=== PATIENT | female | born 1960 | race Caucasian/White ===

== ENCOUNTER 2016-10-07 15:15 | Inpatient (IN) | payer OTHER ==
[~2016-10-07] VITALS: Ht 165.1 cm; Wt 109.9 kg
[2016-10-07 15:15] VITALS: BP 148/76
[~2016-10-07 15:15] MED LIST: ACETAMINOPHEN-H1 TA2 PO; ADVAIR 250/501 EA INH; ALBUTEROL0.09 MG/A2 IH; ALBUTEROL2.5 MG/0.5 INH; ALLERGY MEDICAT25 MG PO; ALPRAZOLAM0.5 M3 PO; ALPRAZOLAM1 M2 PO; ALPRAZOLAM1 MG PO; AMITRIPTYLINE50 MG PO; AMOXIL500 MG PO; ASPIR 8181 MG PO; ASPIRIN325 MG PO; ASPIRIN81 M1 PO; ATARAX25 MG PO; ATIVAN1 MG PO; AUGMENTIN 875 M1 TAB PO; AZITHROMYCIN250 MG PO; BUDEPRION XL150 MG PO; BUPROPION ER100 M1 PO; BUPROPION HCL150 M2 PO; BUPROPION HCL300 MG PO; BUPROPION PO; CARAFATE1 G1 PO; CARVEDILOL3.125 MG PO; CEFTRIAXON2 GM/50 ML IV; CETIRIZINE10 MG PO; CILOXAN 5 ML5 M1 OP; COMBIVENT1 AR1 IH; COMBIVENT1 ARO IH; COREG6.25 MG PO; Clopidogrel75 MG PO; DELTASONE10 MG PO; DELTASONE20 MG PO; DIFLUCAN100 MG PO; DIFLUCAN150 MG PO; DIOVAN HCT 12.51 TA6 PO; DIOVAN160 M1 PO; DOLOPHINE5 MG PO; DUONEB 3 MG/3 ML3 M1 INH; DUONEB 3 MG/3 ML3 M1 NEB; EFFER-K10 MEQ PO; EFFIENT10 M1 PO; EFFIENT10 MG PO; EFFIENT5 MG PO; ELAVIL25 MG PO; FUROSEMIDE20 MG PO; GEMFIBROZIL600 MG PO; HYDROXYZINE PAM50 MG PO; IMDUR SA60 M1 PO; IMDUR SA60 MG PO; IMDUR30 MG PO; IMDUR60 MG PO; K-Dur 20MEQ20 MEQ PO; KEFLEX500 MG PO; KENALOG 0.1% OI15 GM T; LASIX20 MG PO; LEVOTHYROXINE PO; LEVOTHYROXINE300 MCG PO; LIDEX0.05% T; LISINOPRIL5 MG PO; LOPID600 M1 PO; LOPID600 MG PO; LYRICA100 MG PO; LYRICA150 MG PO; LYRICA300 MG PO; LYRICA50 MG PO; MEDROL DOSEPAK4 MG PO; METFORMIN500 MG PO; METHOCARBAMOL500 MG PO; MONTELUKAST SOD10 MG PO; MOTRIN800 MG PO; NEURONTIN100 MG PO; NEURONTIN300 MG PO; NICODERM21 MG/24 H TD; NITROSTAT0.4 MG SL; NIZORAL 2%15 GM T; NORCO 5-325 TA1 EACH PO; Oscal,Oyster S500 MG PO; PANTOPRAZOLE SO40 MG PO; PEPCID20 MG PO; PLAVIX75 MG PO; POTASSIUM CHLO20 ME3 PO; POTASSIUM PO; PRAVACHOL40 MG PO; PRAVASTATIN SOD40 MG PO; PREDNICOT10 MG PO; PREDNISOLONE OP; PREDNISONE10 MG PO; PREDNISONE20 MG PO; PREDNISONE50 MG PO; PRISTIQ100 MG PO; PRISTIQ50 MG PO; PROAIR HFA0.09 MG/AC INH; PROAIR HFA8.5 GM INH; PROTONIX40 MG PO; SEROQUEL25 MG PO; SIMVASTATIN80 MG PO; SINGULAIR10 MG PO; SLOW-K8 MEQ PO; SYMBICORT1 AE1 INH; SYNTHROID,LEVO25 MCG PO; SYNTHROID0.3 MG PO; Synthroid; Synthroid,Lev150 MCG PO; TIZANIDINE HCL2 MG PO; TOPAMAX200 MG PO; TRAMADOL HCL50 MG; TRAZODONE HYDR100 MG PO; TUSSI-ORGANIDI480 ML PO; ULTRAM100 MG PO; ULTRAM50 MG PO; VENTOLIN H0.09 MG/AC INH; VIBRAMYCIN100 MG PO; VICODIN 5/500 505 MG PO; VICODIN 500 MG-1 TAB PO; VICODIN1 TAB PO; VISTARIL25 MG PO; VITAMIN D50000 I2 PO; VITAMIN D50000 I3 PO; WELLBUTRIN XL300 MG PO; XANAX XR2 MG PO; XANAX1 MG PO; XANAX2 MG PO; ZIRGAN5 GM OP; ZITHROMAX Z PA250 MG PO; ZOCOR20 MG PO; ZOLPIDEM10 M1 PO; ZOVIRAX800 MG PO; ZYRTEC10 M1 PO; ZYRTEC10 MG PO; [UNRECOGNIZED DRUG - REMARK]; synthroid PO
[2016-10-07 15:41] VITALS: BP 136/87
[2016-10-07] MEDS ORDERED: METFORMIN1000 MG PO (15:57)
[2016-10-07] MEDS ORDERED: HUMALOG KW200 UNIT/1 SQ (16:01)
[2016-10-07] MEDS ORDERED: LIPITOR40 MG PO (16:01)
[2016-10-07] MEDS ORDERED: TYLENOL325 M1 PO (16:02)
[2016-10-07] MEDS ORDERED: WELLBUTRIN XL150 MG PO (16:03)
[2016-10-07 16:04] LABS: BASO # 0.1 10*3/uL (0.0-0.1); BASO % 0.7 % (0.0-1.0); EOS # 0.2 10*3/uL (0.0-0.4); HEMATOCRIT 35.2 % (37.0-47.0); HEMOGLOBIN 11.3 g/dl (12.0-16.0); IG # 0.1 10*3/uL (0.0-0.1); LYMPH # 1.6 10*3/uL (1.3-4.4); LYMPH % 22.3 % (27.0-41.0); MEAN CELL VOLUME 87.1 fl (81.0-99.0); MEAN CORPUSCULAR HGB CONC 32.1 g/dl (33.0-37.0); MEAN PLATELET VOLUME 9.6 fl (9.6-12.3); MONO # 0.5 10*3/uL (0.1-1.0); MONO % 6.6 % (3.0-9.0); NEUT # 4.8 10*3/uL (2.3-7.9); NEUT % 66.2 % (47.0-73.0); NUCLEATED RED BLOOD CELL 0.1 10*3/uL (0.0-0.0); NUCLEATED RED BLOOD CELL 0.7 % (0.0-0.0); PLATELET COUNT AUTOMATED 346 10*3/uL (130-400); RED BLOOD COUNT 4.04 10*6/uL (4.10-5.10); RED CELL DISTRI WIDTH 16.1 % (0-14.5); WHITE BLOOD COUNT 7.3 10*3/uL (4.8-10.8)
[2016-10-07] MEDS ORDERED: PREDNISONE10 MG PO (16:05)
[2016-10-07] MEDS ORDERED: PREDNISONE10 M1 PO (16:05)
[2016-10-07 16:11] VITALS: BP 135/94
[2016-10-07 16:13] LABS: PROTHROMBIN TIME 10.4 SECONDS (9.0-12.4)
[2016-10-07 16:20] LABS: BUN 14 mg/dl (7-24); CARBON DIOXIDE 26 mmol/L (21-32); CHLORIDE 109 mmol/L (98-107); EST GLOM FILT AFRICAN AMERICAN > 60 ml/min; GLUCOSE 133 mg/dL (65-99); POTASSIUM 4.2 mmol/L (3.5-5.1); SODIUM 145 mmol/L (136-145)
[2016-10-07 16:22] LABS: TROPONIN I < 0.015 ng/ml (<0.045)
[2016-10-07 18:16] VITALS: BP 129/51
[2016-10-07 18:17] LABS: CPK 32 U/L (26-192)
[2016-10-07 18:23] LABS: TROPONIN I < 0.015 ng/ml (<0.045)
[2016-10-07 21:44] VITALS: BP 113/70
[2016-10-08] VITALS: BP 128/42
[2016-10-08 00:56] LABS: CKMB 1.2 ng/ml (0.5-3.6); CPK 29 U/L (26-192)
[2016-10-08 00:57] LABS: TROPONIN I < 0.015 ng/ml (<0.045)
[2016-10-08 06:06] LABS: BASO % 0.5 % (0.0-1.0); EOS # 0.1 10*3/uL (0.0-0.4); EOS % 0.7 % (1.0-4.0); HEMATOCRIT 37.9 % (37.0-47.0); HEMOGLOBIN 11.8 g/dl (12.0-16.0); IG # 0.1 10*3/uL (0.0-0.1); LYMPH # 0.9 10*3/uL (1.3-4.4); LYMPH % 10.6 % (27.0-41.0); MEAN CELL VOLUME 87.9 fl (81.0-99.0); MEAN CORPUSCULAR HGB 27.4 pg (27.0-31.0); MEAN CORPUSCULAR HGB CONC 31.1 g/dl (33.0-37.0); MEAN PLATELET VOLUME 10.1 fl (9.6-12.3); MONO # 0.2 10*3/uL (0.1-1.0); MONO % 1.8 % (3.0-9.0); NEUT % 85.2 % (47.0-73.0); NUCLEATED RED BLOOD CELL 0.4 % (0.0-0.0); PLATELET COUNT AUTOMATED 358 10*3/uL (130-400); RED BLOOD COUNT 4.31 10*6/uL (4.10-5.10); RED CELL DISTRI WIDTH 16.1 % (0-14.5); WHITE BLOOD COUNT 8.2 10*3/uL (4.8-10.8)
[2016-10-08 06:09] LABS: CPK 26 U/L (26-192)
[2016-10-08 06:10] LABS: TROPONIN I < 0.015 ng/ml (<0.045)
[2016-10-08 06:38] LABS: ALBUMIN 3.2 gm/dl (3.1-4.5); BILIRUBIN, TOTAL 0.4 mg/dl (0.2-1.0); BUN 15 mg/dl (7-24); CARBON DIOXIDE 25 mmol/L (21-32); CHLORIDE 105 mmol/L (98-107); EST GLOM FILT AFRICAN AMERICAN > 60 ml/min; GLUCOSE 343 mg/dL (65-99); MAGNESIUM 1.9 mg/dL (1.5-2.1); PHOSPHOROUS 3.5 mg/dL (2.5-4.9); SGOT/AST 10 IU/L (3-35); SGPT/ALT 23 U/L (12-78); SODIUM 140 mmol/L (136-145); TOTAL PROTEIN 6.9 gm/dL (6.4-8.2)
[2016-10-08 06:39] LABS: ALKALINE PHOSPHATASE 96 U/L (45-117)
[2016-10-08 08:00] VITALS: BP 124/56
[2016-10-08] MEDS ORDERED: EFFIENT10 M1 PO (11:32)
[2016-10-08] MEDS ORDERED: NITROSTAT0.4 MG SL (11:32)
[2016-10-08] MEDS ORDERED: AMITRIPTYLINE50 MG PO (11:32)
[2016-10-08] MEDS ORDERED: WELLBUTRIN XL150 MG PO (11:32)
[2016-10-08] MEDS ORDERED: LOPID600 M1 PO (11:32)
[2016-10-08] MEDS ORDERED: LISINOPRIL5 MG PO (11:32)
[2016-10-08] MEDS ORDERED: LIPITOR40 MG PO (11:32)
[2016-10-08] MEDS ORDERED: COREG6.25 MG PO (11:32)
[2016-10-08] MEDS ORDERED: Synthroid,Lev150 MCG PO (11:33)
[2016-10-08] MEDS ORDERED: HUMALOG KW200 UNIT/1 SQ (11:33)
[2016-10-08] MEDS ORDERED: PANTOPRAZOLE SO40 MG PO (11:33)
[2016-10-08] MEDS ORDERED: PRISTIQ50 MG PO (11:33)
[2016-10-08] MEDS ORDERED: MONTELUKAST SOD10 MG PO (11:33)
[2016-10-08] MEDS ORDERED: ADVAIR 250/501 EA INH (11:33)
[2016-10-08] MEDS ORDERED: METFORMIN1000 MG PO (11:33)
[2016-10-08] MEDS ORDERED: POTASSIUM CHLO20 ME3 PO (11:33)
== END 2016-10-08 14:07 | disposition home or self-care (01) | DRG 392 ==
LOC: ED 15:15 → 5E 17:10 → EDHOLD 17:10 → 5E 17:38
PROVIDERS: Emergency Medicine; Internal Medicine
DX: K21.9 Gastro-esophageal reflux disease without esophagitis (principal); E11.40 Type 2 diabetes mellitus with diabetic neuropathy, unspecified; Z68.41 Body mass index [BMI] 40.0-44.9, adult; I25.119 Atherosclerotic heart disease of native coronary artery with unspecified angina pectoris; F41.9 Anxiety disorder, unspecified; J44.9 Chronic obstructive pulmonary disease, unspecified; R19.7 Diarrhea, unspecified; D64.9 Anemia, unspecified; E11.65 Type 2 diabetes mellitus with hyperglycemia; F32.9 Major depressive disorder, single episode, unspecified; I10 Essential (primary) hypertension; E03.9 Hypothyroidism, unspecified; F17.210 Nicotine dependence, cigarettes, uncomplicated; E66.01 Morbid (severe) obesity due to excess calories; Z90.49 Acquired absence of other specified parts of digestive tract; Z79.82 Long term (current) use of aspirin; Z79.51 Long term (current) use of inhaled steroids; Z79.899 Other long term (current) drug therapy; Z90.710 Acquired absence of both cervix and uterus; Z95.5 Presence of coronary angioplasty implant and graft; Z88.8 Allergy status to other drugs, medicaments and biological substances; Z91.041 Radiographic dye allergy status; Z82.49 Family history of ischemic heart disease and other diseases of the circulatory system; Z83.3 Family history of diabetes mellitus; Z82.3 Family history of stroke; Z82.0 Family history of epilepsy and other diseases of the nervous system

== ENCOUNTER → 2016-11-05 | Outpatient (CLI) | payer OTHER ==
[~2016-11-05] MED LIST changes: +HUMALOG KW200 UNIT/1 SQ; +LIPITOR40 MG PO; +METFORMIN1000 MG PO; +PREDNISONE10 M1 PO; +TYLENOL325 M1 PO; +WELLBUTRIN XL150 MG PO
== END | disposition home or self-care (01) ==
LOC: RESCLI 11-01 11:12
DX: E11.42 Type 2 diabetes mellitus with diabetic polyneuropathy (principal); J44.9 Chronic obstructive pulmonary disease, unspecified; E66.01 Morbid (severe) obesity due to excess calories; R53.1 Weakness; G62.9 Polyneuropathy, unspecified; E03.9 Hypothyroidism, unspecified; Z72.0 Tobacco use

== ENCOUNTER → 2017-05-05 | Outpatient (CLI) | payer OTHER | END | disposition home or self-care (01) | LOC: RESCLI 04:37 | DX: K21.9 Gastro-esophageal reflux disease without esophagitis (principal); E11.42 Type 2 diabetes mellitus with diabetic polyneuropathy; J30.2 Other seasonal allergic rhinitis; J44.9 Chronic obstructive pulmonary disease, unspecified; E66.01 Morbid (severe) obesity due to excess calories; F32.9 Major depressive disorder, single episode, unspecified; E55.9 Vitamin D deficiency, unspecified; E03.9 Hypothyroidism, unspecified; I25.10 Atherosclerotic heart disease of native coronary artery without angina pectoris; I10 Essential (primary) hypertension; E78.2 Mixed hyperlipidemia; Z72.0 Tobacco use; Z88.5 Allergy status to narcotic agent ==

== ENCOUNTER → 2017-08-29 | Outpatient (CLI) | payer OTHER | END | disposition home or self-care (01) | LOC: LAB 14:18 | DX: E11.42 Type 2 diabetes mellitus with diabetic polyneuropathy (principal) ==

== ENCOUNTER 2017-09-16 11:48 | Inpatient (IN) | payer OTHER ==
[~2017-09-16] VITALS: Ht 175.2 cm; Wt 104.1 kg
--- NOTE | ~2017-09-16 | PR ---
[place], [place] PROGRESS NOTE NAME: MODESTA SHAH [facility] #: [id number] UNIT #: [id number] ROOM: 411 DOCTOR: EVA FAGAN MD,RENAN BIRTHDATE: [birth year] DOS: 09/20/2017 PULMONARY PROGRESS NOTE SUBJECTIVE: She has a bronchoscopy done yesterday without any difficulty. She has not been noted any symptoms of chest pain or any abdominal pain. The shortness of breath has been noted better after bronchoscopy. Cough has been also noted decreased. She denies symptoms of hemoptysis or any chest pain. The patient does have mild edema of the lower extremity, still complaining of weakness and fatigue. Denies symptoms of hematuria or hemoptysis. Remaining systems were reviewed. They were noted all negative. OBJECTIVE: VITAL SIGNS: For the patient shows a normal temperature, respiratory rate 18-20, heart rate of 89-54, blood pressure 120/53 to 128/66. The pulse oxygen saturation on 3 liters 95% saturation. HEENT: Examination shows head was atraumatic. Eyes nonicterus. NECK: Supple. CARDIOVASCULAR: S1, S2 is audible. LUNGS: Still noted with wheezing, but noted decreased from examination prior to bronchoscopy yesterday. ABDOMEN: Soft and obese. EXTREMITIES: Chronic obesity with mild ankle edema. SKIN: No lesions or rashes. MUSCULOSKELETAL: Without any acute deformities. CENTRAL NERVOUS SYSTEM: No focal deficit. Cranial nerves are intact. LABORATORY DATA: The patient's urine Legionella antigen and strep antigen both noted as negative. CBC this morning essentially noted as normal. The BMP this morning, glucose of 349, BUN 29, remaining CBC was normal. IMPRESSION: 1. The patient who has been currently noted with reduction of the respiratory symptoms, still noted severe acute exacerbation of chronic obstructive pulmonary disease with wheezing. 2. Mild azotemia. The patient remains persistent secondary to corticosteroids. 3. Uncontrolled hyperglycemia, improving reduction of corticosteroids. 4. Obstructive sleep apnea disorder as well with obesity hypoventilation and acute chronic hypercapnic respiratory failure as well. PLAN OF MANAGEMENT: The patient settings on the noninvasive ventilator change the patient to have showed tidal volume between 670 mL at nighttime. Overnight pulse oximetry for the patient will be done to assess any further hypoxia or adjustment of the setting, either the oxygen on the ventilator need to be made accordingly. Continue current dose of corticosteroids, bronchodilators, and other treatment plan to be continued as in progress. Other additional treatment changes to be made based on progression of the illness with current treatment. Continue current dose of corticosteroids. Monitor culture results, bronchial washings noted with normal yrn. Usual care. [place], [place] PROGRESS NOTE NAME: MODESTA SHAH An[facility] UNIT #: [id number] ROOM: 411 DOCTOR: RENAN RAHMAN MD BIRTHDATE: [birth year] RENAN VELASQUEZ MD CM:PNTRANS [id number] RENAN FAGAN MD 09/20/17 1037 interface
--- NOTE | ~2017-09-16 | CON ---
[place], [place] REPORT OF CONSULTATION NAME: MODESTA SHAH [facility] #: [id number] UNIT #: [id number] ROOM: 411 DOCTOR: RENAN RAHMAN MD BIRTHDATE: [birth year] DOS: 09/17/2017 PULMONARY CONSULTATION REASON FOR CONSULTATION: Assessment of COPD and other ongoing symptoms. The consultation done at the request of the hospitalist services. HISTORY OF PRESENT ILLNESS: This is a 57-year-old white female patient who has been known to me from the past. She has been known with history of obstructive sleep apnea disorder as well as COPD and bronchial asthma, presented to the Emergency as the patient is complaining of having symptoms of nonspecific chest pain across the chest associated with symptoms of shortness of breath, but the symptoms have been noted gradually worsening. She was seen by the primary care physician as well and was treated with oral medications. Symptoms not improving. Symptoms started 2 weeks ago with gradual progression reported. She denies symptoms of hemoptysis. The patient complained of symptoms of wheezing as well. Shortness of breath occurring with mild exertion. The pain was described stabbing in nature intermittently. The pains scale was discussed 7-10 on admission. REVIEW OF SYSTEMS: CONSTITUTIONAL: Fatigue and tiredness reported without symptoms of fever or chills. EYES: Denies any burning, redness, or tenderness. EARS, NOSE AND THROAT: Denies sore throat, hoarseness, otalgia, postnasal drainage or epistaxis. CARDIOVASCULAR: Denies anginal pain, edema, palpitations. GASTROINTESTINAL: Denies dysphagia, nausea, vomiting, diarrhea, abdominal pain, hematemesis, melena, or hematochezia. SKIN: Denies any lesions or rashes. MUSCULOSKELETAL: Without any joint pain, redness, tenderness or deformities. CENTRAL NERVOUS SYSTEM: No dizziness, headache, diplopia, syncopal episodes or seizures. Remaining systems were reviewed with the patient, they were noted all negative. PAST MEDICAL HISTORY: 1. Centrilobular emphysema. 2. Uncomplicated severe persistent bronchial asthma. 3. Essential hypertension. 4. Noncompliance with the medications, which has been known previously. 5. Essential hypertension. 6. Coronary artery disease. 7. Hypercholesterolemia. 8. Gastroesophageal reflux. 9. Obstructive sleep apnea disorder. 10. Hypothyroidism. 11. Anxiety disorder. 12. Obesity. [place], [place] REPORT OF CONSULTATION [id number] UN[facility] #: [id number] ROOM: 411 DOCTOR: EVA FAGAN MD,RENAN BIRTHDATE: [birth year] PAST SURGICAL HISTORY: 1. T and A. 2. Appendectomy. 3. Cholecystectomy. 4. Complete hysterectomy. 5. Thyroidectomy. 6. Cardiac catheterization with coronary stent insertion. 7. Therapeutic bronchoscopy. The last one was done for this patient in August 2016. SOCIAL HISTORY: The patient lives in her home. She has been noted with history of tobacco use up to 3 packs of cigarettes per day with intermittent reduction of the tobacco use. There was no history of alcohol use, illicit drug use. FAMILY HISTORY: Noted for CVA, hypertension, and coronary artery disease. MEDICATIONS: Current medications administrated: The patient noted use of vitamin D, Singulair, gemfibrozil, Imdur, lisinopril, Pravachol, Lovenox for DVT prophylaxis, levothyroxine, Protonix, Coreg, aspirin, Mucinex, Dulera, nicotine replacement patches, trazodone, DuoNeb, Lyrica, Levaquin, and other p.r.n. medication administration. The patient was also getting IV Solu-Medrol at the dose of 60 mg every 8 hours. DRUG ALLERGIES: THE PATIENT NOTED ALLERGY TO: 1. IVP DYE. 2. CODEINE PHOSPHATE. PHYSICAL EXAMINATION: GENERAL: This is a 57-year-old female patient currently sitting in bed without any acute distress. Height of 5 feet 9 inches, weight of 229, BMI 33.9. VITAL SIGNS: Normal temperature, respiratory rate of 20-24, heart rate 76-80, blood pressure 136/90-114/54. The pulse oxygen saturation of the patient recorded as 91% saturation on 2 liters nasal cannula. HEAD AND NECK: Shows head was atraumatic. Neck supple. Exophthalmos. Eyes nonicterus. CARDIOVASCULAR: S1, S2 is audible. LUNGS: The patient was noted with a diffuse expiratory wheezing. The patient noted without any crackles. ABDOMEN: Soft with chronic moderate severe obesity. Bowel sounds present. No tenderness. CENTRAL NERVOUS SYSTEM: The patient's cranial nerves 2-12 intact. MUSCULOSKELETAL: Noted without any acute deformities. SKIN: No abnormal lesions or rashes. CENTRAL NERVOUS SYSTEM: Cranial nerves 2-12 intact. LABORATORY DATA: CBC that was done for patient on admission yesterday as hemoglobin 15.7, WBC count normal, platelet count were normal. CMP of the patient yesterday on admission, glucose 343, normal BUN and creatinine. The influenza A and B, nasal washing antigen yesterday noted as negative. Bedside blood glucose ranged between 685-467 in the last 24 hours. CBC this morning, [place], [place] REPORT OF CONSULTATION NAME: MODESTA SHAH UNIT #: [id number] ROOM: 411 DOCTOR: RENAN RAHMAN MD BIRTHDATE: [birth year] WBC count 15.7, hemoglobin and hematocrit, platelet count normal. PT and INR of the patient noted normal this morning. CMP this morning, glucose 242, BUN and creatinine was normal. LAD was normal except alkaline phosphatase minimally elevated at 136. Review of the radiology data for this patient was also done. The chest x-ray that was done for this patient on 09/16/2017 was noted as hyperinflation changes of chronic obstructive pulmonary disease with linear atelectasis noted in the right lower lung. The patient had a CT scan of the chest, which was done without contrast yesterday and was noted with areas of tree-in-bud appearance and mucus impaction of the major airways was also noted. IMPRESSION: 1. The patient has ongoing acute severe exacerbation of chronic obstructive pulmonary disease and bronchial asthma. 2. History of obstructive sleep apnea disorder. 3. Severely uncontrolled diabetes mellitus. 4. Impaction of the mucus in the airways was also noted as well. 5. Chronic severe obesity as well. 6. History of chronic nicotine dependence as well. PLAN OF TREATMENT: Reduce the dose of Solu-Medrol 40 mg every 8 hours to reduce the hyperglycemia. Continue Mucinex with the flutter valve for the patient. Consider Fiberoptic bronchoscopy in the next couple of days if the symptom remains persistent, does not resolve or improve with current conservative treatment. Usual care, other supportive therapy, plan of management, aggressive medical management for diabetes will be continued. Nicotine replacement patches be continued for the patient as well to overcome nicotine withdrawal. Use of the CPAP/BiPAP at nighttime for obstructive sleep apnea disorder, long-term management. Thank you for allowing me to participate in the care of this patient. RENAN VELASQUEZ MD CM:CONSTR:REPORT OF CONSULTATION 1323 09/17/17 2329 interface
--- NOTE | ~2017-09-16 | PROC NOTE ---
[place], [place] PROCEDURE NOTE NAME: MODESTA SHAH UNIT #: [id number] ROOM: 411 DOCTOR: EVA FAGAN MD,RENAN BIRTHDATE: [birth year] DOS: 09/19/2017 PREOPERATIVE DIAGNOSIS: The patient with evidence of ongoing cough suspected mucous impaction major airway. POSTOPERATIVE DIAGNOSIS: The patient with evidence of ongoing cough suspected mucous impaction major airway. PROCEDURE DESCRIPTION: Informed consent obtained with the patient. The patient brought to the OR and placed in a supine position. Conscious sedation administered by the Anesthesia Department. After reviewing proper sedation, airway introduced into the mouth. Bronchoscope advanced to the airway into laryngeal area. Epiglottis and vocal cords were seen. Bronchoscope advanced to vocal cord into tracheal lumen. Tracheal lumen noted moderate amount of very thick mucus, which was suctioned out to the torito level. The right upper, right middle, right lower, left upper, lingular, and lower lobe bronchi were all examined. Moderate amount of thick plugs of the mucus were present in endobronchial tree bilaterally, which were cleared with half normal saline wash, sent for culture. Procedure well tolerated by the patient without difficulty. Postoperative finding will be discussed once the patient recovered the effects of acute sedation. RENAN VELASQUEZ MD CM:PROCNOTE:PROCEDURE NOTE 1159 [id number] RENAN FAGAN MD
--- NOTE | ~2017-09-16 | EKG ---
[place], [place] ELECTROCARDIOGRAM REPORT NAME: MODESTA SHAH UNIT #: [id number] ROOM: 411 DOCTOR: EVA FAGAN MD,RENAN BIRTHDATE: [birth year] DOS: 09/18/2017 FINDINGS: Electrocardiogram was done on 09/18/2017 for this patient at 1:51 p.m. Right bundle branch block were noted for the patient normal sinus rhythm with heart rate of 71 beats per minute. Possible old inferior myocardial infarction was suspected. RENAN VELASQUEZ MD CM:EKGRPT:ELECTROCARDIOGRAM REPORT [id number] 1533 RENAN FAGAN MD
--- NOTE | ~2017-09-16 | PR ---
[place], [place] PROGRESS NOTE [id number] #: [id number] ROOM: 411 DOCTOR: EVA FAGAN MD,RENAN BIRTHDATE: [birth year] DOS: 09/18/2017 PULMONARY PROGRESS NOTE SUBJECTIVE: She has been noted with severe cough ____ episodic. The patient without any sputum expectoration. Also, noted with hyperglycemia with elevation in blood sugars significantly more than 500, the bedside recorded. She does have symptoms of wheezing as well as shortness of breath. The patient remains unchanged. The patient not noted any symptoms of hemoptysis. The remaining systems were reviewed and they were noted all negative. OBJECTIVE: VITAL SIGNS: For the patient, which has been recorded shows the temperature remains normal, respiratory rate 18, heart rate 80, blood pressure 130/74 to 140/72. The pulse oxygen saturation of the patient recorded as 97% saturation on 3 liters of cannula. HEENT: Examination shows head was atraumatic. Eyes nonicterus. NECK: Supple. CARDIOVASCULAR: S1, S2 is audible. LUNGS: Noted with a few reduction in breath sounds with moderate expiratory wheezing bilaterally. There were no crackles. ABDOMEN: Noted soft with chronic moderate severe obesity. EXTREMITIES: Without any acute edema. SKIN: With no lesions or rashes. MUSCULOSKELETAL: Without any acute deformities. GENITOURINARY: Intact. LABORATORY DATA: CBC today: WBC count 20.2. Hemoglobin and hematocrit were normal. Platelet count was normal. Neutrophils were 91%. The BMP of patient's glucose 314, BUN 24, and creatinine 0.82. Remaining labs were normal. The blood culture showed no bacterial growth. The bedside blood glucose, which was done today was 550, yesterday noted at the bedside at 479. IMPRESSION: 1. Persistent ongoing severe acute exacerbation of chronic obstructive pulmonary disease chronic obstructive disease and bronchial asthma with the mucus impaction and excessive severe nonproductive cough. 2. Uncontrolled hyperglycemia secondary use of corticosteroids as well. 3. Obstructive sleep apnea disorder as well. 4. Chronic hypercapnia as well with noninvasive ventilator noted severe hypoxia. Noted, outpatient assessment use of oxygen supplementation noninvasive ventilator. PLAN OF TREATMENT: Reduce the Solu-Medrol 40 mg b.i.d. Continue antibiotic. The patient was assessed for therapy bronchoscopy planned to be done tomorrow morning. Reduction of Solu-Medrol will result in improvement in the severe hyperglycemia as well. Continue bronchodilator. The short tidal volume for the patient on the noninvasive ventilator, the patient to be set at the target volume 500 mL. Once that level is achieved for this patient, overnight pulse oximetry will be done to assess the appropriate improvement in the hypoxia as [place], [place] PROGRESS NOTE NAME: MODESTA SHAH UNIT #: [id number] ROOM: 411 DOCTOR: EVA FAGAN MD,RENAN BIRTHDATE: [birth year] well. Keep the patient on medical management. The patient to have any rather for the medical management, nicotine withdrawal for this patient as well with history of chronic nicotine dependence. RENAN VELASQUEZ MD CM:PNTRANS 1318 1730 RENAN FAGAN MD 09/18/17 1728 interface
--- NOTE | ~2017-09-16 | PR ---
[place], [place] PROGRESS NOTE NAME: MODESTA SHAH [facility] #: [id number] UNIT #: [id number] ROOM: 411 DOCTOR: EVA FAGAN MDRENAN BIRTHDATE: [birth year] DOS: 09/19/2017 SUBJECTIVE: The patient still noted with severe cough, noted an episode that could last about half a minute or more. She is not able to expectorate sputum. The chest pain reported because of the cough, wheezing. The patient was also noted with shortness of breath that remains unchanged from yesterday. The patient has been continued on intravenous corticosteroids, bronchodilators, and antibiotics. She has been using the BiPAP as well. The patient denies symptoms of hemoptysis. Denies symptoms of abdominal pain. The patient is currently noted n.p.o. past midnight for bronchoscopy. She does report some edema of the lower extremity. General weakness and fatigue, persisted. She has been ordered physical therapy. Remaining systems were reviewed with the patient, they were noted all negative. OBJECTIVE: VITAL SIGNS: Normal temperature, respiratory rate 20, heart rate 75, blood pressure 132/76. The pulse oxygen saturation on 3 liter nasal cannula 92%-97% saturation. HEENT: Chronic obesity. Head was atraumatic. Eyes, nonicterus. Exophthalmos is a chronic finding. CARDIOVASCULAR: S1, S2 audible. LUNGS: The patient was noted without any crackles. Diffuse expiratory wheezing was present, unchanged. ABDOMEN: Soft, nontender, positive present. EXTREMITIES: Mild edema of the lower extremity were noted. SKIN: No lesions or rashes. MUSCULOSKELETAL: Without acute deformities. CENTRAL NERVOUS SYSTEM: Intact fully. LABORATORY DATA: The BMP of this morning; BUN 76, decreased from previous level, BUN 29, creatinine was normal. Remaining electrolytes normal. CBC that was done today showed WBC count 11.1, remaining CBC was normal. The bedside blood glucose has been improving and gradually decreased. Blood glucose checks were noted less than 400 in the last 3 assessments. IMPRESSION: 1. Currently noted with findings of an acute severe exacerbation of chronic obstructive pulmonary disease, acute tracheobronchitis, mucous impaction suspected, and mild edema of the lower extremity secondary to current acute exacerbation of chronic obstructive pulmonary disease as well as corticosteroids. 2. Mild azotemia secondary to corticosteroid. 3. Severely uncontrolled hyperglycemia, which has been improving. Reduction of corticosteroids and the medical management, and optimization of the CPAP was continued. PLAN OF TREATMENT: The patient would be continued on the current plan of management at this time with the dose of the corticosteroids remains the same as yesterday decreased out to 40 mg b.i.d. dosing. Continue bronchodilators. [place], [place] PROGRESS NOTE NAME: MODESTA SHAH UNIT #: [id number] ROOM: 411 DOCTOR: EVA FAGAN MD,RENAN BIRTHDATE: [birth year] Monitor culture results. Care for diuresis for monitoring kidney function. Supportive therapy provided. Additional changes in treatment will be recommended after the bronchoscopy, if necessary. RENAN VELASQUEZ MD CM:GIL 1157 [id number] RENAN FAGAN MD 09/20/17 0343 interface
--- NOTE | ~2017-09-16 | EKG ---
[place], [place] ELECTROCARDIOGRAM REPORT NAME: MODESTA SHAH UNIT #: [id number] ROOM: 411 DOCTOR: TOSHA KATE MD BIRTHDATE: [birth year] DOS: 09/16/2017 EKG REPORT TIME: 12:54:36 hours. RATE AND RHYTHM: Normal sinus rhythm at 74 beats per minute. IN interval 145 milliseconds, QRS duration 143 milliseconds, corrected QT interval is 470 milliseconds, QRS axis is 67. IMPRESSION: 1. Normal sinus rhythm. 2. Right bundle-branch block. 3. Abnormal EKG. TOSHA KATE MD CM:EKGRPT:ELECTROCARDIOGRAM REPORT 0958 1244 TOSHA KATE MD
[2017-09-16 11:51] VITALS: BP 119/44
[2017-09-16 12:58] LABS: BILIRUBIN NEGATIVE (NEGATIVE); BLOOD NEGATIVE (NEGATIVE); CLARITY CLEAR (CLEAR); COLOR YELLOW (YELLOW); GLUCOSE 3+ (NEGATIVE); KETONE NEGATIVE (NEGATIVE); LEUKO ESTERASE NEGATIVE (NEGATIVE); NITRITE NEGATIVE (NEGATIVE); UROBILINOGEN 0.2 E.U./dl (0.2-1.0)
[2017-09-16 13:02] VITALS: BP 115/55
[2017-09-16] MEDS ORDERED: ATIVAN1 MG PO (13:06)
[2017-09-16 13:08] LABS: RBC 0-2 rbc/hpf (0-2); WBC 0-2 wbc/hpf (0-5); YEAST TRACE
[2017-09-16 13:08] LABS: BASO # 0.1 10*3/uL (0.0-0.1); BASO % 1.4 % (0.0-1.0); EOS # 0.4 10*3/uL (0.0-0.4); EOS % 3.8 % (1.0-4.0); HEMATOCRIT 46.8 % (37.0-47.0); HEMOGLOBIN 15.7 g/dl (12.0-16.0); LYMPH # 1.8 10*3/uL (1.3-4.4); LYMPH % 18.4 % (27.0-41.0); MEAN CELL VOLUME 91.2 fl (81.0-99.0); MEAN CORPUSCULAR HGB 30.6 pg (27.0-31.0); MEAN CORPUSCULAR HGB CONC 33.5 g/dl (33.0-37.0); MONO # 0.4 10*3/uL (0.1-1.0); MONO % 4.3 % (3.0-9.0); NEUT # 6.9 10*3/uL (2.3-7.9); NEUT % 71.7 % (47.0-73.0); PLATELET COUNT AUTOMATED 265 10*3/uL (130-400); RED BLOOD COUNT 5.13 10*6/uL (4.10-5.10); RED CELL DISTRI WIDTH 14.7 % (0-14.5); WHITE BLOOD COUNT 9.7 10*3/uL (4.8-10.8)
[2017-09-16 13:28] LABS: ALBUMIN 3.7 gm/dl (3.1-4.5); ALKALINE PHOSPHATASE 138 U/L (45-117); BUN 17 mg/dl (7-24); CHLORIDE 101 mmol/L (98-107); CREATININE 0.91 mg/dL (0.55-1.02); POTASSIUM 4.5 mmol/L (3.5-5.1); SGOT/AST 17 IU/L (3-35); SGPT/ALT 26 U/L (12-78); SODIUM 137 mmol/L (136-145); TOTAL PROTEIN 7.8 gm/dL (6.4-8.2)
[2017-09-16 13:29] LABS: TROPONIN I < 0.015 ng/ml (<0.045)
[2017-09-16 14:11] VITALS: BP 107/58
[2017-09-16] MEDS ORDERED: Imdur SA60 MG PO (15:40)
[2017-09-16 16:00] VITALS: BP 136/90
[2017-09-16 20:00] VITALS: BP 146/65
[2017-09-17] VITALS: BP 114/54
[2017-09-17 06:18] LABS: BASO # 0.1 10*3/uL (0.0-0.1); BASO % 0.6 % (0.0-1.0); EOS # 0.1 10*3/uL (0.0-0.4); EOS % 0.3 % (1.0-4.0); HEMATOCRIT 46.3 % (37.0-47.0); HEMOGLOBIN 15.8 g/dl (12.0-16.0); LYMPH # 1.2 10*3/uL (1.3-4.4); LYMPH % 7.7 % (27.0-41.0); MEAN CORPUSCULAR HGB 31.4 pg (27.0-31.0); MEAN CORPUSCULAR HGB CONC 34.1 g/dl (33.0-37.0); MONO # 0.2 10*3/uL (0.1-1.0); MONO % 1.4 % (3.0-9.0); NEUT % 89.4 % (47.0-73.0); PLATELET COUNT AUTOMATED 261 10*3/uL (130-400); RED BLOOD COUNT 5.03 10*6/uL (4.10-5.10); RED CELL DISTRI WIDTH 14.6 % (0-14.5); WHITE BLOOD COUNT 15.7 10*3/uL (4.8-10.8)
[2017-09-17 06:47] LABS: INTERNATIONAL NORM RATIO 0.9 (2.0-3.5)
[2017-09-17 06:51] LABS: ALBUMIN 3.5 gm/dl (3.1-4.5); ALKALINE PHOSPHATASE 136 U/L (45-117); BUN 17 mg/dl (7-24); CHLORIDE 105 mmol/L (98-107); CHOLESTEROL 188 mg/dL (<200); CREATININE 0.77 mg/dL (0.55-1.02); HDL CHOLESTEROL 32 mg/dl (40-60); LDL CHOLESTEROL 109 mg/dL (9-159); PHOSPHOROUS 2.6 mg/dL (2.5-4.9); POTASSIUM 4.4 mmol/L (3.5-5.1); SGOT/AST 12 IU/L (3-35); SGPT/ALT 25 U/L (12-78); SODIUM 140 mmol/L (136-145); TOTAL PROTEIN 7.7 gm/dL (6.4-8.2); TRIGLYCERIDES 234 mg/dl (<150); VLDL CHOLESTEROL 47 mg/dL (6-40)
[2017-09-17 07:31] LABS: VITAMIN D, 25-HYDROXY 16.5 ng/mL (30-100)
[2017-09-17 08:00] VITALS: BP 132/58
[2017-09-17 12:00] VITALS: BP 130/65
[2017-09-17 16:00] VITALS: BP 94/44
[2017-09-17 20:12] VITALS: BP 122/74
[2017-09-18] VITALS: BP 145/61
[2017-09-18 06:40] LABS: HEMATOCRIT 43.5 % (37.0-47.0); HEMOGLOBIN 14.4 g/dl (12.0-16.0); MEAN CELL VOLUME 92.9 fl (81.0-99.0); MEAN CORPUSCULAR HGB 30.8 pg (27.0-31.0); MEAN CORPUSCULAR HGB CONC 33.1 g/dl (33.0-37.0); MEAN PLATELET VOLUME 11.4 fl (9.6-12.3); PLATELET COUNT AUTOMATED 238 10*3/uL (130-400); RED BLOOD COUNT 4.68 10*6/uL (4.10-5.10); RED CELL DISTRI WIDTH 14.5 % (0-14.5); WHITE BLOOD COUNT 20.2 10*3/uL (4.8-10.8)
[2017-09-18 07:04] LABS: CHLORIDE 104 mmol/L (98-107); POTASSIUM 4.7 mmol/L (3.5-5.1); SODIUM 137 mmol/L (136-145)
[2017-09-18 07:17] LABS: BUN 24 mg/dl (7-24); CREATININE 0.82 mg/dL (0.55-1.02)
[2017-09-18 07:23] LABS: PLATELET SUFFICIENCY NORMAL (NORMAL); TOTAL CELLS COUNTED 100 #CELLS; TOXIC GRANULATION SLIGHT
[2017-09-18 08:00] VITALS: BP 140/72
[2017-09-18 12:00] VITALS: BP 138/74
[2017-09-18 16:00] VITALS: BP 136/64
[2017-09-18 20:00] VITALS: BP 138/63
[2017-09-19] VITALS (9 sets, daily range): BP systolic 92–134; BP diastolic 42–83
[2017-09-19 05:54] LABS: BASO % 0.2 % (0.0-1.0); EOS % 0.1 % (1.0-4.0); HEMOGLOBIN 13.9 g/dl (12.0-16.0); LYMPH # 0.9 10*3/uL (1.3-4.4); LYMPH % 7.7 % (27.0-41.0); MEAN CELL VOLUME 92.3 fl (81.0-99.0); MEAN CORPUSCULAR HGB 31.3 pg (27.0-31.0); MEAN CORPUSCULAR HGB CONC 33.9 g/dl (33.0-37.0); MEAN PLATELET VOLUME 11.5 fl (9.6-12.3); MONO # 0.2 10*3/uL (0.1-1.0); MONO % 2.2 % (3.0-9.0); NEUT # 9.9 10*3/uL (2.3-7.9); NEUT % 88.7 % (47.0-73.0); PLATELET COUNT AUTOMATED 198 10*3/uL (130-400); RED BLOOD COUNT 4.44 10*6/uL (4.10-5.10); RED CELL DISTRI WIDTH 14.4 % (0-14.5); WHITE BLOOD COUNT 11.1 10*3/uL (4.8-10.8)
[2017-09-19 06:15] LABS: BUN 29 mg/dl (7-24); CHLORIDE 103 mmol/L (98-107); CREATININE 0.91 mg/dL (0.55-1.02); PHOSPHOROUS 3.7 mg/dL (2.5-4.9); POTASSIUM 4.6 mmol/L (3.5-5.1); SODIUM 137 mmol/L (136-145)
[2017-09-20] VITALS: BP 120/53
[2017-09-20 06:20] LABS: BASO % 0.2 % (0.0-1.0); EOS % 0.1 % (1.0-4.0); HEMATOCRIT 41.8 % (37.0-47.0); HEMOGLOBIN 14.2 g/dl (12.0-16.0); LYMPH # 0.9 10*3/uL (1.3-4.4); LYMPH % 9.8 % (27.0-41.0); MEAN CELL VOLUME 92.9 fl (81.0-99.0); MEAN CORPUSCULAR HGB 31.6 pg (27.0-31.0); MEAN PLATELET VOLUME 11.5 fl (9.6-12.3); MONO # 0.3 10*3/uL (0.1-1.0); MONO % 3.1 % (3.0-9.0); NEUT # 8.2 10*3/uL (2.3-7.9); PLATELET COUNT AUTOMATED 189 10*3/uL (130-400); RED CELL DISTRI WIDTH 14.6 % (0-14.5); WHITE BLOOD COUNT 9.6 10*3/uL (4.8-10.8)
[2017-09-20 06:47] LABS: BUN 29 mg/dl (7-24); CHLORIDE 99 mmol/L (98-107); CREATININE 0.87 mg/dL (0.55-1.02); POTASSIUM 4.3 mmol/L (3.5-5.1); SODIUM 137 mmol/L (136-145)
[2017-09-20 08:00] VITALS: BP 128/66
[2017-09-20] MEDS ORDERED: LEVEMIR100 UNIT/1 SC (11:36)
[2017-09-20] MEDS ORDERED: DOXYCYCLINE100 M3 PO (11:36)
[2017-09-20] MEDS ORDERED: ATIVAN1 MG PO (11:36)
[2017-09-20] MEDS ORDERED: LYRICA300 MG PO ×2 (11:36→11:38)
[2017-09-20] MEDS ORDERED: NORCO 5-325 TA1 EACH PO (11:36)
[2017-09-20] MEDS ORDERED: PREDNISONE10 MG PO (11:36)
[2017-09-20 12:00] VITALS: BP 95/58
[2017-09-20 14:03] LABS: ACID FAST SPEC PROCESSING Concentration (.)
== END 2017-09-20 15:45 | disposition other institution (70) | DRG 871 ==
LOC: ED 11:48 → EDHOLD 14:36 → 4E 14:36
PROVIDERS: Emergency Medicine; Hospitalist; Internal Medicine Critical Care Medicine; Internal Medicine Nephrology
DX: A41.9 Sepsis, unspecified organism (principal); J18.9 Pneumonia, unspecified organism; J96.21 Acute and chronic respiratory failure with hypoxia; T17.490A Other foreign object in trachea causing asphyxiation, initial encounter; T17.590A Other foreign object in bronchus causing asphyxiation, initial encounter; I11.0 Hypertensive heart disease with heart failure; I50.9 Heart failure, unspecified; J96.22 Acute and chronic respiratory failure with hypercapnia; J44.1 Chronic obstructive pulmonary disease with (acute) exacerbation; J44.0 Chronic obstructive pulmonary disease with (acute) lower respiratory infection; E11.42 Type 2 diabetes mellitus with diabetic polyneuropathy; K21.9 Gastro-esophageal reflux disease without esophagitis; E11.65 Type 2 diabetes mellitus with hyperglycemia; E66.01 Morbid (severe) obesity due to excess calories; G47.33 Obstructive sleep apnea (adult) (pediatric); J20.9 Acute bronchitis, unspecified; E78.00 Pure hypercholesterolemia, unspecified; E89.0 Postprocedural hypothyroidism; F32.9 Major depressive disorder, single episode, unspecified; F41.9 Anxiety disorder, unspecified; E55.9 Vitamin D deficiency, unspecified; G89.29 Other chronic pain; T38.0X5A Adverse effect of glucocorticoids and synthetic analogues, initial encounter; Z68.33 Body mass index [BMI] 33.0-33.9, adult; X58.XXXA Exposure to other specified factors, initial encounter; I25.10 Atherosclerotic heart disease of native coronary artery without angina pectoris; Z71.6 Tobacco abuse counseling; Z72.0 Tobacco use; Z79.4 Long term (current) use of insulin; Z95.5 Presence of coronary angioplasty implant and graft; Z79.899 Other long term (current) drug therapy; Z88.6 Allergy status to analgesic agent; Z91.041 Radiographic dye allergy status; Z79.82 Long term (current) use of aspirin; Z90.49 Acquired absence of other specified parts of digestive tract; Z82.49 Family history of ischemic heart disease and other diseases of the circulatory system; Z83.3 Family history of diabetes mellitus; Z82.0 Family history of epilepsy and other diseases of the nervous system; Z82.3 Family history of stroke; Z79.84 Long term (current) use of oral hypoglycemic drugs; Y92.89 Other specified places as the place of occurrence of the external cause; Z91.14 Patient's other noncompliance with medication regimen; Z90.710 Acquired absence of both cervix and uterus; Y93.89 Activity, other specified; Y99.8 Other external cause status

== ENCOUNTER → 2017-11-26 | Outpatient (CLI) | payer OTHER ==
[~2017-11-26] MED LIST changes: +DOXYCYCLINE100 M3 PO; +Imdur SA60 MG PO; +LEVEMIR100 UNIT/1 SC
== END | disposition home or self-care (01) ==
LOC: RESCLI 01:26
DX: Z12.31 Encounter for screening mammogram for malignant neoplasm of breast (principal); F41.9 Anxiety disorder, unspecified; J44.9 Chronic obstructive pulmonary disease, unspecified; E03.9 Hypothyroidism, unspecified; I10 Essential (primary) hypertension; E11.42 Type 2 diabetes mellitus with diabetic polyneuropathy; E78.2 Mixed hyperlipidemia; E55.9 Vitamin D deficiency, unspecified; J30.2 Other seasonal allergic rhinitis; F32.9 Major depressive disorder, single episode, unspecified; K21.9 Gastro-esophageal reflux disease without esophagitis; E66.01 Morbid (severe) obesity due to excess calories; M54.42 Lumbago with sciatica, left side; E53.8 Deficiency of other specified B group vitamins; L40.9 Psoriasis, unspecified; I25.10 Atherosclerotic heart disease of native coronary artery without angina pectoris; M65.341 Trigger finger, right ring finger; M25.531 Pain in right wrist; H00.014 Hordeolum externum left upper eyelid; F17.210 Nicotine dependence, cigarettes, uncomplicated

== ENCOUNTER → 2017-11-27 | Outpatient (CLI) | payer OTHER | END | disposition home or self-care (01) | LOC: RAD 14:02 | DX: M19.041 Primary osteoarthritis, right hand (principal) ==

== ENCOUNTER → 2017-12-10 | Outpatient (CLI) | payer OTHER ==
[~2017-12-10] MED LIST changes: +AUGMENTIN 875875 MG PO; +TRAZODONE50 MG PO
== END | disposition home or self-care (01) ==
LOC: RESCLI 03:07
DX: Z12.31 Encounter for screening mammogram for malignant neoplasm of breast (principal); E03.9 Hypothyroidism, unspecified; F41.9 Anxiety disorder, unspecified; J44.9 Chronic obstructive pulmonary disease, unspecified; I10 Essential (primary) hypertension; E11.42 Type 2 diabetes mellitus with diabetic polyneuropathy; E78.2 Mixed hyperlipidemia; E55.9 Vitamin D deficiency, unspecified; J30.2 Other seasonal allergic rhinitis; F32.9 Major depressive disorder, single episode, unspecified; K21.9 Gastro-esophageal reflux disease without esophagitis; E66.01 Morbid (severe) obesity due to excess calories; M54.42 Lumbago with sciatica, left side; E53.8 Deficiency of other specified B group vitamins; L40.9 Psoriasis, unspecified; I25.10 Atherosclerotic heart disease of native coronary artery without angina pectoris; M65.341 Trigger finger, right ring finger; M25.531 Pain in right wrist; G89.29 Other chronic pain; F17.210 Nicotine dependence, cigarettes, uncomplicated; M15.9 Polyosteoarthritis, unspecified; Z71.6 Tobacco abuse counseling; Z90.49 Acquired absence of other specified parts of digestive tract

== ENCOUNTER 2018-01-17 17:59 | Inpatient (IN) | payer OTHER ==
[~2018-01-17] VITALS: Ht 165.1 cm; Wt 103.9 kg
--- NOTE | ~2018-01-17 | EKG ---
[place], [place] ELECTROCARDIOGRAM REPORT NAME: MODESTA SHAH UNIT #: [id number] ROOM: [facility] DOCTOR: EVA FAGAN MD,RENAN BIRTHDATE: [birth year] DOS: 01/17/2018 Electrocardiogram done on 01/17/2018 at 6:38 p.m. The electrocardiogram shows normal sinus rhythm. Heart rate 74 beats per minute with a right bundle branch block. RENAN VELASQUEZ MD CM:EKGRPT:ELECTROCARDIOGRAM REPORT 0854 0903 RENAN FAGAN MD
[~2018-01-17 17:59] MED LIST changes: -AUGMENTIN 875875 MG PO; -TRAZODONE50 MG PO
[2018-01-17 18:06] VITALS: BP 117/94
[2018-01-17 18:42] LABS: BASO # 0.1 10*3/uL (0.0-0.1); BASO % 1.6 % (0.0-1.0); EOS # 0.5 10*3/uL (0.0-0.4); EOS % 5.4 % (1.0-4.0); HEMATOCRIT 51.4 % (37.0-47.0); HEMOGLOBIN 16.9 g/dl (12.0-16.0); LYMPH # 1.4 10*3/uL (1.3-4.4); LYMPH % 15.9 % (27.0-41.0); MEAN CELL VOLUME 88.2 fl (81.0-99.0); MEAN CORPUSCULAR HGB CONC 32.9 g/dl (33.0-37.0); MEAN PLATELET VOLUME 10.8 fl (9.6-12.3); MONO # 0.4 10*3/uL (0.1-1.0); MONO % 5.1 % (3.0-9.0); NEUT # 6.2 10*3/uL (2.3-7.9); NEUT % 71.8 % (47.0-73.0); PLATELET COUNT AUTOMATED 334 10*3/uL (130-400); RED BLOOD COUNT 5.83 10*6/uL (4.10-5.10); RED CELL DISTRI WIDTH 16.5 % (0-14.5); WHITE BLOOD COUNT 8.6 10*3/uL (4.8-10.8)
[2018-01-17 18:53] LABS: ACT PARTIAL THROMBO TIME 22.9 SECONDS (20.8-31.5); INTERNATIONAL NORM RATIO 0.9 (2.0-3.5)
[2018-01-17 18:55] LABS: ABG BASE EXCESS -1.4 mmol/L (-2.0-2.0); ABG HCO3 22.4 mmol/l (22-26); ABG O2 SATURATION 94.7 % (95-97); ARTERIAL BLOOD GAS PCO2 36.8 mmHg (35-45); ARTERIAL BLOOD GAS PH 7.401 (7.35-7.45)
[2018-01-17 18:58] LABS: BILIRUBIN NEGATIVE (NEGATIVE); BLOOD 1+ (NEGATIVE); CLARITY CLEAR (CLEAR); COLOR YELLOW (YELLOW); GLUCOSE NEGATIVE (NEGATIVE); KETONE NEGATIVE (NEGATIVE); LEUKO ESTERASE TRACE (NEGATIVE); NITRITE NEGATIVE (NEGATIVE); SPECIFIC GRAVITY 1.025 (1.005-1.030); UROBILINOGEN 0.2 E.U./dl (0.2-1.0)
[2018-01-17 19:00] LABS: ALBUMIN 3.7 gm/dl (3.1-4.5); ALKALINE PHOSPHATASE 124 U/L (45-117); BUN 16 mg/dl (7-24); CHLORIDE 107 mmol/L (98-107); CREATININE 1.11 mg/dL (0.55-1.02); SGOT/AST 8 IU/L (3-35); SGPT/ALT 19 U/L (12-78); SODIUM 140 mmol/L (136-145); TOTAL PROTEIN 7.4 gm/dL (6.4-8.2)
[2018-01-17 19:02] LABS: TROPONIN I < 0.015 ng/ml (<0.045)
[2018-01-17 19:17] LABS: BACTERIA 1+; EPITHELIAL CELLS TNTC
[2018-01-17 20:10] VITALS: BP 126/68
[2018-01-17 20:18] VITALS: BP 126/68
[2018-01-17] MEDS ORDERED: TRAZODONE50 MG PO (20:45)
[2018-01-18] VITALS: BP 120/82
[2018-01-18 06:44] LABS: BASO # 0.1 10*3/uL (0.0-0.1); BASO % 0.5 % (0.0-1.0); EOS % 0.2 % (1.0-4.0); HEMATOCRIT 50.2 % (37.0-47.0); HEMOGLOBIN 16.1 g/dl (12.0-16.0); LYMPH # 0.7 10*3/uL (1.3-4.4); LYMPH % 7.1 % (27.0-41.0); MEAN CELL VOLUME 89.8 fl (81.0-99.0); MEAN CORPUSCULAR HGB 28.8 pg (27.0-31.0); MEAN CORPUSCULAR HGB CONC 32.1 g/dl (33.0-37.0); MEAN PLATELET VOLUME 11.2 fl (9.6-12.3); MONO # 0.2 10*3/uL (0.1-1.0); MONO % 1.6 % (3.0-9.0); NEUT # 8.8 10*3/uL (2.3-7.9); PLATELET COUNT AUTOMATED 287 10*3/uL (130-400); RED BLOOD COUNT 5.59 10*6/uL (4.10-5.10); RED CELL DISTRI WIDTH 15.8 % (0-14.5); WHITE BLOOD COUNT 9.8 10*3/uL (4.8-10.8)
[2018-01-18 07:11] LABS: ACT PARTIAL THROMBO TIME 24.2 SECONDS (20.8-31.5)
[2018-01-18 07:13] LABS: ALBUMIN 3.4 gm/dl (3.1-4.5); BUN 18 mg/dl (7-24); CHLORIDE 108 mmol/L (98-107); POTASSIUM 3.9 mmol/L (3.5-5.1); SODIUM 140 mmol/L (136-145)
[2018-01-18 07:17] LABS: ALKALINE PHOSPHATASE 114 U/L (45-117); CREATININE 0.98 mg/dL (0.55-1.02); PHOSPHOROUS 4.3 mg/dL (2.5-4.9); SGOT/AST 6 IU/L (3-35); SGPT/ALT 16 U/L (12-78); TOTAL PROTEIN 6.7 gm/dL (6.4-8.2)
[2018-01-18 08:00] VITALS: BP 153/72
[2018-01-18 12:00] VITALS: BP 133/70
[2018-01-18 16:00] VITALS: BP 131/63
[2018-01-18 20:00] VITALS: BP 100/50
[2018-01-19] VITALS: BP 95/50
[2018-01-19 00:43] VITALS: BP 106/62
[2018-01-19 08:00] VITALS: BP 110/68; BP 133/69
[2018-01-19 12:00] VITALS: BP 150/84
[2018-01-19 16:00] VITALS: BP 173/72
[2018-01-19 20:00] VITALS: BP 140/88
[2018-01-20] VITALS (7 sets, daily range): BP systolic 113–160; BP diastolic 58–80
[2018-01-20 06:27] LABS: BASO # 0.1 10*3/uL (0.0-0.1); BASO % 1.2 % (0.0-1.0); EOS # 0.2 10*3/uL (0.0-0.4); EOS % 3.3 % (1.0-4.0); HEMATOCRIT 45.9 % (37.0-47.0); HEMOGLOBIN 14.4 g/dl (12.0-16.0); LYMPH # 1.5 10*3/uL (1.3-4.4); LYMPH % 21.2 % (27.0-41.0); MEAN CELL VOLUME 92.4 fl (81.0-99.0); MEAN CORPUSCULAR HGB CONC 31.4 g/dl (33.0-37.0); MEAN PLATELET VOLUME 11.1 fl (9.6-12.3); MONO # 0.4 10*3/uL (0.1-1.0); MONO % 5.5 % (3.0-9.0); NEUT # 4.9 10*3/uL (2.3-7.9); PLATELET COUNT AUTOMATED 274 10*3/uL (130-400); RED BLOOD COUNT 4.97 10*6/uL (4.10-5.10); RED CELL DISTRI WIDTH 16.1 % (0-14.5); WHITE BLOOD COUNT 7.3 10*3/uL (4.8-10.8)
[2018-01-20 06:44] LABS: BUN 22 mg/dl (7-24); CHLORIDE 108 mmol/L (98-107); CREATININE 0.88 mg/dL (0.55-1.02); POTASSIUM 4.5 mmol/L (3.5-5.1); SODIUM 141 mmol/L (136-145)
[2018-01-20] MEDS ORDERED: AUGMENTIN 875875 MG PO (15:16)
[2018-01-20] MEDS ORDERED: PREDNISONE10 MG PO (15:16)
[2018-01-20] MEDS ORDERED: NORCO 5-325 TA1 EACH PO (15:18)
[2018-03-02] MEDS ORDERED: NEURONTIN300 MG PO (14:45)
[2018-03-02] MEDS ORDERED: VITAMIN D50000 UNIT PO (14:45)
[2018-03-02] MEDS ORDERED: 24 HOUR ALLER15.8 ML NAS (14:47)
[2018-03-02] MEDS ORDERED: TRAZODONE100 MG PO (14:48)
[2018-03-02] MEDS ORDERED: PRAVACHOL40 MG PO (14:49)
[2018-03-02] MEDS ORDERED: Ipratropium Brom3 ML INH (14:49)
[2018-03-02] MEDS ORDERED: GEMFIBROZIL600 MG PO (14:50)
[2018-03-02] MEDS ORDERED: POTASSIUM CHLO20 ME3 PO (14:51)
[2018-03-02] MEDS ORDERED: IMDUR SA60 M1 PO (14:51)
[2018-03-02] MEDS ORDERED: SYNTHROID300 MCG PO (14:52)
[2018-03-02] MEDS ORDERED: VICTOZA 3-PAK6 MG/ML SC (14:53)
[2018-03-04] MEDS ORDERED: PREDNISONE10 MG PO (11:05)
[2018-03-11] MEDS ORDERED: LYRICA300 MG PO (11:40)
== END 2018-01-20 16:18 | disposition home or self-care (01) | DRG 682 ==
LOC: ED 17:59 → 5E 19:24 → EDHOLD 19:24 → 5E 19:55
PROVIDERS: Family Medicine; Nurse Practitioner Family
PROC: 0X9K3ZZ Drainage of Left Hand, Percutaneous Approach (ICD-10-PCS; principal; 2018-01-20)
DX: N17.0 Acute kidney failure with tubular necrosis (principal); J18.9 Pneumonia, unspecified organism; E11.40 Type 2 diabetes mellitus with diabetic neuropathy, unspecified; D75.1 Secondary polycythemia; E11.65 Type 2 diabetes mellitus with hyperglycemia; E87.8 Other disorders of electrolyte and fluid balance, not elsewhere classified; L02.414 Cutaneous abscess of left upper limb; J44.0 Chronic obstructive pulmonary disease with (acute) lower respiratory infection; J44.1 Chronic obstructive pulmonary disease with (acute) exacerbation; F32.9 Major depressive disorder, single episode, unspecified; R00.1 Bradycardia, unspecified; R74.8 Abnormal levels of other serum enzymes; I25.10 Atherosclerotic heart disease of native coronary artery without angina pectoris; I10 Essential (primary) hypertension; K21.9 Gastro-esophageal reflux disease without esophagitis; F41.9 Anxiety disorder, unspecified; E66.9 Obesity, unspecified; E55.9 Vitamin D deficiency, unspecified; G89.29 Other chronic pain; E03.9 Hypothyroidism, unspecified; Z71.6 Tobacco abuse counseling; Z72.0 Tobacco use; Z79.4 Long term (current) use of insulin; Z88.6 Allergy status to analgesic agent; Z91.041 Radiographic dye allergy status; Z79.899 Other long term (current) drug therapy; Z79.82 Long term (current) use of aspirin; Z90.49 Acquired absence of other specified parts of digestive tract; Z90.89 Acquired absence of other organs; Z90.710 Acquired absence of both cervix and uterus; Z98.61 Coronary angioplasty status; Z82.49 Family history of ischemic heart disease and other diseases of the circulatory system; Z83.3 Family history of diabetes mellitus; Z82.3 Family history of stroke; Z82.0 Family history of epilepsy and other diseases of the nervous system; Z84.89 Family history of other specified conditions; Z68.38 Body mass index [BMI] 38.0-38.9, adult

== ENCOUNTER → 2018-02-20 | Outpatient (CLI) | payer OTHER ==
[~2018-02-20] MED LIST changes: +AUGMENTIN 875875 MG PO; +TRAZODONE50 MG PO
--- NOTE | ~2018-02-20 | EKG ---
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 EPIPHANY DRAFT REPORT DUSTIN OSORIO MD [facility]
== END | disposition home or self-care (01) ==
LOC: RESCLI 08:03
DX: I45.10 Unspecified right bundle-branch block (principal); I10 Essential (primary) hypertension; E03.9 Hypothyroidism, unspecified; E11.42 Type 2 diabetes mellitus with diabetic polyneuropathy; E78.2 Mixed hyperlipidemia; E55.9 Vitamin D deficiency, unspecified; K21.9 Gastro-esophageal reflux disease without esophagitis; G89.29 Other chronic pain; J44.9 Chronic obstructive pulmonary disease, unspecified; I25.10 Atherosclerotic heart disease of native coronary artery without angina pectoris; F41.9 Anxiety disorder, unspecified; E66.01 Morbid (severe) obesity due to excess calories; J30.2 Other seasonal allergic rhinitis; F32.9 Major depressive disorder, single episode, unspecified; G47.00 Insomnia, unspecified; F17.210 Nicotine dependence, cigarettes, uncomplicated; M54.42 Lumbago with sciatica, left side; Z90.710 Acquired absence of both cervix and uterus; Z90.49 Acquired absence of other specified parts of digestive tract; Z79.4 Long term (current) use of insulin

== ENCOUNTER 2018-03-15 19:26 | Inpatient (IN) | payer OTHER, MEDICARE ==
[~2018-03-15] VITALS: Ht 165.1 cm; Wt 102.2 kg
--- NOTE | ~2018-03-15 | EKG ---
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
--- NOTE | ~2018-03-15 | DS ---
[place], [place] DISCHARGE SUMMARY NAME: MODESTA SHAH [facility] #: [id number] UNIT #: [id number] ROOM: 405 DOCTOR: CHAPO RAMIREZ MD BIRTHDATE: [birth year] DOS: 03/18/2018 DIAGNOSES: 1. Acute exacerbation of chronic obstructive pulmonary disease. 2. Moderate cigarette smoker. 3. Chronic respiratory failure. 4. History of obstructive sleep apnea. 5. Recent hospitalization pneumonia. CT scan of the chest this admission shows no pneumonia. WBC count is normalized. 6. Generalized anxiety disorder. 7. Coronary artery disease with history of stent placement. 8. Benign hypertension. 9. History of Graves' disease with radioactive iodine. 10. Hypothyroidism. 11. Chronic back pain. 12. Extended-spectrum beta-lactamase urinary tract infection. 13. Type 2 diabetes mellitus, poorly controlled. DISCHARGE MEDICATIONS: 1. Nitrofurantoin 100 mg q. 6. 2. BuSpar 7.5 twice a day. 3. Victoza increased to 1.8 daily. 4. Ceftin 250 twice a day 5 days. 5. Prednisone 5 b.i.d. for 5 days. 6. Aspirin 81 mg daily. 7. Tylenol 650 q. 6. 8. Effient 10 daily. 9. Coreg 6.25 twice a day. 10. Lisinopril 5 daily. 11. Advair 250 one puff twice a day. 12. Vitamin D 50,000 units once a week. 13. Fluticasone nasal spray 2 sprays each nostril daily. 14. Trazodone 100 at bedtime. 15. Breathing treatments of DuoNeb q. 4. 16. Pravachol 40 daily. 17. Potassium 20 daily. 18. Isosorbide 60 daily. 19. Levothyroxine 300 mcg daily. 20. Lyrica 300 mg daily. 21. Lantus 40 units at bedtime. HOSPITAL COURSE: This patient is 57 years old. The patient comes in with complaints of difficulty breathing, cough, increased sputum production. She was just admitted to the hospital recently and discharged. After being admitted, the patient was found to have an elevated white cell count and cough and shortness of breath. A CT scan of the chest was done because of the question of pneumonia. CT of the chest did not show any evidence of pneumonia. The patient was given IV antibiotics and IV steroids. IV antibiotics did help with the cough, but IV steroids made the blood sugars extremely elevated. [place], [place] DISCHARGE SUMMARY NAME: MODESTA SHAH [facility] #: [id number] UNIT #: [id number] ROOM: 405 DOCTOR: CHAPO RAMIREZ MD BIRTHDATE: [birth year] Lactic acid was normal, so IV steroids were quickly discontinued and the patient was given a low dose of prednisone p.o. and Pulmicort and the breathing treatments. Blood sugars were extremely high with evidence of mild diabetic ketoacidosis. I did not have to give this patient any IV insulin drip. The ketosis corrected and the blood sugars did come down. Further increases in Victoza and Lantus has been made. The patient has been encouraged to quit smoking and she has requested Chantix, which has been prescribed. The bronchospasm has improved, but not completely resolved and the patient will continue to receive antibiotics and steroids as an outpatient. The patient also did have ESBL UTI of 25,000 colonies, so we will need to follow contact isolation and antibiotics. The patient to follow with Dr. Chery as an outpatient. CHAPO RAMIREZ MD CM:PRECIOUS 6 0 CHAPO RAMIREZ MD 03/18/18918 interface
--- NOTE | ~2018-03-15 | WRIGHTHP ---
[place], [place] PATIENT HISTORY AND PHYSICAL EXAM NAME: MODESTA SHAH [facility] #: [id number] UNIT #: [id number] ROOM: 405 DOCTOR: CHAPO RAMIREZ MD BIRTHDATE: [birth year] DOS: 03/15/2018 HISTORY OF PRESENT ILLNESS: The patient is 57-year-old, not known to me. The patient comes in with complaints of difficulty breathing. She was admitted to the hospital on the with pneumonia and was discharged on the . The patient states that she felt good at the time of discharge she was not prescribed any antibiotics or prednisone when she left. Two days later, she got sicker and so she decided to come into the Emergency Room. She denies having any fever, any chills, any chest pains, any palpitations, does not have any abdominal pain, nausea, any emesis, does not have any fever or chills. The patient continues to smoke and she had started smoking when she went home. PAST MEDICAL HISTORY: Significant for: 1. Recent hospitalization for pneumonia. 2. Coronary artery disease with history of stent placement 2 years ago. 3. Graves disease at the age of 16 with hypothyroidism. 4. Moderate cigarette smoker. 5. Benign hypertension. 6. Type 2 diabetes mellitus, poorly controlled. 7. COPD. 8. Chronic back pain. MEDICATIONS: She is on Advair 250 twice a day, breathing treatments of DuoNeb q. 4 hours, fluticasone 1 spray to each nostril daily, Tylenol 650 q. 6 hours p.r.n., aspirin 81 daily, prasugrel 10 mg daily, lisinopril 5 daily, Coreg 6.25 twice a day, vitamin D 50,000 on Sundays, isosorbide 60 daily, levothyroxine 300 mcg daily, potassium 20 daily, Pravachol 40 daily, Lyrica 300 b.i.d., trazodone 100 at bedtime, Lantus 30 at bedtime, Victoza 0.6 daily. She also takes Lopid 600 b.i.d. and Neurontin 300 b.i.d. SOCIAL HISTORY: Smoker of about less than 1 pack of cigarettes a day. Denies using any alcohol. Lives at home. PHYSICAL EXAMINATION: GENERAL: She is awake and alert and oriented, in mild respiratory distress, exophthalmos noted. VITAL SIGNS: Blood pressure is 106/48, pulse of 85, respirations 16, temperature 98.9. LUNGS: Diminished breath sounds, a few scattered rhonchi and wheezes. HEART: Regular. ABDOMEN: Obese. EXTREMITIES: Without any edema. LABORATORY DATA: Chest x-ray at the time of admission showed COPD. Urinalysis: 3+ glucose, 1+ bilirubin, 2+ ketones. Comprehensive: Glucose 276, BUN 18, creatinine 0.73. Electrolytes normal. Bicarbonate 27. ProBNP 134. Ketone 1:2 dilution. WBC count is 14.8, hemoglobin 16.4, hematocrit 48.2. Lactic acid 1.3. ASSESSMENT AND PLAN: [place], [place] PATIENT HISTORY AND PHYSICAL EXAM [facility]: [facility] #[facility] [id number] UNIT #: [id number] ROOM: 405 DOCTOR: CHAPO RAMIREZ MD BIRTHDATE: [birth year] 1. The patient comes in with complaints of shortness of breath with acute exacerbation of chronic obstructive pulmonary disease, placed on breathing treatments, Pulmicort and low dose of steroids. 2. Type 2 diabetes mellitus, poorly controlled with steroid-induced hyperglycemia, some mild ketoacidosis. The patient is placed on IV fluids. Repeat ketone level coverage scale has been ordered. 3. Recent hospitalization for pneumonia. Elevated white cell count could be steroid effect. CT of the chest will be done to see whether there is any pneumonia in this present admission. 4. Coronary artery disease. Continue medication. 5. Polypharmacy noted. Readjust home medications. Discontinue Lopid and Neurontin since she is already on statin and Lyrica. 6. Moderate cigarette smoker. Advised against smoking. CHAPO RAMIREZ MD CM:HISPHYS:PATIENT HISTORY AND PHYSICAL EXAMINATION 0759 5 CHAPO RAMIREZ MD 03/16/18 09 interface
--- NOTE | ~2018-03-15 | PR ---
[place], [place] PROGRESS NOTE [id number] UNIT #: [id number] ROOM: 405 DOCTOR: CHAPO RAMIREZ MD BIRTHDATE: [birth year] DOS: 03/18/2018 SUBJECTIVE: The patient is about the same, does not have any new complaints. She is starting to feel better and would like Chantix to stop smoking. PHYSICAL EXAMINATION: VITAL SIGNS: Blood pressure is 128/58, pulse of 72, respirations 18, temperature 97.8. LUNGS: Diminished breath sounds, clear, a few scattered rhonchi is still heard, but overall is much improved. HEART: Regular. ABDOMEN: Obese. EXTREMITIES: Without any edema. LABORATORY DATA: Blood culture shows no bacterial growth. Legionella, urinary antigen and Strep. pneumonia antigen are both negative. Urine culture shows 25,000 E. coli, which is ESBL sensitive to Macrodantin. ASSESSMENT AND PLAN: 1. Acute exacerbation of chronic obstructive pulmonary disease, stable and improving. 2. Moderate cigarette smoker, add Chantix. 3. Recent pneumonia, which is completely cleared on the CT scan. 4. Coronary artery disease, stable without any complaints of chest pain. 5. Type 2 diabetes mellitus. Blood sugars in the 300s. Further adjustment and Victoza was made. She is advised to follow up with PCP for more adjustments in medications. The plan is that she is stable and can be discharged today, but she has significant chronic obstructive pulmonary disease and may require further admissions in the hospital in the future. CHAPO RAMIREZ MD CM:PNTRANS [id number] CHAPO RAMIREZ MD 03/18/18 0923 interface
--- NOTE | ~2018-03-15 | PR ---
[place], [place] PROGRESS NOTE [id number] #: [id number] ROOM: 405 DOCTOR: CHAPO RAMIREZ MD BIRTHDATE: [birth year] DOS: SUBJECTIVE: The patient is feeling better, does not have any new complaints. OBJECTIVE: VITAL SIGNS: Blood pressure is 116/62, pulse of 63, respirations 17, temperature 98.1. LUNGS: Diminished breath sounds, scattered rhonchi bilaterally. HEART: Regular. ABDOMEN: Obese, soft. EXTREMITIES: Without any edema. ASSESSMENT AND PLAN: 1. Acute exacerbation of chronic obstructive pulmonary disease, on Pulmicort breathing treatments, IV steroids to discontinue. 2. Type 2 diabetes mellitus with mild ketoacidosis, which is corrected. Blood sugars are in the high 200s further adjust medications. 3. Coronary artery disease with no complaints of chest pain. The CT showing no evidence of pneumonia. Continue current care, plan to discharge in the morning once the bronchospasm has resolved. CHAPO RAMIREZ MD CM:PNTRANS [id number] CHAPO RAMIREZ MD 03/17/18 0942 interface
[~2018-03-15 19:26] MED LIST changes: +24 HOUR ALLER15.8 ML NAS; +Ipratropium Brom3 ML INH; +Lantus SC; +SYNTHROID300 MCG PO; +TRAZODONE100 MG PO; +VICTOZA 3-PAK6 MG/ML SC; +VITAMIN D50000 UNIT PO
[2018-03-15 19:28] VITALS: BP 126/69
[2018-03-15 20:00] LABS: BASO # 0.1 10*3/uL (0.0-0.1); BASO % 0.7 % (0.0-1.0); EOS # 0.2 10*3/uL (0.0-0.4); EOS % 1.5 % (1.0-4.0); HEMATOCRIT 48.2 % (37.0-47.0); HEMOGLOBIN 16.4 g/dl (12.0-16.0); LYMPH # 1.4 10*3/uL (1.3-4.4); LYMPH % 9.1 % (27.0-41.0); MEAN CELL VOLUME 90.6 fl (81.0-99.0); MEAN CORPUSCULAR HGB 30.8 pg (27.0-31.0); MEAN PLATELET VOLUME 11.2 fl (9.6-12.3); MONO # 0.7 10*3/uL (0.1-1.0); MONO % 4.8 % (3.0-9.0); NEUT # 12.3 10*3/uL (2.3-7.9); NEUT % 83.4 % (47.0-73.0); PLATELET COUNT AUTOMATED 263 10*3/uL (130-400); RED BLOOD COUNT 5.32 10*6/uL (4.10-5.10); RED CELL DISTRI WIDTH 15.9 % (0-14.5); WHITE BLOOD COUNT 14.8 10*3/uL (4.8-10.8)
[2018-03-15 20:04] VITALS: BP 119/71
[2018-03-15 20:12] LABS: INTERNATIONAL NORM RATIO 0.9 (2.0-3.5)
[2018-03-15 20:18] LABS: ALBUMIN 3.6 gm/dl (3.1-4.5); ALKALINE PHOSPHATASE 122 U/L (45-117); BUN 18 mg/dl (7-24); CHLORIDE 103 mmol/L (98-107); CREATININE 0.73 mg/dL (0.55-1.02); POTASSIUM 3.7 mmol/L (3.5-5.1); SGOT/AST 17 IU/L (3-35); SGPT/ALT 35 U/L (12-78); SODIUM 138 mmol/L (136-145); TOTAL PROTEIN 7.6 gm/dL (6.4-8.2)
[2018-03-15 20:19] LABS: TROPONIN I < 0.015 ng/ml (<0.045)
[2018-03-15 20:45] VITALS: BP 116/54
[2018-03-15 21:01] LABS: BILIRUBIN 1+ (NEGATIVE); BLOOD NEGATIVE (NEGATIVE); CLARITY CLEAR (CLEAR); COLOR YELLOW (YELLOW); GLUCOSE 3+ (NEGATIVE); KETONE 2+ (NEGATIVE); LEUKO ESTERASE NEGATIVE (NEGATIVE); NITRITE NEGATIVE (NEGATIVE); PH 5.5 (5.0-9.0); SPECIFIC GRAVITY 1.025 (1.005-1.030); UROBILINOGEN 0.2 E.U./dl (0.2-1.0)
[2018-03-15 21:13] LABS: BACTERIA TRACE; EPITHELIAL CELLS 0-2; YEAST 1+
[2018-03-15 21:30] VITALS: BP 144/64
[2018-03-16] VITALS: BP 106/48
[2018-03-16 08:00] VITALS: BP 116/77; BP 155/89
[2018-03-16 12:00] VITALS: BP 124/67
[2018-03-16 16:00] VITALS: BP 106/58
[2018-03-16 20:00] VITALS: BP 106/52
[2018-03-17] VITALS: BP 116/62
[2018-03-17 06:09] LABS: BASO # 0.1 10*3/uL (0.0-0.1); BASO % 0.8 % (0.0-1.0); EOS # 0.3 10*3/uL (0.0-0.4); EOS % 3.5 % (1.0-4.0); LYMPH # 1.5 10*3/uL (1.3-4.4); LYMPH % 16.6 % (27.0-41.0); MEAN CORPUSCULAR HGB 30.3 pg (27.0-31.0); MEAN PLATELET VOLUME 11.3 fl (9.6-12.3); MONO # 0.4 10*3/uL (0.1-1.0); NEUT # 6.5 10*3/uL (2.3-7.9); NEUT % 73.4 % (47.0-73.0); PLATELET COUNT AUTOMATED 188 10*3/uL (130-400); RED BLOOD COUNT 4.23 10*6/uL (4.10-5.10); RED CELL DISTRI WIDTH 16.1 % (0-14.5); WHITE BLOOD COUNT 8.8 10*3/uL (4.8-10.8)
[2018-03-17 06:11] LABS: HEMOGLOBIN 12.8 g/dl (12.0-16.0); MEAN CELL VOLUME 94.6 fl (81.0-99.0)
[2018-03-17 06:28] LABS: BUN 19 mg/dl (7-24); CHLORIDE 107 mmol/L (98-107); CREATININE 0.58 mg/dL (0.55-1.02); POTASSIUM 3.8 mmol/L (3.5-5.1); SODIUM 139 mmol/L (136-145)
[2018-03-17 08:00] VITALS: BP 122/66
[2018-03-17 12:00] VITALS: BP 128/67
[2018-03-17 16:00] VITALS: BP 103/52
[2018-03-17 20:00] VITALS: BP 128/54
[2018-03-18] VITALS: BP 128/58
[2018-03-18] MEDS ORDERED: Lantus SC (08:00)
[2018-03-18] MEDS ORDERED: NITROFURANTOIN100 M8 PO (08:00)
[2018-03-18] MEDS ORDERED: BUSPAR15 MG PO (08:00)
[2018-03-18] MEDS ORDERED: CEFUROXIME AXE250 MG PO (08:00)
[2018-03-18] MEDS ORDERED: PREDNISONE5 MG PO (08:00)
[2018-03-18] MEDS ORDERED: VICTOZA 3-PAK6 MG/ML SC (08:00)
[2018-03-18] MEDS ORDERED: CHANTIX1 M1 PO (08:05)
== END 2018-03-18 09:21 | disposition home or self-care (01) | DRG 190 ==
LOC: ED 19:26 → EDHOLD 21:13 → 4E 21:13
PROVIDERS: Emergency Medicine; Internal Medicine
DX: J44.1 Chronic obstructive pulmonary disease with (acute) exacerbation (principal); E11.10 Type 2 diabetes mellitus with ketoacidosis without coma; J96.10 Chronic respiratory failure, unspecified whether with hypoxia or hypercapnia; N39.0 Urinary tract infection, site not specified; I25.10 Atherosclerotic heart disease of native coronary artery without angina pectoris; F17.210 Nicotine dependence, cigarettes, uncomplicated; G47.33 Obstructive sleep apnea (adult) (pediatric); Z87.01 Personal history of pneumonia (recurrent); F41.1 Generalized anxiety disorder; E05.00 Thyrotoxicosis with diffuse goiter without thyrotoxic crisis or storm; E03.9 Hypothyroidism, unspecified; G89.29 Other chronic pain; M54.9 Dorsalgia, unspecified; Z16.12 Extended spectrum beta lactamase (ESBL) resistance; I50.9 Heart failure, unspecified; I11.0 Hypertensive heart disease with heart failure; F32.9 Major depressive disorder, single episode, unspecified; K21.9 Gastro-esophageal reflux disease without esophagitis; E66.9 Obesity, unspecified; T38.0X5A Adverse effect of glucocorticoids and synthetic analogues, initial encounter; Z95.5 Presence of coronary angioplasty implant and graft; Z71.6 Tobacco abuse counseling; Z99.81 Dependence on supplemental oxygen; Z88.6 Allergy status to analgesic agent; Z91.041 Radiographic dye allergy status; Z79.899 Other long term (current) drug therapy; Z79.4 Long term (current) use of insulin; Z79.82 Long term (current) use of aspirin; Z90.49 Acquired absence of other specified parts of digestive tract; Z90.710 Acquired absence of both cervix and uterus; Z90.89 Acquired absence of other organs; Z82.49 Family history of ischemic heart disease and other diseases of the circulatory system; Z83.3 Family history of diabetes mellitus; Z84.89 Family history of other specified conditions; Z82.0 Family history of epilepsy and other diseases of the nervous system; Y92.89 Other specified places as the place of occurrence of the external cause; Z68.37 Body mass index [BMI] 37.0-37.9, adult

== ENCOUNTER 2018-06-22 11:29 | Emergency (ER) | payer OTHER ==
[~2018-06-22] VITALS: Ht 165.1 cm; Wt 105.2 kg
--- NOTE | ~2018-06-22 | EKG ---
[place], [place] ELECTROCARDIOGRAM REPORT NAME: MODESTA SHAH UNIT #: [id number] ROOM: DOCTOR: EPIPHANY DRAFT REPORT BIRTHDATE: [birth year] [facility] Test Date: 2018-06-22 Test Time: 11:34:01 Pat Name: MODESTA SHAH Department: Room: Gender: F Autism Specialist: Steff Gibbons : 1960 Requested By: ARABELLA DENTON Order Number: [id number] Reading MD: Cristian Ugarte MD Measurements Intervals [place] Rate: 70 P: 153 TX: 186 QRS: 125 QRSD: 151 T: 139 QT: 447 QTc: 483 Interpretive Statements Sinus or ectopic atrial rhythm Probable left atrial enlargement Right bundle branch block Compared to ECG 03/15/2018 19:59:37 Ectopic atrial rhythm now present Sinus rhythm no longer present ST (T wave) deviation no longer present Electronically Signed On 06-23-2018 4:20:17 PST by Cristian Ugarte MD CM:EKGRPT:ELECTROCARDIOGRAM REPORT 1134 0420 ARABELLA RAI DRAFT REPORT ARABELLA DENTON DO
--- NOTE | ~2018-06-22 | EKG ---
[place], [place] ELECTROCARDIOGRAM REPORT NAME: MODESTA SHAH UNIT #: [id number] ROOM: DOCTOR: EPIPHANY DRAFT REPORT BIRTHDATE: [birth year] [facility] Test Date: 2018-06-22 Test Time: 14:40:43 Pat Name: MODESTA SHAH Department: Room: Gender: F Car Repair Supervisor: Steff Gibbons : 1960 Requested By: ARABELLA DENTON Order Number: [id number] Reading MD: Cristian Ugarte MD Measurements Intervals [place] Rate: 61 P: 69 SC: 198 QRS: 49 QRSD: 148 T: 44 QT: 482 QTc: 486 Interpretive Statements Sinus rhythm Right bundle branch block Compared to ECG 03/15/2018 19:59:37 ST (T wave) deviation no longer present Electronically Signed On 06-23-2018 4:20:41 PST by Cristian Ugarte MD CM:EKGRPT:ELECTROCARDIOGRAM REPORT 1440 0420 ARABELLA RAI DRAFT REPORT ARABELLA DENTON DO
[~2018-06-22 11:29] MED LIST changes: +BUSPAR15 MG PO; +CEFUROXIME AXE250 MG PO; +CHANTIX1 M1 PO; +NITROFURANTOIN100 M8 PO; +PREDNISONE5 MG PO
[2018-06-22 11:51] LABS: BASO # 0.1 10*3/uL (0.0-0.1); BASO % 1.7 % (0.0-1.0); EOS # 0.3 10*3/uL (0.0-0.4); EOS % 3.4 % (1.0-4.0); HEMATOCRIT 38.3 % (37.0-47.0); HEMOGLOBIN 12.8 g/dl (12.0-16.0); LYMPH # 1.6 10*3/uL (1.3-4.4); LYMPH % 20.3 % (27.0-41.0); MEAN CELL VOLUME 93.2 fl (81.0-99.0); MEAN CORPUSCULAR HGB 31.1 pg (27.0-31.0); MEAN CORPUSCULAR HGB CONC 33.4 g/dl (33.0-37.0); MEAN PLATELET VOLUME 10.7 fl (9.6-12.3); MONO # 0.5 10*3/uL (0.1-1.0); MONO % 6.4 % (3.0-9.0); NEUT # 5.2 10*3/uL (2.3-7.9); NEUT % 67.9 % (47.0-73.0); PLATELET COUNT AUTOMATED 241 10*3/uL (130-400); RED BLOOD COUNT 4.11 10*6/uL (4.10-5.10); RED CELL DISTRI WIDTH 15.2 % (0-14.5); WHITE BLOOD COUNT 7.7 10*3/uL (4.8-10.8)
[2018-06-22 12:00] LABS: ACT PARTIAL THROMBO TIME 23.6 SECONDS (20.8-31.5); INTERNATIONAL NORM RATIO 0.9 (2.0-3.5)
[2018-06-22 12:08] LABS: ALBUMIN 3.5 gm/dl (3.1-4.5); ALKALINE PHOSPHATASE 101 U/L (45-117); BUN 17 mg/dl (7-24); CHLORIDE 109 mmol/L (98-107); CREATININE 0.93 mg/dL (0.55-1.02); POTASSIUM 4.3 mmol/L (3.5-5.1); SGOT/AST 15 IU/L (3-35); SGPT/ALT 23 U/L (12-78); SODIUM 140 mmol/L (136-145); TOTAL PROTEIN 7.1 gm/dL (6.4-8.2)
[2018-06-22 12:10] LABS: TROPONIN I < 0.015 ng/ml (<0.045)
[2018-06-22 15:00] VITALS: BP 110/52
== END 2018-06-22 15:26 | disposition short-term general hospital (02) ==
LOC: ED 11:29
PROVIDERS: Emergency Medicine
DX: R07.9 Chest pain, unspecified (principal); I25.2 Old myocardial infarction; I25.10 Atherosclerotic heart disease of native coronary artery without angina pectoris; J44.9 Chronic obstructive pulmonary disease, unspecified; K21.9 Gastro-esophageal reflux disease without esophagitis; I10 Essential (primary) hypertension; G89.29 Other chronic pain; E03.9 Hypothyroidism, unspecified; E11.9 Type 2 diabetes mellitus without complications; F17.200 Nicotine dependence, unspecified, uncomplicated; Z91.041 Radiographic dye allergy status; Z88.5 Allergy status to narcotic agent; Z79.899 Other long term (current) drug therapy; Z79.4 Long term (current) use of insulin; Z79.2 Long term (current) use of antibiotics; Z90.49 Acquired absence of other specified parts of digestive tract; Z90.710 Acquired absence of both cervix and uterus

== ENCOUNTER → 2018-08-05 | Outpatient (CLI) | payer OTHER | END | disposition home or self-care (01) | LOC: RAD 10:42 | DX: I51.7 Cardiomegaly (principal); R05 Cough; J44.9 Chronic obstructive pulmonary disease, unspecified; I10 Essential (primary) hypertension; E11.9 Type 2 diabetes mellitus without complications; F17.210 Nicotine dependence, cigarettes, uncomplicated; Z95.5 Presence of coronary angioplasty implant and graft ==

== ENCOUNTER → 2018-08-20 | Outpatient (CLI) | payer OTHER ==
[2018-08-20 16:56] LABS: BASO # 0.1 10*3/uL (0.0-0.1); BASO % 0.9 % (0.0-1.0); EOS # 0.3 10*3/uL (0.0-0.4); EOS % 2.7 % (1.0-4.0); HEMATOCRIT 43.1 % (37.0-47.0); HEMOGLOBIN 14.5 g/dl (12.0-16.0); LYMPH # 1.6 10*3/uL (1.3-4.4); LYMPH % 15.9 % (27.0-41.0); MEAN CELL VOLUME 91.9 fl (81.0-99.0); MEAN CORPUSCULAR HGB 30.9 pg (27.0-31.0); MEAN CORPUSCULAR HGB CONC 33.6 g/dl (33.0-37.0); MEAN PLATELET VOLUME 10.5 fl (9.6-12.3); MONO # 0.6 10*3/uL (0.1-1.0); MONO % 5.5 % (3.0-9.0); NEUT # 7.7 10*3/uL (2.3-7.9); NEUT % 74.6 % (47.0-73.0); PLATELET COUNT AUTOMATED 346 10*3/uL (130-400); RED BLOOD COUNT 4.69 10*6/uL (4.10-5.10); RED CELL DISTRI WIDTH 14.6 % (0-14.5); WHITE BLOOD COUNT 10.3 10*3/uL (4.8-10.8)
== END | disposition home or self-care (01) ==
LOC: LAB 16:16
PROVIDERS: Internal Medicine Critical Care Medicine
DX: Z79.899 Other long term (current) drug therapy (principal)

== ENCOUNTER 2019-03-16 13:10 | Inpatient (IN) | payer OTHER ==
[~2019-03-16] VITALS: Ht 165.1 cm; Wt 105.4 kg
[~2019-03-16 13:10] MED LIST changes: +ADVAIR HFA 230-12 GM INH; +AUGMENTIN 875-875 MG PO; +CIPROFLOXACIN 110 ML OPH; +CYCLOBENZAPRINE10 MG PO; +ISOSORBIDE MON120 MG PO; +METFORMIN HYD1000 MG PO; +NEURONTIN600 MG PO; +PATADAY 2.5 ML2.5 M1 OU; +PROVENTIL HFA6.7 GM INH; +RANEXA500 M1 PO; +TRESIBA100 UNIT/1 SC
[2019-03-16 13:12] VITALS: BP 114/48
[2019-03-16 13:41] LABS: ACT PARTIAL THROMBO TIME 28.9 SECONDS (20.0-32.1); INTERNATIONAL NORM RATIO 0.9 (2.0-3.5)
[2019-03-16 13:47] LABS: ALBUMIN 3.6 gm/dl (3.1-4.5); ALKALINE PHOSPHATASE 156 U/L (45-117); BUN 25 mg/dl (7-24); CHLORIDE 106 mmol/L (98-107); CREATININE 1.02 mg/dL (0.55-1.02); POTASSIUM 4.3 mmol/L (3.5-5.1); SGOT/AST 12 IU/L (3-35); SGPT/ALT 12 U/L (12-78); SODIUM 138 mmol/L (136-145); TOTAL PROTEIN 7.6 gm/dL (6.4-8.2)
[2019-03-16 13:48] LABS: TROPONIN I < 0.015 ng/ml (<0.045)
[2019-03-16 14:14] LABS: BASO % 0.2 % (0.0-1.0); HEMATOCRIT 41.6 % (37.0-47.0); HEMOGLOBIN 13.8 g/dl (12.0-16.0); LYMPH # 1.4 10*3/uL (1.3-4.4); LYMPH % 13.1 % (27.0-41.0); MEAN CELL VOLUME 92.2 fl (81.0-99.0); MEAN CORPUSCULAR HGB 30.6 pg (27.0-31.0); MEAN CORPUSCULAR HGB CONC 33.2 g/dl (33.0-37.0); MONO # 0.6 10*3/uL (0.1-1.0); MONO % 5.6 % (3.0-9.0); NEUT # 8.3 10*3/uL (2.3-7.9); NEUT % 80.7 % (47.0-73.0); PLATELET COUNT AUTOMATED 313 10*3/uL (130-400); RED BLOOD COUNT 4.51 10*6/uL (4.10-5.10); RED CELL DISTRI WIDTH 15.7 % (0-14.5); WHITE BLOOD COUNT 10.3 10*3/uL (4.8-10.8)
--- NOTE | 2019-03-16 14:29 | NUR ---
PT NOW MENTIONS CHRONIC BACK PAIN AND A NEW HEADACHE TODAY THAT SHE WOULD LIKE MEDICATED FOR, PROVIDER MADE AWARE.
[2019-03-16 15:00] VITALS: BP 117/73
--- NOTE | 2019-03-16 15:10 | NUR ---
NURSE REPORT TO PAULINO FOR COMNTINUATION OF CARE.
--- NOTE | 2019-03-16 17:49 | NUR ---
Time: 1744 A 58 year old FEMALE admitted to 4E under services of DR. SAMIR HERRING,FAUSTINO Hamilton. Pt. arrived via stretcher from ER. Chief complaint: INCREASING SHORTNESS OF BREATH.. SAY DE LOS SANTOS
[2019-03-16 18:00] VITALS: BP 105/63
[2019-03-16] MEDS ORDERED: COREG3.125 MG PO (18:20)
[2019-03-16 20:00] VITALS: BP 106/60
[2019-03-17] VITALS: BP 123/70
--- NOTE | 2019-03-17 03:25 | NUR ---
PATIENT SLEEPING. BIPAP ON. CALL LIGHT WITHIN REACH, WILL MONITOR
[2019-03-17 08:00] VITALS: BP 102/66
--- NOTE | 2019-03-17 09:00 | NUR ---
Ship Fastener in to talk to patient. Patient states lives at home with 2 darline friends living in the upstairs. There are 13-14 steps in the home. Physician: Dr. Chaparro Chery [facility]acy: [facility] Home health services: [facility] every other day Patient's level of ADLs: MINIMAL ASSIST Patient has working utilities: yes DME: cane, O2 @ 4L nc, portable O2 tanks, nebulizer, O2 supplier [facility] Follow-up physician's appointment after d/c: she prefers to make her own follow up appt after discharge Does patient want to access PORTAL?: no Discharge plan discussed with patient. She lives at home with 2 darline friends living in her upstairs. She states she is independent in her ADLs and ambulates with a cane. Discussed home health care services and she currently has [facility] every other day to help her clean and shower. She denies any other home needs at this time. When medically stable she will be discharged to home. Her friend, Vishnu, will transport on discharge. JOYA YIN
[2019-03-17 12:00] VITALS: BP 101/50
--- NOTE | 2019-03-17 14:00 | NUR ---
C/O anxiety, tearful, states she has been anxious most of the day. Spoke with Dr. Dumont regarding this and pt request for nicoderm patch. New orders received.
--- NOTE | 2019-03-17 15:30 | NUR ---
States that buspar helped with anxiety.
[2019-03-17 16:00] VITALS: BP 100/50
[2019-03-17 20:00] VITALS: BP 100/46
[2019-03-18] VITALS: BP 116/72
--- NOTE | 2019-03-18 01:41 | NUR ---
24 HR chart check completed.
[2019-03-18 08:00] VITALS: BP 112/64
--- NOTE | 2019-03-18 09:00 | NUR ---
Emergency Care Tech in to see patient. No new needs or request at this time. She denies any other home needs. When medically stable she will be discharged to home with the resumption of her [facility] every other day.
[2019-03-18 12:00] VITALS: BP 100/56
[2019-03-18 16:00] VITALS: BP 103/45
--- NOTE | 2019-03-18 18:05 | NUR ---
PATIENT STATES IF SHE IS DICHARGED TOMORROW HAS TO BE BEFOR 9AM BECAUSE OTHERWISE SHE WILL HAVE NO RIDE HOME.
--- NOTE | 2019-03-18 19:30 | NUR ---
24 HOUR CHART CHECK COMPLETE.
[2019-03-18 20:00] VITALS: BP 145/74
--- NOTE | 2019-03-18 20:34 | NUR ---
PT COMPLAINS OF COUGH. CALLED DR RAMIRZE TELEPHONE ORDER FOR MUCINEX 600 BID TAKEN.
[2019-03-19] VITALS: BP 116/54
[2019-03-19 08:00] VITALS: BP 126/44
--- NOTE | 2019-03-19 09:00 | NUR ---
Homeopathic Doctor in to see patient. She is sitting on the edge of her bed without distress noted. No new needs or request at this time. She states she has everything she needs at home. Discussed home health care services and she states she has [facility] every other day currently. When medically stable she will be discharged to home with the resumption of her [facility].
--- NOTE | 2019-03-19 11:20 | NUR ---
PER DR. SAMIR CLEMENS TO CALL IN A PRESCRIPTION FOR MUCINEX 1200MG BID FOR PATIENT.
[2019-03-19] MEDS ORDERED: MEDROL DOSEPAK4 MG PO (11:29)
[2019-03-19] MEDS ORDERED: AUGMENTIN 875-875 MG PO (11:29)
[2019-03-19] MEDS ORDERED: MUCINEX DM ER1 EACH PO (12:09)
--- NOTE | 2019-03-19 13:40 | NUR ---
Discharge instructions reviewed with patient/family. Patient receptive and verbalizes understanding. Follow-up care arranged. Written instructions given to patient/family. IV REMOVED, MONITOR REMOVED. PATIENT WHEELED OUT VIA WHEELCHAIR AT THIS TIME. NOVA SANTANA
== END 2019-03-19 13:39 | disposition home or self-care (01) | DRG 189 ==
LOC: ED 13:10 → EDHOLD 16:18 → 4E 16:18
PROVIDERS: Emergency Medicine; ADMIT Internal Medicine
PROC: 5A09357 Assistance with Respiratory Ventilation, Less than 24 Consecutive Hours, Continuous Positive Airway Pressure (ICD-10-PCS; principal; 2019-03-19)
DX: J96.20 Acute and chronic respiratory failure, unspecified whether with hypoxia or hypercapnia (principal); J44.1 Chronic obstructive pulmonary disease with (acute) exacerbation; E11.9 Type 2 diabetes mellitus without complications; G89.29 Other chronic pain; M54.9 Dorsalgia, unspecified; F41.9 Anxiety disorder, unspecified; I25.10 Atherosclerotic heart disease of native coronary artery without angina pectoris; I50.9 Heart failure, unspecified; F32.9 Major depressive disorder, single episode, unspecified; K21.9 Gastro-esophageal reflux disease without esophagitis; I11.0 Hypertensive heart disease with heart failure; E03.9 Hypothyroidism, unspecified; F17.210 Nicotine dependence, cigarettes, uncomplicated; E78.2 Mixed hyperlipidemia; R62.7 Adult failure to thrive; E05.00 Thyrotoxicosis with diffuse goiter without thyrotoxic crisis or storm; K21.0 Gastro-esophageal reflux disease with esophagitis; E66.01 Morbid (severe) obesity due to excess calories; G47.30 Sleep apnea, unspecified; F51.01 Primary insomnia; Z99.81 Dependence on supplemental oxygen; Z91.041 Radiographic dye allergy status; Z79.899 Other long term (current) drug therapy; Z79.82 Long term (current) use of aspirin; Z79.84 Long term (current) use of oral hypoglycemic drugs; Z79.4 Long term (current) use of insulin; Z87.01 Personal history of pneumonia (recurrent); Z90.49 Acquired absence of other specified parts of digestive tract; Z90.89 Acquired absence of other organs; Z90.710 Acquired absence of both cervix and uterus; Z95.5 Presence of coronary angioplasty implant and graft; Z82.49 Family history of ischemic heart disease and other diseases of the circulatory system; Z82.3 Family history of stroke; Z83.3 Family history of diabetes mellitus; Z82.0 Family history of epilepsy and other diseases of the nervous system; Z84.89 Family history of other specified conditions; Z68.38 Body mass index [BMI] 38.0-38.9, adult

== ENCOUNTER 2019-04-09 16:41 | Inpatient (IN) | payer OTHER ==
[~2019-04-09] VITALS: Ht 165.1 cm; Wt 108.9 kg
--- NOTE | ~2019-04-09 | CON ---
[place], [place] REPORT OF CONSULTATION NAME: MODESTA SHAH UNIT #: [id number] ROOM: 508 [facility] BIRTH[facility] [birth year] DOS: 04/10/2019 HISTORY OF PRESENT ILLNESS: I examined the patient independently, reviewed, and discussed with the staff, no further angina. The patient's optimal medication are core measures for coronary artery disease and recent coronary intervention with a stent in 10/2018. The patient is already on Effient, nitrates, beta blocking agent, and statin. PHYSICAL EXAMINATION: VITAL SIGNS: Stable. Hemodynamically stable. ASSESSMENT AND PLAN: We will continue current medication. No further intervention at this time and I will dictate the complete consultation. If any further problem, please be in touch with us. DUSTIN OSORIO MD CM:CONSTR:REPORT OF CONSULTATION 1707 04/11/19 0031 interface
--- NOTE | ~2019-04-09 | CON ---
[place], [place] REPORT OF CONSULTATION NAME: MODESTA SHAH Anish UNIT #: [id number] ROOM: 508 DOCTOR: EVA FAGAN MDRENAN BIRTHDATE: [birth year] DOS: 04/10/2019 PULMONARY CONSULTATION EVALUATION AND MANAGEMENT CONSULTATION REQUESTED BY: Dr. Heather Rodrigues. REASON FOR CONSULTATION: For the assessment of current acute exacerbation of chronic obstructive pulmonary disease and bronchial asthma. HISTORY OF PRESENT ILLNESS: A 58-year-old white female patient seen in my office yesterday as the patient advised to come to the hospital for inpatient treatment. The patient has been reported progressive increase in respiratory symptoms occurring at home for the past one week prior to the assessment yesterday. Symptoms started with chest congestion, coughing with gradual worsening. The patient denies symptoms of hemoptysis with current symptom progressive chest congestion, cough noted inability to expectorate sputum at times, other times noted with purulent sputum expectoration, yellowish to green in color, but scant amount. She was noted with shortness of breath occurring minimal exertion, feeling fatigued and not tiredness as well as wheezing. The patient has been assessed in the Emergency Room. The diagnosis of pneumonia was excluded and she was admitted to the hospital for further care. From yesterday to this morning as the patient started the bilevel treatment, she has been reporting partial reduction of the respiratory symptom. PAST MEDICAL HISTORY: 1. Past history known as uncomplicated severe persistent bronchial asthma with allergic phenotype currently receiving ____ injection with four injections already taken by the patient. 2. Chronic obstructive pulmonary disease. 3. Chronic hypoxic respiratory failure. 4. Nicotine dependence. 5. Hypercholesterolemia. 6. Obesity. 7. Gastroesophageal reflux. 8. Obstructive sleep apnea disorder. 9. Hypothyroidism. 10. Intervertebral disk disease. 11. History of exophthalmos. PAST SURGICAL HISTORY: 1. Appendectomy. 2. T and A. 3. Cholecystectomy. 4. Complete hysterectomy. 5. Partial thyroidectomy. 6. Cardiac catheterization. 7. Therapeutic bronchoscopies. SOCIAL HISTORY: The patient lives at home. Denies tobacco or alcohol use. The patient started smoking as a teenager, 3 packs of cigarettes per day and I am [place], [place] REPORT OF CONSULTATION NAME: MODESTA SHAH UNIT #: [id number] ROOM: 508 DOCTOR: EVA FAGAN MD,RENAN BIRTHDATE: [birth year] not sure if she is smoking any cigarettes, but denying any tobacco use at the present time. FAMILY HISTORY: The patient reported for CVA, coronary artery disease and hypertension. MEDICATIONS: The medications, which were currently administered actively noted simvastatin, Imdur, lisinopril, potassium chloride, Brilinta, Synthroid, metformin, Protonix, Solu-Medrol 30 mg b.i.d., trazodone, Ranexa, Lopid, Coreg, DuoNeb, Rocephin, and some other medications. DRUG ALLERGIES: NOTED ALLERGY TO IVP DYE. PHYSICAL EXAMINATION: GENERAL: A 58-year-old female patient currently sitting on side of bed without any distress. Height of 5 feet 5 inches, weight of 240 pounds, BMI 39.9. Chronic obesity. VITAL SIGNS: Recorded as normal temperature, respiratory rate 18-24, heart rate 113-54, blood pressure 103/56-96/78. The pulse oxygen saturation recorded on 4 L nasal cannula 91% saturation yesterday on 6 L nasal cannula. In the office, the patient was saturating about 94-95% saturation as well. HEENT: Chronic exophthalmos. Head was atraumatic. Eyes nonicterus. NECK: Supple. CARDIOVASCULAR: S1, S2 is audible. LUNGS: Noted with decreased breath sounds, expiratory wheezing, partially decreased from yesterday's examination in the office. ABDOMEN: Noted soft and obese. EXTREMITIES: The patient noted with chronic obesity finding. MUSCULOSKELETAL: Noted without any acute deformities. CENTRAL NERVOUS SYSTEM: Cranial nerves 2-12 intact. IMPRESSION: The patient has been currently noted comfortably, responding to the current treatment for acute exacerbation of bronchial asthma and chronic obstructive pulmonary disease combination. PLAN OF THERAPY: No changes in the plan of care at this time with continuation of steroids, bronchodilators, use of the BiPAP and other treatment, which was noted effective improvement in respiratory status. Sputum for Gram stain and culture if the patient expectorates sputum. Other therapy, plan of management to be continued. Usual care. [place], [place] REPORT OF CONSULTATION NAME: MODESTA SHAH UNIT #: [id number] ROOM: 508 DOCTOR: EVA FAGAN MD,RENAN BIRTHDATE: [birth year] RENAN VELASQUEZ MD CM:CONSTR:REPORT OF CONSULTATION 1532 04/10/19 2218 interface
--- NOTE | ~2019-04-09 | DS ---
[place], [place] DISCHARGE SUMMARY NAME: MODESTA SHAH [facility] #: [id number] UNIT #: [id number] ROOM: 508 DOCTOR: CHAPO RAMIREZ MD BIRTHDATE: [birth year] DOS: 04/12/2019 DIAGNOSES: 1. Acute exacerbation of chronic obstructive pulmonary disease. 2. Continued nicotine abuse. 3. Sleep apnea, uses a CPAP at home. 4. Coronary artery disease with history of stent placement. 5. Hypothyroidism. 6. Type 2 diabetes mellitus. 7. Gastroesophageal reflux disease. 8. Failure to thrive. 9. Chronic primary insomnia. 10. Graves' disease, by history. 11. Mixed hyperlipidemia. MEDICATIONS: Same as the discharge. Only new prescription given was Ceftin 250 twice daily for 5 days and prednisone 5 b.i.d. for 10 days. Rest of the meds are Coreg 3.125 b.i.d., levothyroxine 300 mcg daily, lisinopril 2.5 daily, Lopid 600 b.i.d., metformin 1000 b.i.d., potassium 10 daily, Effient 10 daily, Pravachol 40 daily, Lyrica 300 b.i.d., Ranexa 500 b.i.d., trazodone 100 at bedtime, insulin Tresiba 70 units subQ daily, Victoza subQ daily, Advair one puff twice a day, breathing treatments DuoNeb q. 4. HOSPITAL COURSE: This patient is very well known to us, comes in with complaints of difficulty breathing. The patient, after evaluation in the ER, was admitted to the hospital, was placed on a monitored bed. She complained of chest pain, rule out MS protocol was ordered, which came back negative. Consultation with the bilingual medical assistant was obtained. Dr. Bansal did see the patient, did not think that the pain was cardiac, no further investigation was done. Dr. Garcia was consulted. The patient was placed on IV steroids, antibiotics, breathing treatments. The patient unfortunately continues to smoke even in the hospital. The patient is stable and is not having any new complaints. Plan is to discharge her to home today. Her bronchospasm is almost completely resolved, and the patient should be able to go home and follow up as an outpatient. Encouraged the patient not to smoke. [place], [place] DISCHARGE SUMMARY NAME: MODESTA SHAH UNIT #: [id number] ROOM: 508 DOCTOR: CHAPO RAMIREZ MD BIRTHDATE: [birth year] CHAPO RAMIREZ MD CM:PRECIOUS [id number] CHAPO RAMIREZ MD 04/12/192200 interface
--- NOTE | ~2019-04-09 | WRIGHTHP ---
[place], [place] PATIENT HISTORY AND PHYSICAL EXAM NAME: MODESTA SHAH [facility] #: [id number] UNIT #: [id number] ROOM: 508 DOCTOR: CHAPO RAMIREZ MD BIRTHDATE: [birth year] DOS: 04/09/2019 HISTORY OF PRESENT ILLNESS: The patient is 58 years old. The patient is very well known to us. The patient comes in with complaints of difficulty breathing, cough for the last few days. The patient was last hospitalized in March 2019 with exacerbation of COPD. She was discharged home on earlier this month, but unfortunately the patient continues to smoke. She denies having any chest pains, palpitations, does not have any fever or chills, does not have any abdominal pain, nausea, emesis. PAST MEDICAL HISTORY: Significant for: 1. End-stage chronic obstructive pulmonary disease. 2. Moderate cigarette smoker. 3. Sleep apnea. 4. Coronary artery disease. 5. Hypothyroidism. 6. Type 2 diabetes mellitus. 7. Gastroesophageal reflux disease. 8. Failure to thrive. 9. Coronary artery disease, status post stent placement October 2018. 10. Chronic insomnia. 11. History of Graves disease. 12. Mixed hyperlipidemia. MEDICATIONS: At the time of admission will be Advair 1 puff twice a day 250, breathing treatments q. 4, aspirin 81 daily, Coreg 3.125 b.i.d., vitamin D 50,000 once a week, Lopid 600 b.i.d., isosorbide 120 mg daily, levothyroxine 300 mcg daily, lisinopril 2.5 daily, metformin 1000 b.i.d., potassium 10 daily, Effient 10 daily, Pravachol 40 daily, Lyrica 300 b.i.d., Ranexa 500 b.i.d., trazodone 100 at bedtime, insulin Tresiba 70 units subQ daily, Victoza subQ daily. SOCIAL HISTORY: Smokes about a half a pack of cigarettes a day. Denies using any alcohol. PHYSICAL EXAMINATION: GENERAL: She is awake and alert and oriented. VITAL SIGNS: Graphic trend shows a pressure of 132/70, pulse of 76, respirations 14, afebrile. NECK: Supple. LUNGS: Diminished breath sounds. Scattered wheezes heard. HEART: Regular. ABDOMEN: Obese, soft, nontender. EXTREMITIES: Without any edema. ASSESSMENT AND PLAN: 1. Acute exacerbation of chronic obstructive pulmonary disease. The patient has been started on intravenous steroids and antibiotics and breathing treatments. 2. Chest pain, rule out myocardial infarction protocol, came back negative. [place], [place] PATIENT HISTORY AND PHYSICAL EXAM NAME: MODESTA SHAH UNIT #: [id number] ROOM: 508 DOCTOR: CHAPO RAMIREZ MD BIRTHDATE: [birth year] Nitroglycerin sublingual is given. She is already on long-acting nitrates which are being continued. Consultation with Dr. Bansal was obtained. 3. Moderate cigarette smoker. The patient is encouraged to quit smoking, which would cut back on the visits that she has in the hospital, but we will also add Daliresp because of multiple admissions to the hospital. CHAPO RAMIREZ MD CM:HISPHYS:PATIENT HISTORY AND PHYSICAL EXAMINATION 9 5 CHAPO RAMIREZ MD 04/10/19921 interface
--- NOTE | ~2019-04-09 | EKG ---
[place], [place] ELECTROCARDIOGRAM REPORT NAME: MODESTA SHAH UNIT #: [id number] ROOM: 508 DOCTOR: EPIPHANY DRAFT REPORT BIRTHDATE: [birth year] [facility] Test Date: 2019-04-10 Test Time: 01:10:13 Pat Name: MODESTA SHAH Department: Room: 508 1 Gender: F Company Manager: Dkaotah Geller : 1960 Requested By: CHAPO RAMIREZ Order Number: [id number] [place] MD: Macrina Xiong MD Measurements Intervals [place] Rate: 57 P: 51 HI: 189 QRS: 46 QRSD: 154 T: 42 QT: 497 QTc: 484 Interpretive Statements Sinus rhythm Right bundle branch block low voltage precordial leads. Compared to ECG 03/16/2019 13:13:11 No significant changes Electronically Signed On 04-12-2019 13:30:56 PDT by Macrina Xiong MD CM:EKGRPT:ELECTROCARDIOGRAM REPORT 0110 1330 CHAPO RAMIREZ MD EPIPHANY DRAFT REPORT CHAPO RAMIREZ MD
--- NOTE | ~2019-04-09 | CON ---
[place], [place] REPORT OF CONSULTATION NAME: MODESTA SHAH UNIT #: [id number] ROOM: 508 DOCTOR: JO HERRING ALEXANDREDUSTIN BIRTHDATE: [birth year] DOS: 04/10/2019 CARDIOLOGY CONSULTATION HISTORY OF PRESENT ILLNESS: The patient is a 58-year-old female who came in with infection, severe and conservative sepsis and the pulmonary infection with one of the consideration and chronic obstructive airway disease exacerbation. When she came in, she has some chest discomfort could not be sure whether it is cardiac origin or a pulmonary origin. At one point it is on the right side of the chest and subsequently subsided and found with pulmonary infection, being treated on the possible severe sepsis. The patient came to the Emergency Room and getting the optimal treatment and the patient also has severe injury without any evidence of pulmonary emboli and the patient did not have any chills and the patient continued to smoke and continued to have the chest discomfort. PAST MEDICAL HISTORY: Including chronic obstructive disease, infection, moderate cigarette smoking, sleep apnea, coronary artery disease, coronary stenting not too long ago, hypothyroidism and supplements, type 2 diabetes, gastroesophageal reflux and failure to thrive and the patient has a coronary stenting in 10/2018 done by me and the patient has chronic coronary ischemia and history of Graves' disease and dyslipidemia. Medication list is enclosed. The patient's core measures optimal medications. The patient still smokes half a pack a day. PHYSICAL EXAMINATION: VITAL SIGNS: Stable. GENERAL: Alert, not in any acute distress. NECK: Positive hepatojugular reflexes. LUNGS: Bilateral rhonchi. HEART: S1, S2 regular. ABDOMEN: Soft. SKIN: Color is not diaphoretic. EXTREMITIES: No cyanosis. No significant peripheral edema noted. LABORATORY DATA: Her troponins were negative, repeated and no further angina. IMPRESSION: Unlikely for any acute coronary syndrome, mostly is pulmonary related and also the sepsis related. PLAN: I adjusted the medications optimally and we will continue to manage conservatively as far as the cardiovascular status concern and currently her pulmonary status is continued to improve and I will follow the patient closely now and also as an outpatient. [place], [place] REPORT OF CONSULTATION NAME: ALYSSAMODESTA CHILDS Anish UNIT #: [id number] ROOM: 508 DOCTOR: JO HERRING FACC,DUSTIN BIRTHDATE: [birth year] DUSTIN OSORIO MD CM:CONSTR:REPORT OF CONSULTATION 1135 05/07/19 0842 interface
--- NOTE | ~2019-04-09 | EKG ---
[place], [place] ELECTROCARDIOGRAM REPORT NAME: MODESTA SHAH UNIT #: [id number] ROOM: 508 DOCTOR: PRICILLA DRAFT REPORT BIRTHDATE: [birth year] [facility] Test Date: 2019-04-10 Test Time: 03:20:51 Pat Name: MODESTA SHAH Department: Room: 508 1 Gender: F Sql Etl Developer: Katerina Vo : 1960 Requested By: CHAPO RAMIREZ Order Number: [id number] [place] MD: Macrina Xiong MD Measurements Intervals [place] Rate: 53 P: 56 LA: 188 QRS: 42 QRSD: 155 T: 43 QT: 507 QTc: 477 Interpretive Statements Sinus rhythm Right bundle branch block Low voltage precordial leads. Compared to ECG 03/16/2019 13:13:11 No significant changes Electronically Signed On 04-12-2019 13:34:32 PDT by Macrina Xiong MD CM:EKGRPT:ELECTROCARDIOGRAM REPORT 0320 1334 CHAPO RAMIREZ MD EPIPHANY DRAFT REPORT CHAPO RAMIREZ MD
--- NOTE | ~2019-04-09 | PR ---
[place], [place] [facility]GRESS NOTE [id number] UNIT #: [id number] ROOM: 508 DOCTOR: EVA FAGAN MD,RENAN BIRTHDATE: [birth year] DOS: 04/11/2019 SUBJECTIVE: The patient was noted comfortable at this time, resting on the bed this morning. She has reported reduction in symptoms of shortness of breath, coughing, wheezing all of the above symptoms, used the BiPAP as ordered previously. Denies symptoms of fever, chills or hemoptysis. PHYSICAL EXAMINATION: VITAL SIGNS: At this time, normal temperature, respiratory rate 18, heart rate 50, blood pressure 126/76-104/60. Pulse oxygen saturation recorded on 4 liters nasal cannula 96% saturation. HEENT: Exophthalmos finding. NECK: Supple and obese. CARDIOVASCULAR: S1, S2 is audible. LUNGS: The patient was noted with reduction in the wheezing on auscultation bilaterally. There were no crackles. ABDOMEN: Soft, nontender. Bowel sounds present. EXTREMITIES: No acute edema. IMPRESSION: At this time, the patient who has been currently noted with resolving acute exacerbation of bronchial asthma and chronic obstructive pulmonary disease for this as well. PLAN OF CARE: No change in plan of management at this time for the use of bronchodilators and the antibiotics. Solu-Medrol will be continued on current dose. Potential discharge for the morning would be considered. RENAN VELASQUEZ MD CM:PNTRANS 1345 1528 RENAN FAGAN MD 04/11/19 1525 interface
--- NOTE | ~2019-04-09 | PR ---
[place], [place] PROGRESS NOTE [id number] #: [id number] ROOM: 508 DOCTOR: CHAPO RAMIREZ MD BIRTHDATE: [birth year] DOS: SUBJECTIVE: The patient is feeling good and is not having any complaints. Denies any chest pains, palpitations or shortness of breath. OBJECTIVE: GENERAL: She is awake and alert and oriented. VITAL SIGNS: Graphic trend shows a pressure of 132/70, pulse of 76, respirations 14, afebrile. LUNGS: Clear. HEART: Regular. ABDOMEN: Obese, soft, nontender. EXTREMITIES: Without any edema. ASSESSMENT AND PLAN: 1. Benign hypertension, controlled. 2. Chronic obstructive pulmonary disease with acute exacerbation, improving; bronchospasm is resolving. 3. Chronic sleep apnea, on a CPAP. Discussed with the patient in detail. The patient continues to smoke, encouraged to stop smoking. 4. The patient is stable, can be discharged home to be followed up with Dr. Chery as well as Dr. Garcia. CHAPO RAMIREZ MD CM:PNTRANS 1329 0209 CHAPO RAMIREZ MD 04/13/19 0431 interface
--- NOTE | ~2019-04-09 | EKG ---
[place], [place] ELECTROCARDIOGRAM REPORT NAME: MODESTA SHAH UNIT #: [id number] ROOM: 508 DOCTOR: PRICILLA DRAFT REPORT BIRTHDATE: [birth year] [facility] Test Date: 2019-04-09 Test Time: 19:25:54 Pat Name: MODESTA SHAH Department: Room: 508 Gender: F Microarray Analyst: Steff Gibbons : 1960 Requested By: ARABELLA DENTON Order Number: [id number] [place] MD: Macrina Xiong MD Measurements Intervals [place] Rate: 71 P: 60 VT: 165 QRS: -71 QRSD: 153 T: 55 QT: 448 QTc: 487 Interpretive Statements Sinus rhythm Right bundle branch block Low voltage precordial leads. Baseline wander in lead(s) V4 Compared to ECG 03/16/2019 13:13:11 No significant changes Electronically Signed On 04-12-2019 13:30:06 PDT by Macrina Xiong MD CM:EKGRPT:ELECTROCARDIOGRAM REPORT 24 1330 ARABELLA RAI DRAFT REPORT ARABELLA DENTON DO
--- NOTE | ~2019-04-09 | PR ---
[place], [place] PROGRESS NOTE [id number] UNIT #: [id number] ROOM: 508 DOCTOR: EVA FAGAN MD,RENAN BIRTHDATE: [birth year] DOS: 04/12/2019 PULMONARY PROGRESS NOTE SUBJECTIVE: She has been showing significant improvement and reduction in respiratory symptoms in the last 24 hours. Denies symptoms of chest pain, fever or chills. Coughing, wheezing, and other symptoms have improved markedly. OBJECTIVE: GENERAL: The patient is resting, sitting on the side of bed. VITAL SIGNS: This morning, normal temperature, respiratory rate 18, heart rate 56, blood pressure 134/90. Pulse oxygen saturation on 4 liters nasal cannula 97% saturation recorded. HEENT: Head was atraumatic. Eyes nonicterus. NECK: Supple. CARDIOVASCULAR SYSTEM: S1, S2 audible. LUNGS: Free of any wheezing or crackles today. ABDOMEN: Soft, obese, nontender. EXTREMITIES: No new change. IMPRESSION: Progressive and gradual resolution of acute exacerbation of chronic obstructive pulmonary disease, bronchial asthma noted with current medical management, The patient admitted, still smoking cigarettes in the home setting. PLAN OF MANAGEMENT: Tapering prednisone, oral antibiotics, and abstinence and counseling about tobacco cessation was done with the patient. RENAN VELASQUEZ MD CM:PNTRANS 1551 0107 RENAN FAGAN MD 04/13/19 0103 interface
--- NOTE | ~2019-04-09 | PR ---
[place], [place] PROGRESS NOTE NAME: MODESTA SHAH [facility] #: [id number] UNIT #: [id number] ROOM: 508 DOCTOR: CHAPO RAMIREZ MD BIRTHDATE: [birth year] DOS: SUBJECTIVE: The patient is feeling much better, does not have any new complaints. OBJECTIVE: VITAL SIGNS: Graphic trend shows a pressure 197/49, pulse of 50, respirations 18, temperature 97.4. LUNGS: Diminished breath sounds. Clear. HEART: Regular. ABDOMEN: Obese. EXTREMITIES: Without any edema. ASSESSMENT AND PLAN: 1. Precordial chest pain. Cardiology did see her and cleared her. This is atypical chest pain. 2. Chronic obstructive pulmonary disease exacerbation, improving. We will taper the steroids down and hopefully can be discharged in the morning. CHAPO RAMIREZ MD CM:PNTRANS 0 41 CHAPO RAMIREZ MD 04/11/192037 interface
--- NOTE | ~2019-04-09 | EKG ---
[place], [place] ELECTROCARDIOGRAM REPORT NAME: MODESTA SHAH UNIT #: [id number] ROOM: 508 DOCTOR: PRICILLA DRAFT REPORT BIRTHDATE: [birth year] [facility] Test Date: 2019-04-09 Test Time: 16:53:49 Pat Name: MODESTA SHAH Department: Room: 508 Gender: F Director Loss Prevention: Steff Gibbons : 1960 Requested By: ARABELLA DENTON Order Number: [id number] [place] MD: Macrina Xiong MD Measurements Intervals [place] Rate: 76 P: 59 FL: 166 QRS: -42 QRSD: 144 T: 59 QT: 429 QTc: 483 Interpretive Statements Sinus rhythm Low voltage precordial leads. Atrial premature complexes in couplets Right bundle branch block Compared to ECG 03/16/2019 13:13:11 Atrial premature complex(es) now present Electronically Signed On 04-12-2019 13:29:03 PDT by Macrina Xiong MD CM:EKGRPT:ELECTROCARDIOGRAM REPORT 1653 1329 ARABELLA RAI DRAFT REPORT ARABELLA DENTON DO
--- NOTE | ~2019-04-09 | EKG ---
[place], [place] ELECTROCARDIOGRAM REPORT NAME: MODESTA SHAH UNIT #: [id number] ROOM: 508 DOCTOR: EPIPHANY DRAFT REPORT BIRTHDATE: [birth year] [facility] Test Date: 2019-04-09 Test Time: 21:57:30 Pat Name: MODESTA SHAH Department: Room: 508 1 Gender: F Alarm Investigator: Dakotah Geller : 1960 Requested By: CHAPO RAMIREZ Order Number: [id number] [place] MD: Macrina Xiong MD Measurements Intervals [place] Rate: 69 P: 59 MT: 165 QRS: -69 QRSD: 150 T: 37 QT: 457 QTc: 490 Interpretive Statements Sinus rhythm Right bundle branch block Low voltage precordial leads. Inferior infarct, old Compared to ECG 03/16/2019 13:13:11 Myocardial infarct finding now present Electronically Signed On 04-12-2019 13:30:39 PDT by Macrina Xiong MD CM:EKGRPT:ELECTROCARDIOGRAM REPORT [id number] 1330 ARABELLA DENTON DO and CHAPO RAMIREZ MD EPIPHANY DRAFT REPORT CHAPO RAMIREZ MD
[~2019-04-09 16:41] MED LIST changes: +COREG3.125 MG PO; +MUCINEX DM ER1 EACH PO
[2019-04-09 16:44] VITALS: BP 152/120
[2019-04-09 16:52] VITALS: BP 118/41
[2019-04-09 17:03] VITALS: BP 112/52
[2019-04-09 17:23] LABS: HEMATOCRIT 40.9 % (37.0-47.0); HEMOGLOBIN 13.6 g/dl (12.0-16.0); MEAN CORPUSCULAR HGB 30.9 pg (27.0-31.0); MEAN CORPUSCULAR HGB CONC 33.3 g/dl (33.0-37.0); MEAN PLATELET VOLUME 10.4 fl (9.6-12.3); PLATELET COUNT AUTOMATED 388 10*3/uL (130-400); WHITE BLOOD COUNT 13.5 10*3/uL (4.8-10.8)
[2019-04-09 17:39] LABS: ACT PARTIAL THROMBO TIME 28.8 SECONDS (20.0-32.1); INTERNATIONAL NORM RATIO 0.9 (2.0-3.5)
[2019-04-09 17:44] LABS: ALBUMIN 3.4 gm/dl (3.1-4.5); ALKALINE PHOSPHATASE 162 U/L (45-117); BUN 13 mg/dl (7-24); CHLORIDE 106 mmol/L (98-107); CREATININE 1.02 mg/dL (0.55-1.02); POTASSIUM 4.5 mmol/L (3.5-5.1); SGOT/AST 13 IU/L (3-35); SGPT/ALT 16 U/L (12-78); SODIUM 137 mmol/L (136-145); TOTAL PROTEIN 7.5 gm/dL (6.4-8.2)
[2019-04-09 17:46] LABS: PLATELET SUFFICIENCY NORMAL (NORMAL); TOTAL CELLS COUNTED 100 #CELLS; TROPONIN I < 0.015 ng/ml (<0.045)
[2019-04-09 17:47] LABS: OVALOCYTES FEW; POLYCHROMASIA SLIGHT
--- NOTE | 2019-04-09 17:49 | NUR ---
LACTIC [employer]ID CALLED AND IS 2.2. PROVIDER MADE AWARE.
[2019-04-09 18:55] VITALS: BP 134/62
--- NOTE | 2019-04-09 18:55 | NUR ---
A 58, admitted to 5E, under the services of CHAPO Tyler MD with a diagnosis of SEVERE SEPSIS, COPD EXACERBATION, PNEUMONITIS. Chief complaint is CHEST TIGHTNESS, DYSPNEA. Patient arrived via stretcher from ER. Monitor applied. Initial assessment completed. Vital signs taken and recorded. CHAPO TYLER MD notified of admission to the unit. Orders received. See assessment for past medical history, medications and allergies. Patient and/or family oriented to unit. [address] visitation policy reviewed. Clothing/patient valuable form completed. BLADIMIR JUNG
[2019-04-09 20:00] VITALS: BP 113/61
--- NOTE | 2019-04-09 20:06 | NUR ---
Spoke with Dr. Rodrigues regarding Bipap orders and med rec updated. See new orders.
--- NOTE | 2019-04-09 20:24 | NUR ---
Notified Dr. Rodrigues of lactic acid level. See labs. See new orders.
--- NOTE | 2019-04-09 20:24 | NUR ---
Pt placed on NIV without complication. SPO2: 96% on 40%
--- NOTE | 2019-04-09 22:28 | NUR ---
Hep Lock discontinued. Site asymptomatic. Pressure applied. Sterile dressing applied. IV started left hand with #24 angiocath after 3 attempts. The IV site was prepped with Chloraprep. Heparin lock attached. IV solution 0.9NS infusing at 60 cc/hr. Sterile dressing applied. Patient tolerated precedure well. Procedure performed according to [facility] policy & procedure. LOUISA JAVIER JORDAN A
--- NOTE | 2019-04-09 22:54 | NUR ---
Spoke with Dr. Bansal regarding consult for chest pain. No new orders physician to follow up at patients bedside.
[2019-04-10] VITALS: BP 101/67
--- NOTE | 2019-04-10 07:25 | NUR ---
DR. VELASQUEZ NOTIFED OF CONSULT AT THIS TIME
--- NOTE | 2019-04-10 07:26 | NUR ---
DR. RAMIREZ CALL ORDERS RECEIVED FOR 1800 ADA DIET AT THIS TIME
--- NOTE | 2019-04-10 07:30 | NUR ---
12 HOUR CHART CHECK COMPLETED AT THIS TIME.
[2019-04-10 08:00] VITALS: BP 103/56
--- NOTE | 2019-04-10 08:00 | NUR ---
PATIENT ASSESSMENT COMPLETED AT THIS TIME. PATIENT ALERT AND ORIENTED AT THIS TIME. CURRENTLY ON NASAL CANNULA 4LPM, DENIES ANY PAIN OR CHEST PAIN/PRESSURE AT THIS TIME. MEDICATIONS GIVEN ORALLY WITHOUT INCIDENT. CALL LIGHT WITHIN REACH, PATIENT EATING BREAKFAST. WILL CONTINUE TO MONITOR.
--- NOTE | 2019-04-10 08:42 | NUR ---
24 HR chart check completed.
[2019-04-10 12:00] VITALS: BP 96/78
--- NOTE | 2019-04-10 12:00 | NUR ---
PATIENT SEATED ON SIDE OF BED AT THIS TIME WATCHING TV AND ORDERING HER LUNCH. DENIES ANY PAIN AT THIS TIME, STATES THAT HER SHORTNESS OF BREATH IS SLOWLY IMPROVING. CALL LIGHT WITHIN REACH. WILL CONTINUE TO MONITOR.
[2019-04-10 16:00] VITALS: BP 110/41
--- NOTE | 2019-04-10 16:30 | NUR ---
ASSISTED PATIENT TO REMOVE BIPAP AND AMBULATE TO BATHROOM. EXPLAINED TO PATIENT THE PURPOSE OF THE HAT COLLECTION DEVICE IN THE TOILET TO MONITOR HER OUTPUT. PATIENT CURRENTLY USING NASAL OXYGEN 4LPM. CALL LIGHT WITHIN REACH, WILL CONTINUE TO MONITOR.
[2019-04-10 20:00] VITALS: BP 112/82
[2019-04-11] VITALS: BP 97/49
[2019-04-11 08:30] VITALS: BP 104/60
--- NOTE | 2019-04-11 09:27 | NUR ---
Xanax given per patient request for c/o anxiety. Will monitor.
--- NOTE | 2019-04-11 09:37 | NUR ---
Per Dr. Rodrigues can discontinued patient monitor. See new orders.
[2019-04-11 12:00] VITALS: BP 128/76
--- NOTE | 2019-04-11 14:25 | NUR ---
Per patient request to be discharged today contacted Dr. Rodrigues. Per physician patient cannot be discharged because she does not have patients medications. Patient requested to be discharged because she will not have a ride home tomorrow.
--- NOTE | 2019-04-11 14:30 | NUR ---
chief wheelage clerk received a call from YASMEEN that patient was seen leaving through the ER doors. Nursing tank builder supervisor was on unit at the time and immediately went to ER to get the patient. Per staff patient was observed hiding behind a car smoking a cigarrette.
--- NOTE | 2019-04-11 15:05 | NUR ---
DR RAMIREZ MADE AWARE THAT PT WAS FOUND OUTSIDE SMOKING.
[2019-04-11 20:00] VITALS: BP 113/43
[2019-04-12] VITALS: BP 111/44
[2019-04-12 08:00] VITALS: BP 134/90
[2019-04-12] MEDS ORDERED: CEFUROXIME AXE250 MG PO (09:02)
[2019-04-12] MEDS ORDERED: PREDNISONE5 MG PO (09:02)
--- NOTE | 2019-04-12 09:39 | NUR ---
Discharge instructions reviewed with patient/family. Patient receptive and verbalizes understanding. Follow-up care arranged. Written instructions given to patient/family. Patient was wheeled from unit by staff members with all personal belongings accounted for. Patient was educated on follow up appointments with Dr. Garcia and family physician. Patient was tearful because she states "I don't have anybody." Patient was encouraged to talk with family physician for depression and to volunteer to help with feeling of being alone. SANDEE SHEA J
== END 2019-04-12 09:39 | disposition home or self-care (01) | DRG 872 ==
LOC: ED 16:41 → EDHOLD 18:24 → 5E 18:47
PROVIDERS: Emergency Medicine; ADMIT Internal Medicine
PROC: 5A09357 Assistance with Respiratory Ventilation, Less than 24 Consecutive Hours, Continuous Positive Airway Pressure (ICD-10-PCS; principal; 2019-04-10)
PROC: 5A09357 Assistance with Respiratory Ventilation, Less than 24 Consecutive Hours, Continuous Positive Airway Pressure (ICD-10-PCS; 2019-04-11)
DX: A41.9 Sepsis, unspecified organism (principal); J44.1 Chronic obstructive pulmonary disease with (acute) exacerbation; J45.51 Severe persistent asthma with (acute) exacerbation; J96.10 Chronic respiratory failure, unspecified whether with hypoxia or hypercapnia; I25.10 Atherosclerotic heart disease of native coronary artery without angina pectoris; E11.9 Type 2 diabetes mellitus without complications; F17.210 Nicotine dependence, cigarettes, uncomplicated; I10 Essential (primary) hypertension; E89.0 Postprocedural hypothyroidism; R07.2 Precordial pain; E78.00 Pure hypercholesterolemia, unspecified; E66.9 Obesity, unspecified; G47.33 Obstructive sleep apnea (adult) (pediatric); K21.9 Gastro-esophageal reflux disease without esophagitis; E78.2 Mixed hyperlipidemia; R62.7 Adult failure to thrive; F51.01 Primary insomnia; Z95.5 Presence of coronary angioplasty implant and graft; Z71.6 Tobacco abuse counseling; Z90.49 Acquired absence of other specified parts of digestive tract; Z90.710 Acquired absence of both cervix and uterus; Z68.39 Body mass index [BMI] 39.0-39.9, adult

== ENCOUNTER 2019-06-26 09:40 | Inpatient (IN) | payer OTHER ==
[~2019-06-26] VITALS: Ht 165.1 cm; Wt 110.9 kg
[2019-06-26 09:41] VITALS: BP 109/59
[2019-06-26 10:32] LABS: BASO % 0.1 % (0.0-1.0); HEMATOCRIT 39.5 % (37.0-47.0); HEMOGLOBIN 13.3 g/dl (12.0-16.0); LYMPH # 1.3 10*3/uL (1.3-4.4); LYMPH % 16.8 % (27.0-41.0); MEAN CELL VOLUME 93.6 fl (81.0-99.0); MEAN CORPUSCULAR HGB 31.5 pg (27.0-31.0); MEAN CORPUSCULAR HGB CONC 33.7 g/dl (33.0-37.0); MONO # 0.4 10*3/uL (0.1-1.0); MONO % 5.7 % (3.0-9.0); NEUT # 5.8 10*3/uL (2.3-7.9); PLATELET COUNT AUTOMATED 250 10*3/uL (130-400); RED BLOOD COUNT 4.22 10*6/uL (4.10-5.10); RED CELL DISTRI WIDTH 15.4 % (0-14.5); WHITE BLOOD COUNT 7.6 10*3/uL (4.8-10.8)
[2019-06-26 10:46] LABS: ALBUMIN 3.7 gm/dl (3.1-4.5); ALKALINE PHOSPHATASE 112 U/L (45-117); BUN 23 mg/dl (7-24); CHLORIDE 110 mmol/L (98-107); CREATININE 1.01 mg/dL (0.55-1.02); POTASSIUM 4.4 mmol/L (3.5-5.1); SGOT/AST 15 IU/L (3-35); SGPT/ALT 20 U/L (12-78); SODIUM 139 mmol/L (136-145); TOTAL PROTEIN 7.6 gm/dL (6.4-8.2)
--- NOTE | 2019-06-26 11:28 | NUR ---
PT PROVIDED LUNCH TRAY PER REQUEST.
[2019-06-26 11:37] VITALS: BP 104/64
--- NOTE | 2019-06-26 11:48 | NUR ---
PT ATE 100% OF LUNCH. PT REQUESTING PAIN MEDICATION. ABHILASH RAPHAEL NOTIFIED,
[2019-06-26 13:05] VITALS: BP 104/62
--- NOTE | 2019-06-26 13:35 | NUR ---
SPOKE WITH DR RAMIREZ REGARDING ADMISSION ORDERS, ORDERS REVIEWED AND VERIFIED.
[2019-06-26 14:39] VITALS: BP 102/60
--- NOTE | 2019-06-26 14:42 | NUR ---
PT STATES HAS HAD SOME RELIEF OF PAIN FROM VICODIN.
[2019-06-26 15:05] VITALS: BP 106/59
--- NOTE | 2019-06-26 15:11 | NUR ---
Time: 1504 A 58 year old FEMALE admitted to 5E under services of CHAPO TYLER MD. Pt. arrived via bed from ER. Chief complaint: MULTIPLE COMPLIANT, BACK PAIN, WEAKNESS. DAVID PEREYRA
--- NOTE | 2019-06-26 16:09 | NUR ---
PT C/O OF MULTIPLE COMPLIANTS, BACK PAIN BILATERAL LEG PAIN, PAIN "ALL OVER" RATING 6/10 ACHES, PRN NORCO GIVEN PER ORDER, PT EATING CHIPS AND TALKING ON PHONE DURING ASSESSMENT OF PAIN,
--- NOTE | 2019-06-26 16:45 | NUR ---
PT RESTING IN BED WITH EYES CLOSED NO COMPLAINTS AT THIS TIME
[2019-06-26 20:00] VITALS: BP 117/68
--- NOTE | 2019-06-26 23:50 | NUR ---
PRN NORCO GIVEN FOR C/O BACK PAIN RATING A 7/10. CALL LIGHT IS WITHIN REACH, WILL MONITOR EFFECT.
[2019-06-27] VITALS: BP 113/83
--- NOTE | 2019-06-27 00:30 | NUR ---
PRN NORCO APPEARS EFFECTIVE, PATIENT IS SLEEPING WITH EASY AND REGULAR RESPER ON BIPAP. CALL LIGHT IS WITHIN REACH.
--- NOTE | 2019-06-27 05:47 | NUR ---
PRN NORCO GIVEN FOR C/O BACK PAIN RATING A 7/10. CALL LIGHT IS WITHIN REACH, WILL MONITOR EFFECT.
[2019-06-27 08:00] VITALS: BP 105/54
[2019-06-27 12:00] VITALS: BP 98/60
[2019-06-27 16:00] VITALS: BP 111/77
[2019-06-27 20:00] VITALS: BP 104/56
--- NOTE | 2019-06-27 20:22 | NUR ---
PRN NORCO GIVEN FOR C/O BACK PAIN RATING A 7/10. CALL LIGHT IS WITHIN REACH, WILL MONITOR EFFECT.
--- NOTE | 2019-06-27 21:30 | NUR ---
PRN NORCO APPEARS EFFECTIVE, PATIENT IS SLEEPING WITH EASY AND REGULAR RESPERS ON BIPAP. CALL LIGHT IS WITHIN REACH.
--- NOTE | 2019-06-27 23:43 | NUR ---
PRN NORCO GIVEN FOR C/O BACK PAIN RATING A 5/10. CALL LIGHT IS WITHIN REACH, WILL MONITOR EFFECT.
[2019-06-28] VITALS: BP 111/63
--- NOTE | 2019-06-28 00:30 | NUR ---
PRN NORCO APPEARS EFFECTIVE, PATIENT IS SLEEPING WITH EASY AND REGULAR RESPERS ON BIPAP. CALL LIGHT IS WITHIN REACH.
--- NOTE | 2019-06-28 04:08 | NUR ---
PRN NORCO GIVEN FOR C/O BACK PAIN RATING A 7/10. CALL LIGHT IS WITHIN REACH, WILL MONITOR EFFECT.
--- NOTE | 2019-06-28 05:00 | NUR ---
PRN NORCO APPEARS EFFECTIVE, PATIENT IS SLEEPING WITH EASY AND REGULAR RESPER ON 4L NC. CALL LIGHT IS WITHIN REACH.
--- NOTE | 2019-06-28 07:37 | NUR ---
VITAL SIGNS STABLE. GUZMAN. ALERT AND ORIENTED X3. CAP REFILL <3 SECONDS. SKIN TURGOR IS NOT TENTING. HEART SOUNDS NORMAL. LUNGS SOUND CLEAR THROUGHOUT. POSITIVE PEDAL PULSES. PO2 94% 4L NC. ABDOMEN SOFT, NON TENDER, NON DISTENDED. BS ACTIVE X4. SKIN IS PINK, WARM AND DRY. IV SITE TO THE LEFT HAND SHOWS NO S/S OF INFECTION. PT IS NOT COMPLAINING OF PAIN AT THIS TIME. PT IS VERY PLEASANT. WILL CONTINUE TO ASSESS. KATHLEEN ORNELAS SPKIARACC
[2019-06-28 08:00] VITALS: BP 112/87
--- NOTE | 2019-06-28 08:08 | NUR ---
PT C/O OF PAIN IN HER LOWER BACK. SHE RATED HER PAIN A 9/10. GAVE NORCO 1 5/325MG PO. WILL CONTINUE TO ASSESS. KATHLEEN ORNELAS SPNRCC
--- NOTE | 2019-06-28 08:13 | NUR ---
PHYSICAL THERAPY Screen received as well as orders for PT will follow thank you Emma Tobias PT
--- NOTE | 2019-06-28 08:17 | NUR ---
PT C/O PAIN. GAVE NORCO 5/325MG PO. WILL CONTINUE TO MONITOR. KATHLEEN ORNELAS SPNRCC
--- NOTE | 2019-06-28 08:18 | NUR ---
DR. RAMIREZ CAME TO VISIT PT. SEE NEW ORDERS. KATHLEEN ORNELAS SPNRCC
--- NOTE | 2019-06-28 08:25 | NUR ---
GAVE 1 VALIUM 2.5MG PO FOR ANXIETY. WILL CONTINUE TO MONITOR. KATHLEEN ORNELAS SPNRCC
--- NOTE | 2019-06-28 08:31 | NUR ---
GAVE 1 TAB VALIUM 2.5MG PO FOR ANXIETY. WILL CONTINUE TO MONITOR. KATHLEEN ORNELAS SPNRCC
--- NOTE | 2019-06-28 08:35 | NUR ---
PT C/O PAIN IN HER LOWER BACK. SHE RATED HER PAIN A 9/10. GAVE NORCO 1 5/325MG PO. WILL CONTINUE TO MONITOR. KATHLEEN ORNELAS SPNRCC
--- NOTE | 2019-06-28 08:44 | NUR ---
Nursing screen received and chart reviewed. Please send OT orders if patient has a decline in ADLs and functional mobility/transfers. Thank you. Jennyfer Colon, OTR/L
--- NOTE | 2019-06-28 09:00 | NUR ---
[place] Room Worker in to talk to patient. Patient states lives at home alone in [facility]. There are 0 steps in the home. There is an elevator. Physician: Dr. Chaparro Chery Pharmacy: [facility] Home health services: [facility] every other day Patient's level of ADLs: MINIMAL ASSIST Patient has working utilities: yes DME: cane, O2 @ 4L nc, portable O2 tanks, nebulizer, O2 supplier [facility] Follow-up physician's appointment after d/c: she prefers to make her own follow up appt after discharge Does patient want to access PORTAL?: no Discharge plan discussed with patient. She lives at home with 2 darline friends living in her upstairs. She states she is independent in her ADLs and ambulates with a cane. Discussed short term SNF and she is refusing at this time. Discussed home health care services and she currently has [facility] every other day to help her clean and shower. She denies any other home needs at this time. When medically stable she will be discharged to home. Her friend, Maria Alejandra, will provide transportation on discharge. Notified Dr. Rodrigues of patient's request for a wheelchair at home along with medication for depression vs anxiety as she lost her best friend of 52 years last month. JOYA YIN
[2019-06-28 09:28] LABS: BILIRUBIN NEGATIVE (NEGATIVE); BLOOD NEGATIVE (NEGATIVE); CLARITY SL CLOUDY (CLEAR); COLOR YELLOW (YELLOW); GLUCOSE NEGATIVE (NEGATIVE); KETONE NEGATIVE (NEGATIVE); LEUKO ESTERASE NEGATIVE (NEGATIVE); NITRITE NEGATIVE (NEGATIVE); PH 5.5 (5.0-9.0); SPECIFIC GRAVITY 1.015 (1.005-1.030); UROBILINOGEN 0.2 E.U./dl (0.2-1.0)
[2019-06-28 09:45] LABS: BACTERIA TRACE
--- NOTE | 2019-06-28 10:27 | NUR ---
MARISOL HOWE EFFECTIVE. PT STATES " THANK YOU SO MUCH, I FEEL BETTER". WILL CONTINUE TO MONITOR. KATHLEEN ORNELAS SPNRCC
--- NOTE | 2019-06-28 10:52 | NUR ---
VALIUM EFFECTIVE. PT STATES " I FEEL BETTER THAN THIS MORNING, I JUST WANT TO SLEEP". RESPIRATIONS EASY AND REGULAR. WILL CONTINUE TO MONITOR. KATHLEEN ORNELAS SPNRCC
[2019-06-28 12:00] VITALS: BP 138/78
--- NOTE | 2019-06-28 12:23 | NUR ---
PT UNABLE TO COMPLETE MRI. PT DEVELOPED ANXIETY AND REFUSED TO COMPLETE TESTING.
--- NOTE | 2019-06-28 12:37 | NUR ---
PT C/O BACK PAIN. RATED HER PAIN A 10/10. GAVE NORCO 1 5/325MG PO. WILL CONTINUE TO MONITOR. KATHLEEN ORNELAS SPNRCC
--- NOTE | 2019-06-28 13:08 | NUR ---
NOTIFED THAT PATIENT WAS UNABLE TO COMPLETE MRI, NEW ORDER FOR CT
--- NOTE | 2019-06-28 13:10 | NUR ---
NOTIFIED THAT PATIENTS REQUESTING DEPRESSION MEDICATIONS AND ANXIETY MEDICATIONS, NEW ORDER FOR CONSULT
--- NOTE | 2019-06-28 14:03 | NUR ---
PHYSICAL THERAPY Attempted eval at the BS pt on BIPAP in bed, awakened from sleep introduced myself and ed on PT eval/order. Presently pt does not want to perform any therapy.."not up to it" and "wanting to rest". Will follow, thank you. Emma Tobias PT
[2019-06-28 16:00] VITALS: BP 103/54
[2019-06-28 20:00] VITALS: BP 95/54
--- NOTE | 2019-06-28 20:15 | NUR ---
NICODERM PATCH FELL OFF PER PT. NEW NICODERM PATCH APPLIED TO LEFT UPPER ARM. 02 BEING MAINTAINED AT 4 LITERS; PULSE OX 97%. LUNGS VERY DIMINISHED BILATERALLY; NO COUGH NOTED. ABDOMEN OBESE WITH HYPOACTIVE BOWEL SOUNDS. STATES THAT SHE HAD A BM 2 DAYS AGO. VOIDING WITHOUT DIFFICULTY. CALL LIGHT WITHIN REACH.
--- NOTE | 2019-06-28 22:15 | NUR ---
IV started left forearm with #22 protective cath after 1 attempts. Site prepped with Chloroprep. Sterile dressing applied. Patient tolerated procedure well. IV infusing at cc/hr. HERVE HERNANDEZ
--- NOTE | 2019-06-28 22:30 | NUR ---
MEDICATED WITH NORCO FOR C/O BACK PAIN RATED AN 8/10.
[2019-06-29] VITALS: BP 97/51
--- NOTE | 2019-06-29 00:08 | NUR ---
C/O NAUSEA; MEDICATED WITH ZOFRAN.
--- NOTE | 2019-06-29 02:00 | NUR ---
VOICES NO FURTHER C/O NAUSEA; ZOFRAN EFFECTIVE.
--- NOTE | 2019-06-29 06:23 | NUR ---
MEDICATED WITH NORCO FOR C/O BACK PAIN.
--- NOTE | 2019-06-29 06:31 | NUR ---
BLOOD SUGAR 183.
[2019-06-29 08:00] VITALS: BP 102/69
[2019-06-29] MEDS ORDERED: HYDROCODONE-AC1 EAC1 PO (08:31)
[2019-06-29] MEDS ORDERED: PREDNISONE5 MG PO (08:31)
--- NOTE | 2019-06-29 08:55 | NUR ---
Manager Managed Backup Services in to see patient. Discussed home health care services and she is agreeable. When provided with a list of agencies she chose [facility]. Referral faxed to [facility].
--- NOTE | 2019-06-29 09:18 | NUR ---
PT DISCHARGED HOME AT THIS TIME. EULOGIO MATA. FRIEND TRANSPORTING. PA TAKING OUT VIA WC.
== END 2019-06-29 09:17 | disposition home health service (06) | DRG 552 ==
LOC: ED 09:40 → 5E 11:33 → EDHOLD 11:33 → 5E 14:11
PROVIDERS: Nurse Practitioner Family; ADMIT Internal Medicine
PROC: 5A09357 Assistance with Respiratory Ventilation, Less than 24 Consecutive Hours, Continuous Positive Airway Pressure (ICD-10-PCS; principal; 2019-06-29)
DX: M48.061 Spinal stenosis, lumbar region without neurogenic claudication (principal); Z68.41 Body mass index [BMI] 40.0-44.9, adult; M54.16 Radiculopathy, lumbar region; J44.9 Chronic obstructive pulmonary disease, unspecified; G89.29 Other chronic pain; G47.33 Obstructive sleep apnea (adult) (pediatric); I25.10 Atherosclerotic heart disease of native coronary artery without angina pectoris; F51.01 Primary insomnia; E78.2 Mixed hyperlipidemia; E05.00 Thyrotoxicosis with diffuse goiter without thyrotoxic crisis or storm; E03.9 Hypothyroidism, unspecified; F17.210 Nicotine dependence, cigarettes, uncomplicated; K21.9 Gastro-esophageal reflux disease without esophagitis; R62.7 Adult failure to thrive; E11.9 Type 2 diabetes mellitus without complications; Z79.4 Long term (current) use of insulin; Z99.81 Dependence on supplemental oxygen; Z90.49 Acquired absence of other specified parts of digestive tract; Z91.041 Radiographic dye allergy status; Z90.710 Acquired absence of both cervix and uterus; Z95.5 Presence of coronary angioplasty implant and graft; Z82.49 Family history of ischemic heart disease and other diseases of the circulatory system; Z82.3 Family history of stroke; Z83.3 Family history of diabetes mellitus; Z82.0 Family history of epilepsy and other diseases of the nervous system; Z84.89 Family history of other specified conditions

== ENCOUNTER 2019-10-13 18:33 | Inpatient (IN) | payer OTHER ==
[~2019-10-13] VITALS: Ht 165.1 cm; Wt 109.8 kg
[~2019-10-13 18:33] MED LIST changes: +HYDROCODONE-AC1 EAC1 PO
[2019-10-13 18:42] VITALS: BP 109/69
[2019-10-13 19:16] LABS: BASO % 0.1 % (0.0-1.0); HEMATOCRIT 40.3 % (37.0-47.0); LYMPH # 1.4 10*3/uL (1.3-4.4); MEAN CORPUSCULAR HGB 29.7 pg (27.0-31.0); MEAN CORPUSCULAR HGB CONC 32.3 g/dl (33.0-37.0); MEAN PLATELET VOLUME 10.8 fl (9.6-12.3); MONO # 0.6 10*3/uL (0.1-1.0); MONO % 7.6 % (3.0-9.0); NEUT # 5.8 10*3/uL (2.3-7.9); NEUT % 73.9 % (47.0-73.0); PLATELET COUNT AUTOMATED 263 10*3/uL (130-400); RED BLOOD COUNT 4.38 10*6/uL (4.10-5.10); RED CELL DISTRI WIDTH 14.9 % (0-14.5); WHITE BLOOD COUNT 7.9 10*3/uL (4.8-10.8)
[2019-10-13 19:24] LABS: INTERNATIONAL NORM RATIO 0.9 (2.0-3.5)
[2019-10-13 19:32] LABS: ALBUMIN 3.3 gm/dl (3.1-4.5); ALKALINE PHOSPHATASE 130 U/L (45-117); BUN 17 mg/dl (7-24); CHLORIDE 111 mmol/L (98-107); CREATININE 0.79 mg/dL (0.55-1.02); POTASSIUM 4.2 mmol/L (3.5-5.1); SGOT/AST 13 IU/L (3-35); SGPT/ALT 16 U/L (12-78); SODIUM 143 mmol/L (136-145); TOTAL PROTEIN 7.4 gm/dL (6.4-8.2)
[2019-10-13 19:33] LABS: TROPONIN I < 0.015 ng/ml (<0.045)
--- NOTE | 2019-10-13 20:06 | NUR ---
PT IS BEING TESTED FOR RICHARDS VIRUS.
[2019-10-13 21:25] VITALS: BP 98/60
--- NOTE | 2019-10-13 21:25 | NUR ---
A 59, admitted to 5E, under the services of LETTY Potts DO with a diagnosis of PNEUMONIA. Chief complaint is SHORTNESS OF BREATH. Patient arrived via bed from ER. Monitor applied. Initial assessment completed. Vital signs taken and recorded. LETTY POTTS DO notified of admission to the unit. Orders received. See assessment for past medical history, medications and allergies. Patient and/or family oriented to unit. [address] visitation policy reviewed. Clothing/patient valuable form completed. ANAHI ARREDONDO
--- NOTE | 2019-10-13 22:00 | NUR ---
PATIENT STATED THAT SHE ALREADY HAS PAIN IN HER BACK, BUT IT IS WORSE SHE BELIEVES FROM COUGHING. SHE STATES SHE GOES TO A PAIN CLINIC AND GETS "INJECTIONS" IN HER BACK BUT DOES NOT GET ANY PAIN MEDICATION PRESCRIBED
--- NOTE | 2019-10-13 22:02 | NUR ---
CALLED DR. RICHARD AWARE MEDS ARE UPDATED AND NEED ORDERED. ALSO PT NEEDS C-PAP AT BEDTIME.
--- NOTE | 2019-10-13 22:05 | NUR ---
INFECTIOUS DISEASE PAGED AT THIS TIME
--- NOTE | 2019-10-13 22:11 | NUR ---
CALLED DR. VELASQUEZ AWARE OF CONSULT. ORDERS TAKEN AND REVIEWED. HOLD C-PAP UNTIL RULED OUT COVID.
--- NOTE | 2019-10-13 22:20 | NUR ---
NOTIFIED DR. RICHARD OF WHAT DR. VELASQUEZ SAID ABOUT PO AZITHROMYCIN VS. IV AND THAT HE STATED TO HOLD HER CPAP AT NIGHT FOR NOW.
--- NOTE | 2019-10-13 22:32 | NUR ---
PRN NORCO GIVEN FOR PT COMPLAINTS OF PAIN IN THE MIDDLE OF THE RIGHT SIDE OF HER BACK RADIATING TO THE CENTER OF HER BACK. PATIENT CRYING IN PAIN. RATING IT 10/10. CALL LIGHT WITHIN REACH, WILL MONITOR
--- NOTE | 2019-10-13 22:54 | NUR ---
PRN ATIVAN GIVEN FOR PATIENT GETTING EXTREMELY WORKED UP DUE TO NOT BEING ABLE TO USE HER BIPAP FOR THE NIGHT. EXPLAINED THE RATIONALE TO THE PATIENT AND EXPLAINED TO HER ABOUT COVID AND THE REASONING BEHIND IT.
--- NOTE | 2019-10-13 23:00 | NUR ---
PATIENT CALMING DOWN AT THIS TIME. ENCOURAGED PATIENT TO FOCUS ON HER BREATHING. PATIENT REQUESTED TO EAT HER POTATO CHIPS. PATIENT SITTING UP ON THE SIDE OF THE BED. BREATHING IS EASIER, STILL MILDLY DYSPNIC. PATIENT REQUESTING HER SLEEPING PILL. CALL LIGHT WITHIN REACH
[2019-10-14] VITALS: BP 117/51; BP 98/60
--- NOTE | 2019-10-14 | NUR ---
PLACED PATIENT UP IN RECLINER CHAIR. PATIENT MUCH CALMER. STATES SHE HAS CALMED DOWN SO MUCH BUT STILL HAS A LITTLE BIT OF PAIN IN HER RIGHT SIDE. PATIENT DENIES ANY OTHER NEEDS AT THIS TIME. CALL LIGHT LEFT WITHIN REACH. WILL CONTINUE TO MONITOR
--- NOTE | 2019-10-14 01:08 | NUR ---
PATIENT SLEEPING SITTING UP IN RECLINER CHAIR. NO DISTRESS NOTED. CALL LIGHT WITHIN REACH, WILL MONITOR
--- NOTE | 2019-10-14 02:16 | NUR ---
PATIENT CONTINUES TO SLEEP IN RECLINER CHAIR. WAKING UP OCCASIONALLY TO COUGH. HEART RATE REMAINS IN THE 60'S. PATIENTS O2 INTACT. NO DISTRESS NOTED. OK FROM DR. RICHARD TO SEND SPUTUM OFF IF ABLE TO OBTAIN. CALL LIGHT WITHIN REACH, WILL MONITOR
--- NOTE | 2019-10-14 02:46 | NUR ---
PRN NORCO AND VENTOLIN GIVEN FOR PT COMPLAINTS OF MILD SHORTNESS OF BREATH AND PAIN IN THE RIGHT MIDDLE BACK RATING IT 7/10. CALL LIGHT WITHIN REACH. ICE PITCHER REFILLED. PATIENT DENIES ANY OTHER NEEDS. WILL MONITOR
[2019-10-14] MEDS ORDERED: PRASUGREL HCL10 MG PO (03:03)
--- NOTE | 2019-10-14 03:03 | NUR ---
NOTIFIED DR. RICHARD THAT IN PATIENTS CLAIM HISTORY SHE JUST HAD EFFIENT FILLED ON THE September. DR. RICHARD STATED TO JUST HOLD THE MEDICATION
[2019-10-14 04:00] VITALS: BP 112/43
--- NOTE | 2019-10-14 04:09 | NUR ---
VITAL SIGNS TAKEN. PATIENT STATES PAIN STILL IN HER BACK, NOT COMPLETELY GONE BUT SOMEWHAT BETTER. PATIENT UP TO RESTROOM AT THIS TIME WELL. NO OTHER COMPLAINTS. CALL LIGHT WITHIN REACH, WILL MONITOR
--- NOTE | 2019-10-14 05:00 | NUR ---
PATIENT RESTING SOUNDLY. NO DISTRESS NOTED. 4L NC INTACT. BREATHING IS EASY AND REGULAR. CALL LIGHT WITHIN REACH, WILL MONITOR
[2019-10-14 05:58] LABS: ALBUMIN 3.2 gm/dl (3.1-4.5); ALKALINE PHOSPHATASE 121 U/L (45-117); BUN 19 mg/dl (7-24); CHLORIDE 107 mmol/L (98-107); CREATININE 0.83 mg/dL (0.55-1.02); PHOSPHOROUS 4.3 mg/dL (2.5-4.9); POTASSIUM 4.3 mmol/L (3.5-5.1); SGOT/AST 11 IU/L (3-35); SGPT/ALT 17 U/L (12-78); SODIUM 137 mmol/L (136-145); TOTAL PROTEIN 7.1 gm/dL (6.4-8.2)
[2019-10-14 06:05] LABS: BASO % 0.1 % (0.0-1.0); LYMPH # 1.5 10*3/uL (1.3-4.4); LYMPH % 22.5 % (27.0-41.0); MEAN CELL VOLUME 93.1 fl (81.0-99.0); MEAN CORPUSCULAR HGB 29.8 pg (27.0-31.0); MEAN CORPUSCULAR HGB CONC 32.1 g/dl (33.0-37.0); MEAN PLATELET VOLUME 11.3 fl (9.6-12.3); MONO # 0.7 10*3/uL (0.1-1.0); MONO % 9.5 % (3.0-9.0); NEUT # 4.6 10*3/uL (2.3-7.9); NEUT % 67.6 % (47.0-73.0); PLATELET COUNT AUTOMATED 245 10*3/uL (130-400); RED BLOOD COUNT 4.19 10*6/uL (4.10-5.10); RED CELL DISTRI WIDTH 15.5 % (0-14.5); WHITE BLOOD COUNT 6.9 10*3/uL (4.8-10.8)
[2019-10-14 08:00] VITALS: BP 114/50
--- NOTE | 2019-10-14 08:00 | NUR ---
PT RESTING IN CHAIR. STATES BACK/SIDE PAIN IS A LITTLE BETTER. RESPS EASY AND NON LABORED. MILD DYSPNEA NOTED AT REST. NO IMMEDIATE S/S OF DISTRESS NOTED. VSS. 4L OXYGEN VIA NASAL CANNULA INTACT. WHITE BOARD UPDATED. PT RE-EDUCATED REGARDING NEED FOR SPUTUM SAMPLE. ALSO INSTRUCTED ON USE OF ALBUTEROL INHALER.
--- NOTE | 2019-10-14 09:13 | NUR ---
PT C/O 5/10 ACHING BACK PAIN RELATED TO COUGHING. MEDICATED PER ORDER. WILL MONITOR FOR RELIEF. VOICES NO OTHER CONCERNS AT THIS TIME. RESTING IN BED. CALL LIGHT WITHIN REACH
[2019-10-14 12:00] VITALS: BP 101/48
--- NOTE | 2019-10-14 12:07 | NUR ---
Afloat Cryptologic Manager in to talk to patient. Patient states lives at HOME with ALONE. There are NO steps in the home. Physician: LISETTE [facility]acy: [facility] Home health services: [facility] 3 DAYS A WHEEK 8 HOURS A DAY Patient's level of ADLs: INDEPENDENT Patient has working utilities: YES DME: NONE Follow-up physician's appointment after d/c: WILL BE MADE BY HOSPITALIST NURSE DIRECTOR ON DISCHARGE Does patient want to access PORTAL?: NO Discharge plan PT LIVES AT HOME ALONE AND IS INDEPENDENT IN CARE PER CALL TO DAUGHTER. STATES SHE GETS MEALS DELIVERED. HAS [facility] 3 DAYS A WEEK FOR 2 HOURS A DAY. DENIES SHE WILL HAVE ANY OTHER NEEDS WHEN DICHARGED. WILL CONTINUE TO FOLLOW. STATES SHE WILL TAKE HER MOTHER HOME ON DISCHARGE.. PAULA GRIFFIN
--- NOTE | 2019-10-14 15:21 | NUR ---
RAPID COVID-19 SWAB COMPLETED AND READ BY DR RUTLEDGE AND DR LARA. RESULTS WERE NEGATIVE.
[2019-10-14] MEDS ORDERED: LISINOPRIL5 MG PO (15:26)
[2019-10-14] MEDS ORDERED: HYDROCODONE-AC1 EAC1 PO (15:26)
[2019-10-14] MEDS ORDERED: TAMIFLU 75MG CA75 MG PO (15:29)
[2019-10-14] MEDS ORDERED: ZITHROMAX250 MG PO (15:29)
--- NOTE | 2019-10-14 15:42 | NUR ---
Discharge instructions reviewed with patient/family. Patient receptive and verbalizes understanding. Follow-up care arranged. Written instructions given to patient/family. HISSOM,CRISTIN The Discharge Plan/Instructions have been completed.
== END 2019-10-14 15:45 | disposition home or self-care (01) | DRG 190 ==
LOC: ED 18:33 → 5E 20:18 → EDHOLD 20:18 → 5E 20:46
PROVIDERS: Physician Assistant; Student in an Organized Health Care Education/Training Program; ADMIT Internal Medicine
DX: J44.0 Chronic obstructive pulmonary disease with (acute) lower respiratory infection (principal); J18.9 Pneumonia, unspecified organism; Z68.41 Body mass index [BMI] 40.0-44.9, adult; J44.1 Chronic obstructive pulmonary disease with (acute) exacerbation; M54.9 Dorsalgia, unspecified; G89.29 Other chronic pain; R53.1 Weakness; I25.10 Atherosclerotic heart disease of native coronary artery without angina pectoris; I11.0 Hypertensive heart disease with heart failure; F32.9 Major depressive disorder, single episode, unspecified; K21.9 Gastro-esophageal reflux disease without esophagitis; F41.9 Anxiety disorder, unspecified; J45.50 Severe persistent asthma, uncomplicated; G47.33 Obstructive sleep apnea (adult) (pediatric); E78.00 Pure hypercholesterolemia, unspecified; F17.210 Nicotine dependence, cigarettes, uncomplicated; E03.9 Hypothyroidism, unspecified; E11.40 Type 2 diabetes mellitus with diabetic neuropathy, unspecified; E66.9 Obesity, unspecified; Z20.828 Contact with and (suspected) exposure to other viral communicable diseases; E11.65 Type 2 diabetes mellitus with hyperglycemia; I50.9 Heart failure, unspecified; Z91.041 Radiographic dye allergy status; Z90.49 Acquired absence of other specified parts of digestive tract; Z90.710 Acquired absence of both cervix and uterus; Z95.5 Presence of coronary angioplasty implant and graft; Z82.0 Family history of epilepsy and other diseases of the nervous system; Z82.3 Family history of stroke; Z82.49 Family history of ischemic heart disease and other diseases of the circulatory system; Z83.3 Family history of diabetes mellitus; Z79.899 Other long term (current) drug therapy

== ENCOUNTER → 2019-11-02 | Outpatient (CLI) | payer OTHER ==
[~2019-11-02] MED LIST changes: +PRASUGREL HCL10 MG PO; +TAMIFLU 75MG CA75 MG PO; +ZITHROMAX250 MG PO
== END ==
LOC: RAD 10:48
DX: J44.1 Chronic obstructive pulmonary disease with (acute) exacerbation (principal); J18.9 Pneumonia, unspecified organism

== ENCOUNTER 2020-01-09 22:18 | Inpatient (IN) | payer OTHER ==
[~2020-01-09] VITALS: Ht 165.1 cm; Wt 109.9 kg
[2020-01-09 23:08] LABS: BASO % 0.2 % (0.0-1.0); HEMATOCRIT 39.6 % (37.0-47.0); LYMPH # 1.7 10*3/uL (1.3-4.4); LYMPH % 11.7 % (27.0-41.0); MEAN CELL VOLUME 91.5 fl (81.0-99.0); MEAN CORPUSCULAR HGB CONC 32.8 g/dl (33.0-37.0); MEAN PLATELET VOLUME 10.4 fl (9.6-12.3); MONO # 0.7 10*3/uL (0.1-1.0); MONO % 5.1 % (3.0-9.0); NEUT # 11.8 10*3/uL (2.3-7.9); NEUT % 82.6 % (47.0-73.0); PLATELET COUNT AUTOMATED 303 10*3/uL (130-400); RED BLOOD COUNT 4.33 10*6/uL (4.10-5.10); RED CELL DISTRI WIDTH 16.1 % (0-14.5); WHITE BLOOD COUNT 14.2 10*3/uL (4.8-10.8)
[2020-01-09 23:19] LABS: ACT PARTIAL THROMBO TIME 24.9 SECONDS (20.0-32.1)
[2020-01-09 23:24] LABS: ALBUMIN 3.4 gm/dl (3.1-4.5); ALKALINE PHOSPHATASE 115 U/L (45-117); BUN 13 mg/dl (7-24); CHLORIDE 111 mmol/L (98-107); CREATININE 0.83 mg/dL (0.55-1.02); POTASSIUM 3.9 mmol/L (3.5-5.1); SGOT/AST 9 IU/L (3-35); SGPT/ALT 16 U/L (12-78); SODIUM 144 mmol/L (136-145); TOTAL PROTEIN 7.4 gm/dL (6.4-8.2)
[2020-01-09 23:25] LABS: TROPONIN I 0.032 ng/ml (<0.045)
[2020-01-10] VITALS: BP 106/55
[2020-01-10 02:10] VITALS: BP 110/71
[2020-01-10 04:00] VITALS: BP 112/66
[2020-01-10 08:00] VITALS: BP 137/65
[2020-01-10 08:03] LABS: ABG BASE EXCESS 0.2 mmol/L (-2.0-2.0); ARTERIAL BLOOD GAS PH 7.313 (7.35-7.45)
[2020-01-10 12:00] VITALS: BP 122/73
[2020-01-10 20:00] VITALS: BP 122/45
[2020-01-11] VITALS: BP 102/64
[2020-01-11 09:00] VITALS: BP 105/46
[2020-01-11 12:00] VITALS: BP 85/50
[2020-01-11 12:57] LABS: ABG BASE EXCESS -0.7 mmol/L (-2.0-2.0); ARTERIAL BLOOD GAS PH 7.361 (7.35-7.45)
[2020-01-11 16:00] VITALS: BP 86/50
[2020-01-11 20:00] VITALS: BP 124/61
[2020-01-12] VITALS: BP 100/45
[2020-01-12 07:24] LABS: BUN 34 mg/dl (7-24); CHLORIDE 104 mmol/L (98-107); CREATININE 0.83 mg/dL (0.55-1.02); POTASSIUM 4.6 mmol/L (3.5-5.1); SODIUM 137 mmol/L (136-145)
[2020-01-12 08:00] VITALS: BP 106/54
[2020-01-12 12:00] VITALS: BP 119/60
[2020-01-12 16:00] VITALS: BP 121/53
[2020-01-12 20:00] VITALS: BP 104/52
[2020-01-13] VITALS: BP 119/68
[2020-01-13 08:00] VITALS: BP 115/66
== END 2020-01-13 08:44 | disposition short-term general hospital (02) | DRG 190 ==
LOC: ED 22:18 → EDHOLD 01-10 01:06 → 5E 01-10 01:06 → ICCU 01-10 01:47 → 5E 01-10 15:50
PROVIDERS: Emergency Medicine; Internal Medicine Critical Care Medicine; ADMIT Internal Medicine
DX: J44.1 Chronic obstructive pulmonary disease with (acute) exacerbation (principal); J96.21 Acute and chronic respiratory failure with hypoxia; J96.22 Acute and chronic respiratory failure with hypercapnia; Z68.41 Body mass index [BMI] 40.0-44.9, adult; J45.51 Severe persistent asthma with (acute) exacerbation; I10 Essential (primary) hypertension; E66.01 Morbid (severe) obesity due to excess calories; E11.9 Type 2 diabetes mellitus without complications; F17.210 Nicotine dependence, cigarettes, uncomplicated; R62.7 Adult failure to thrive; G47.33 Obstructive sleep apnea (adult) (pediatric); F41.1 Generalized anxiety disorder; I25.10 Atherosclerotic heart disease of native coronary artery without angina pectoris; E78.5 Hyperlipidemia, unspecified; K21.9 Gastro-esophageal reflux disease without esophagitis; E78.00 Pure hypercholesterolemia, unspecified; Z99.81 Dependence on supplemental oxygen; Z79.4 Long term (current) use of insulin; Z91.041 Radiographic dye allergy status

== ENCOUNTER 2020-05-01 05:14 | Inpatient (IN) | payer OTHER ==
[~2020-05-01] VITALS: Ht 157.4 cm; Wt 117.2 kg
[~2020-05-01 05:14] MED LIST changes: -ISOSORBIDE MON120 MG PO; +ISOSORBIDE30 MG PO
[2020-05-01 05:22] VITALS: BP 140/67
[2020-05-01 05:31] LABS: ABG BASE EXCESS 9.5 mmol/L (-2.0-2.0); ARTERIAL BLOOD GAS PH 7.237 (7.35-7.45)
[2020-05-01 05:50] LABS: BASO # 0.1 10*3/uL (0.0-0.1); EOS % 0.1 % (1.0-4.0); HEMATOCRIT 34.2 % (37.0-47.0); LYMPH # 1.1 10*3/uL (1.3-4.4); LYMPH % 9.4 % (27.0-41.0); MEAN CELL VOLUME 79.4 fl (81.0-99.0); MEAN CORPUSCULAR HGB CONC 27.8 g/dl (33.0-37.0); MONO # 0.7 10*3/uL (0.1-1.0); MONO % 6.2 % (3.0-9.0); NEUT # 9.7 10*3/uL (2.3-7.9); NEUT % 82.9 % (47.0-73.0); NUCLEATED RED BLOOD CELL 0.2 % (0.0-0.0); PLATELET COUNT AUTOMATED 345 10*3/uL (130-400); RED BLOOD COUNT 4.31 10*6/uL (4.10-5.10); RED CELL DISTRI WIDTH 17.5 % (0-14.5); WHITE BLOOD COUNT 11.7 10*3/uL (4.8-10.8)
[2020-05-01 06:02] LABS: ALKALINE PHOSPHATASE 130 U/L (45-117); BUN 22 mg/dl (7-24); CHLORIDE 97 mmol/L (98-107); CREATININE 0.97 mg/dL (0.55-1.02); POTASSIUM 4.2 mmol/L (3.5-5.1); SGOT/AST 40 IU/L (3-35); SGPT/ALT 16 U/L (12-78); SODIUM 137 mmol/L (136-145); TOTAL PROTEIN 7.2 gm/dL (6.4-8.2)
[2020-05-01 06:08] LABS: TROPONIN I < 0.015 ng/ml (<0.045)
[2020-05-01 06:09] LABS: INTERNATIONAL NORM RATIO 1.2 (2.0-3.5)
[2020-05-01 06:49] VITALS: BP 116/52
[2020-05-01 07:50] VITALS: BP 134/58
[2020-05-01 08:34] LABS: ABG BASE EXCESS 10.3 mmol/L (-2.0-2.0); ARTERIAL BLOOD GAS PH 7.246 (7.35-7.45)
[2020-05-01] MEDS ORDERED: LOPRESSOR25 MG PO (09:56)
[2020-05-01] MEDS ORDERED: MILK OF MA400 MG/52 PO (09:57)
[2020-05-01] MEDS ORDERED: NITROSTAT0.4 MG SL (09:59)
[2020-05-01 10:00] VITALS: BP 118/63
[2020-05-01] MEDS ORDERED: SINGULAIR10 M1 PO (10:00)
[2020-05-01] MEDS ORDERED: VISTARIL50 MG PO (10:01)
[2020-05-01] MEDS ORDERED: ZOFRAN4 MG PO (10:02)
[2020-05-01] MEDS ORDERED: LASIX40 MG PO (10:03)
[2020-05-01] MEDS ORDERED: HUMALOG100 UNIT/2 SC (10:04)
[2020-05-01] MEDS ORDERED: LANTUS SOL100 UNIT/1 SC (10:04)
[2020-05-01] MEDS ORDERED: COLACE100 MG PO (10:06)
[2020-05-01] MEDS ORDERED: FLEET ENEMA 13133 ML R (10:06)
[2020-05-01] MEDS ORDERED: BUSPIRONE10 MG PO (10:07)
[2020-05-01] MEDS ORDERED: DULCOLAX10 M1 R (10:08)
[2020-05-01] MEDS ORDERED: SEPTDS PO (10:09)
[2020-05-01] MEDS ORDERED: PACERONE200 MG PO (10:10)
[2020-05-01] MEDS ORDERED: VENTOLIN 02.5 MG/3 M INH (10:11)
[2020-05-01 11:35] LABS: ARTERIAL BLOOD GAS PH 7.235 (7.35-7.45)
[2020-05-01 12:20] LABS: ABG BASE EXCESS 12.6 mmol/L (-2.0-2.0); ARTERIAL BLOOD GAS PH 7.304 (7.35-7.45)
[2020-05-01 14:07] LABS: BILIRUBIN Negative (Negative); BLOOD Negative (Negative); CLARITY Clear (Clear); COLOR Yellow (Yellow); GLUCOSE Negative (Negative); KETONE Negative (Negative); LEUKO ESTERASE Negative (Negative); NITRITE Negative (Negative); PH 5.5 (4.5-8.0); SPECIFIC GRAVITY 1.015 (1.001-1.030); UROBILINOGEN 0.2 E.U./dl (0.0-1.0)
[2020-05-01 14:16] LABS: WBC 0-2 wbc/hpf (0-5)
[2020-05-01 16:00] VITALS: BP 105/43
[2020-05-01 17:03] LABS: ABG BASE EXCESS 14.5 mmol/L (-2.0-2.0); ARTERIAL BLOOD GAS PH 7.274 (7.35-7.45)
[2020-05-01 17:27] LABS: ABG BASE EXCESS 14.5 mmol/L (-2.0-2.0); ARTERIAL BLOOD GAS PH 7.309 (7.35-7.45)
[2020-05-01 20:00] VITALS: BP 131/30
[2020-05-02] VITALS: BP 131/62
[2020-05-02 04:00] VITALS: BP 95/33
[2020-05-02 05:59] LABS: HEMATOCRIT 36.5 % (37.0-47.0); MEAN CELL VOLUME 79.2 fl (81.0-99.0); MEAN CORPUSCULAR HGB 21.9 pg (27.0-31.0); MEAN CORPUSCULAR HGB CONC 27.7 g/dl (33.0-37.0); MEAN PLATELET VOLUME 10.3 fl (9.6-12.3); PLATELET COUNT AUTOMATED 288 10*3/uL (130-400); RED BLOOD COUNT 4.61 10*6/uL (4.10-5.10); RED CELL DISTRI WIDTH 17.2 % (0-14.5); WHITE BLOOD COUNT 8.1 10*3/uL (4.8-10.8)
[2020-05-02 06:18] LABS: INTERNATIONAL NORM RATIO 1.2 (2.0-3.5)
[2020-05-02 06:32] LABS: BUN 20 mg/dl (7-24); CHLORIDE 94 mmol/L (98-107); SGPT/ALT 21 U/L (12-78); SODIUM 140 mmol/L (136-145)
[2020-05-02 06:35] LABS: ALKALINE PHOSPHATASE 124 U/L (45-117); CREATININE 0.69 mg/dL (0.55-1.02); SGOT/AST 41 IU/L (3-35); TOTAL PROTEIN 7.4 gm/dL (6.4-8.2)
[2020-05-02 07:17] LABS: BASOPHILS 1 % (0-1); PLATELET SUFFICIENCY NORMAL (NORMAL); POLYCHROMASIA SLIGHT; TOTAL CELLS COUNTED 100 #CELLS
[2020-05-02 07:51] LABS: ABG BASE EXCESS 17.2 mmol/L (-2.0-2.0); ARTERIAL BLOOD GAS PH 7.37 (7.35-7.45)
[2020-05-02 08:00] VITALS: BP 105/80
[2020-05-02 16:00] VITALS: BP 124/52
[2020-05-02 20:00] VITALS: BP 124/41
[2020-05-03] VITALS: BP 104/51
[2020-05-03 04:00] VITALS: BP 105/51
[2020-05-03 05:32] LABS: BUN 26 mg/dl (7-24); CHLORIDE 95 mmol/L (98-107); CREATININE 0.74 mg/dL (0.55-1.02); POTASSIUM 3.5 mmol/L (3.5-5.1); SODIUM 138 mmol/L (136-145)
[2020-05-03 05:49] LABS: BASO % 0.2 % (0.0-1.0); HEMATOCRIT 32.6 % (37.0-47.0); LYMPH # 0.4 10*3/uL (1.3-4.4); LYMPH % 5.4 % (27.0-41.0); MEAN CELL VOLUME 80.1 fl (81.0-99.0); MEAN CORPUSCULAR HGB 21.9 pg (27.0-31.0); MEAN CORPUSCULAR HGB CONC 27.3 g/dl (33.0-37.0); MEAN PLATELET VOLUME 11.2 fl (9.6-12.3); MONO # 0.2 10*3/uL (0.1-1.0); MONO % 2.7 % (3.0-9.0); NEUT # 7.3 10*3/uL (2.3-7.9); NEUT % 89.9 % (47.0-73.0); PLATELET COUNT AUTOMATED 266 10*3/uL (130-400); RED BLOOD COUNT 4.07 10*6/uL (4.10-5.10); RED CELL DISTRI WIDTH 17.4 % (0-14.5); WHITE BLOOD COUNT 8.1 10*3/uL (4.8-10.8)
[2020-05-03 07:55] LABS: ABG BASE EXCESS 13.4 mmol/L (-2.0-2.0); ARTERIAL BLOOD GAS PH 7.384 (7.35-7.45)
[2020-05-03 08:00] VITALS: BP 110/36
[2020-05-03 12:00] VITALS: BP 107/56
[2020-05-03 16:00] VITALS: BP 125/67
[2020-05-03 20:00] VITALS: BP 135/57
[2020-05-04] VITALS: BP 134/57
[2020-05-04 04:00] VITALS: BP 120/60
[2020-05-04 06:32] LABS: BASO % 0.2 % (0.0-1.0); EOS % 0.1 % (1.0-4.0); HEMATOCRIT 33.9 % (37.0-47.0); LYMPH % 11.3 % (27.0-41.0); MEAN CORPUSCULAR HGB 21.7 pg (27.0-31.0); MEAN PLATELET VOLUME 11.4 fl (9.6-12.3); MONO # 0.6 10*3/uL (0.1-1.0); MONO % 6.8 % (3.0-9.0); NEUT # 6.8 10*3/uL (2.3-7.9); NEUT % 81.1 % (47.0-73.0); PLATELET COUNT AUTOMATED 278 10*3/uL (130-400); RED BLOOD COUNT 4.24 10*6/uL (4.10-5.10); RED CELL DISTRI WIDTH 17.6 % (0-14.5); WHITE BLOOD COUNT 8.4 10*3/uL (4.8-10.8)
[2020-05-04 06:35] LABS: MEAN CORPUSCULAR HGB CONC 27.1 g/dl (33.0-37.0)
[2020-05-04 06:39] LABS: BUN 30 mg/dl (7-24); CHLORIDE 99 mmol/L (98-107); CREATININE 0.77 mg/dL (0.55-1.02); POTASSIUM 3.2 mmol/L (3.5-5.1); SODIUM 141 mmol/L (136-145)
[2020-05-04 08:00] VITALS: BP 110/56
[2020-05-04 08:18] LABS: ABG BASE EXCESS 10.8 mmol/L (-2.0-2.0); ARTERIAL BLOOD GAS PH 7.358 (7.35-7.45)
[2020-05-04 12:00] VITALS: BP 120/64
[2020-05-04 16:00] VITALS: BP 115/47
[2020-05-04 20:00] VITALS: BP 127/47
[2020-05-05] VITALS: BP 128/57
[2020-05-05 07:26] LABS: BUN 28 mg/dl (7-24); CHLORIDE 103 mmol/L (98-107); CREATININE 0.68 mg/dL (0.55-1.02)
[2020-05-05 07:34] LABS: SODIUM 142 mmol/L (136-145)
[2020-05-05 07:38] LABS: POTASSIUM 4.2 mmol/L (3.5-5.1)
[2020-05-05 08:00] VITALS: BP 107/57
[2020-05-05 12:00] VITALS: BP 112/42
[2020-05-05 16:00] VITALS: BP 128/69
[2020-05-05 20:00] VITALS: BP 115/43
[2020-05-05 23:10] VITALS: BP 115/59
[2020-05-06 07:18] LABS: BUN 26 mg/dl (7-24); CHLORIDE 103 mmol/L (98-107); CREATININE 0.69 mg/dL (0.55-1.02); POTASSIUM 4.2 mmol/L (3.5-5.1); SODIUM 142 mmol/L (136-145)
[2020-05-06 08:00] VITALS: BP 98/48
[2020-05-06] MEDS ORDERED: LYRICA300 MG PO (11:29)
[2020-05-06] MEDS ORDERED: HYDROCODONE-AC1 EAC1 PO (11:29)
[2020-05-06] MEDS ORDERED: PREDNISONE10 MG PO (11:29)
== END 2020-05-06 13:36 | disposition other institution (70) | DRG 291 ==
LOC: ED 05:14 → ICCU 06:22 → EDHOLD 06:22 → ICCU 07:13 → 4E 05-04 18:00
PROVIDERS: Emergency Medicine; Family Medicine; Internal Medicine; Internal Medicine Critical Care Medicine; Student in an Organized Health Care Education/Training Program; ADMIT Emergency Medicine; ATTEND Emergency Medicine
PROC: 5A09457 Assistance with Respiratory Ventilation, 24-96 Consecutive Hours, Continuous Positive Airway Pressure (ICD-10-PCS; principal; 2020-05-01)
PROC: 5A09357 Assistance with Respiratory Ventilation, Less than 24 Consecutive Hours, Continuous Positive Airway Pressure (ICD-10-PCS; 2020-05-04)
PROC: 5A09357 Assistance with Respiratory Ventilation, Less than 24 Consecutive Hours, Continuous Positive Airway Pressure (ICD-10-PCS; 2020-05-05)
PROC: 5A09357 Assistance with Respiratory Ventilation, Less than 24 Consecutive Hours, Continuous Positive Airway Pressure (ICD-10-PCS; 2020-05-06)
DX: I11.0 Hypertensive heart disease with heart failure (principal); J96.22 Acute and chronic respiratory failure with hypercapnia; J96.21 Acute and chronic respiratory failure with hypoxia; J44.1 Chronic obstructive pulmonary disease with (acute) exacerbation; E87.2 Acidosis; E44.0 Moderate protein-calorie malnutrition; I25.810 Atherosclerosis of coronary artery bypass graft(s) without angina pectoris; L97.929 Non-pressure chronic ulcer of unspecified part of left lower leg with unspecified severity; L97.919 Non-pressure chronic ulcer of unspecified part of right lower leg with unspecified severity; J45.51 Severe persistent asthma with (acute) exacerbation; Z68.41 Body mass index [BMI] 40.0-44.9, adult; K21.9 Gastro-esophageal reflux disease without esophagitis; F41.9 Anxiety disorder, unspecified; E11.65 Type 2 diabetes mellitus with hyperglycemia; R74.01 Elevation of levels of liver transaminase levels; D64.9 Anemia, unspecified; F32.9 Major depressive disorder, single episode, unspecified; E03.9 Hypothyroidism, unspecified; E11.40 Type 2 diabetes mellitus with diabetic neuropathy, unspecified; E66.9 Obesity, unspecified; G89.29 Other chronic pain; M54.9 Dorsalgia, unspecified; X58.XXXS Exposure to other specified factors, sequela; G47.33 Obstructive sleep apnea (adult) (pediatric); E87.6 Hypokalemia; L85.3 Xerosis cutis; I50.33 Acute on chronic diastolic (congestive) heart failure; E78.00 Pure hypercholesterolemia, unspecified; Z20.828 Contact with and (suspected) exposure to other viral communicable diseases; F17.210 Nicotine dependence, cigarettes, uncomplicated; S81.802S Unspecified open wound, left lower leg, sequela; T81.32XS Disruption of internal operation (surgical) wound, not elsewhere classified, sequela; Z91.041 Radiographic dye allergy status; Z90.49 Acquired absence of other specified parts of digestive tract; Z90.710 Acquired absence of both cervix and uterus; Z95.1 Presence of aortocoronary bypass graft; Z95.5 Presence of coronary angioplasty implant and graft; Z82.49 Family history of ischemic heart disease and other diseases of the circulatory system; Z82.3 Family history of stroke; Z83.3 Family history of diabetes mellitus; Z82.0 Family history of epilepsy and other diseases of the nervous system; Z84.89 Family history of other specified conditions; Z79.899 Other long term (current) drug therapy

== ENCOUNTER 2020-05-22 15:38 | Inpatient (IN) | payer OTHER ==
[~2020-05-22] VITALS: Ht 165.1 cm; Wt 119.4 kg
[2020-05-22] VITALS (19 sets, daily range): BP systolic 109–166; BP diastolic 41–70
[~2020-05-22 15:38] MED LIST changes: +BUSPIRONE10 MG PO; +COLACE100 MG PO; +DULCOLAX10 M1 R; +FLEET ENEMA 13133 ML R; +HUMALOG100 UNIT/2 SC; +LANTUS SOL100 UNIT/1 SC; +LASIX40 MG PO; +LOPRESSOR25 MG PO; +MILK OF MA400 MG/52 PO; +PACERONE200 MG PO; +SEPTDS PO; +SINGULAIR10 M1 PO; +VENTOLIN 02.5 MG/3 M INH; +VISTARIL50 MG PO; +ZOFRAN4 MG PO
[2020-05-22 16:20] LABS: BASO # 0.1 10*3/uL (0.0-0.1); BASO % 0.5 % (0.0-1.0); EOS # 0.2 10*3/uL (0.0-0.4); HEMATOCRIT 36.4 % (37.0-47.0); LYMPH # 0.8 10*3/uL (1.3-4.4); LYMPH % 6.4 % (27.0-41.0); MEAN CELL VOLUME 78.1 fl (81.0-99.0); MEAN CORPUSCULAR HGB 20.8 pg (27.0-31.0); MEAN CORPUSCULAR HGB CONC 26.6 g/dl (33.0-37.0); MEAN PLATELET VOLUME 10.8 fl (9.6-12.3); MONO # 0.7 10*3/uL (0.1-1.0); MONO % 5.8 % (3.0-9.0); NEUT # 10.1 10*3/uL (2.3-7.9); NEUT % 84.9 % (47.0-73.0); PLATELET COUNT AUTOMATED 273 10*3/uL (130-400); RED BLOOD COUNT 4.66 10*6/uL (4.10-5.10); RED CELL DISTRI WIDTH 19.1 % (0-14.5); WHITE BLOOD COUNT 11.9 10*3/uL (4.8-10.8)
[2020-05-22 16:39] LABS: ACT PARTIAL THROMBO TIME 25.1 SECONDS (20.0-32.1)
[2020-05-22 16:46] LABS: ALBUMIN 3.1 gm/dl (3.1-4.5); ALKALINE PHOSPHATASE 120 U/L (45-117); BUN 15 mg/dl (7-24); CHLORIDE 103 mmol/L (98-107); CREATININE 0.66 mg/dL (0.55-1.02); POTASSIUM 4.5 mmol/L (3.5-5.1); SGOT/AST 18 IU/L (3-35); SGPT/ALT 19 U/L (12-78); SODIUM 143 mmol/L (136-145); TOTAL PROTEIN 7.4 gm/dL (6.4-8.2)
[2020-05-22 16:47] LABS: TROPONIN I < 0.015 ng/ml (<0.045)
[2020-05-22 17:41] LABS: ABG BASE EXCESS 3.1 mmol/L (-2.0-2.0)
[2020-05-22 17:54] LABS: ARTERIAL BLOOD GAS PH 7.185 (7.35-7.45)
[2020-05-22 21:35] LABS: ABG BASE EXCESS 7.8 mmol/L (-2.0-2.0); ARTERIAL BLOOD GAS PH 7.391 (7.35-7.45)
[2020-05-23] VITALS (25 sets, daily range): BP systolic 98–148; BP diastolic 36–68
[2020-05-23 06:13] LABS: BASO % 0.2 % (0.0-1.0); EOS # 0.2 10*3/uL (0.0-0.4); EOS % 1.9 % (1.0-4.0); LYMPH # 0.8 10*3/uL (1.3-4.4); LYMPH % 8.4 % (27.0-41.0); MEAN CELL VOLUME 76.6 fl (81.0-99.0); MEAN CORPUSCULAR HGB 20.9 pg (27.0-31.0); MEAN CORPUSCULAR HGB CONC 27.3 g/dl (33.0-37.0); MEAN PLATELET VOLUME 10.9 fl (9.6-12.3); MONO # 0.6 10*3/uL (0.1-1.0); MONO % 6.3 % (3.0-9.0); NEUT # 7.5 10*3/uL (2.3-7.9); PLATELET COUNT AUTOMATED 232 10*3/uL (130-400); RED BLOOD COUNT 4.31 10*6/uL (4.10-5.10); RED CELL DISTRI WIDTH 19.3 % (0-14.5)
[2020-05-23 06:45] LABS: ALBUMIN 2.5 gm/dl (3.1-4.5); ALKALINE PHOSPHATASE 100 U/L (45-117); BUN 16 mg/dl (7-24); CHLORIDE 102 mmol/L (98-107); CREATININE 0.59 mg/dL (0.55-1.02); SGOT/AST 15 IU/L (3-35); SGPT/ALT 14 U/L (12-78); TOTAL PROTEIN 6.3 gm/dL (6.4-8.2)
[2020-05-23 06:52] LABS: SODIUM 144 mmol/L (136-145)
[2020-05-23 06:54] LABS: POTASSIUM 3.4 mmol/L (3.5-5.1)
[2020-05-23 08:34] LABS: ABG BASE EXCESS 10.2 mmol/L (-2.0-2.0); ARTERIAL BLOOD GAS PH 7.411 (7.35-7.45)
[2020-05-23] MEDS ORDERED: LOPID600 M1 PO (11:25)
[2020-05-23] MEDS ORDERED: EFFIENT10 M1 PO (11:28)
[2020-05-23 15:12] LABS: ABG BASE EXCESS 10.7 mmol/L (-2.0-2.0); ARTERIAL BLOOD GAS PH 7.391 (7.35-7.45)
[2020-05-24] VITALS (21 sets, daily range): BP systolic 104–157; BP diastolic 40–82
[2020-05-24 06:23] LABS: BASO % 0.3 % (0.0-1.0); EOS # 0.2 10*3/uL (0.0-0.4); EOS % 2.2 % (1.0-4.0); HEMATOCRIT 33.4 % (37.0-47.0); LYMPH # 0.6 10*3/uL (1.3-4.4); LYMPH % 6.4 % (27.0-41.0); MEAN CELL VOLUME 76.6 fl (81.0-99.0); MEAN CORPUSCULAR HGB 20.6 pg (27.0-31.0); MEAN CORPUSCULAR HGB CONC 26.9 g/dl (33.0-37.0); MEAN PLATELET VOLUME 10.8 fl (9.6-12.3); MONO # 0.5 10*3/uL (0.1-1.0); MONO % 5.3 % (3.0-9.0); NEUT # 8.3 10*3/uL (2.3-7.9); NEUT % 85.5 % (47.0-73.0); PLATELET COUNT AUTOMATED 257 10*3/uL (130-400); RED BLOOD COUNT 4.36 10*6/uL (4.10-5.10); RED CELL DISTRI WIDTH 19.7 % (0-14.5); WHITE BLOOD COUNT 9.7 10*3/uL (4.8-10.8)
[2020-05-24 06:32] LABS: ALBUMIN 2.5 gm/dl (3.1-4.5); ALKALINE PHOSPHATASE 99 U/L (45-117); BUN 15 mg/dl (7-24); CHLORIDE 98 mmol/L (98-107); CREATININE 0.59 mg/dL (0.55-1.02); POTASSIUM 3.1 mmol/L (3.5-5.1); SGOT/AST 12 IU/L (3-35); SGPT/ALT 13 U/L (12-78); SODIUM 141 mmol/L (136-145); TOTAL PROTEIN 6.2 gm/dL (6.4-8.2)
[2020-05-24 08:02] LABS: ARTERIAL BLOOD GAS PH 7.459 (7.35-7.45)
[2020-05-25] VITALS (10 sets, daily range): BP systolic 107–138; BP diastolic 46–59
[2020-05-25 06:01] LABS: ALBUMIN 2.4 gm/dl (3.1-4.5); ALKALINE PHOSPHATASE 105 U/L (45-117); BUN 12 mg/dl (7-24); CHLORIDE 99 mmol/L (98-107); CREATININE 0.55 mg/dL (0.55-1.02); SGOT/AST 11 IU/L (3-35); SGPT/ALT 11 U/L (12-78); SODIUM 144 mmol/L (136-145); TOTAL PROTEIN 6.7 gm/dL (6.4-8.2)
[2020-05-25 06:20] LABS: BASO % 0.4 % (0.0-1.0); EOS # 0.2 10*3/uL (0.0-0.4); EOS % 1.7 % (1.0-4.0); HEMATOCRIT 33.9 % (37.0-47.0); LYMPH # 0.6 10*3/uL (1.3-4.4); LYMPH % 5.4 % (27.0-41.0); MEAN CELL VOLUME 77.4 fl (81.0-99.0); MEAN CORPUSCULAR HGB CONC 27.1 g/dl (33.0-37.0); MEAN PLATELET VOLUME 10.5 fl (9.6-12.3); MONO # 0.5 10*3/uL (0.1-1.0); MONO % 4.9 % (3.0-9.0); NEUT # 9.1 10*3/uL (2.3-7.9); NEUT % 87.3 % (47.0-73.0); PLATELET COUNT AUTOMATED 285 10*3/uL (130-400); RED BLOOD COUNT 4.38 10*6/uL (4.10-5.10); RED CELL DISTRI WIDTH 20.4 % (0-14.5); WHITE BLOOD COUNT 10.5 10*3/uL (4.8-10.8)
[2020-05-25 07:23] LABS: ARTERIAL BLOOD GAS PH 7.448 (7.35-7.45)
[2020-05-26] VITALS (8 sets, daily range): BP systolic 105–133; BP diastolic 41–67
[2020-05-26 06:18] LABS: CHLORIDE 104 mmol/L (98-107); POTASSIUM 3.2 mmol/L (3.5-5.1); SODIUM 146 mmol/L (136-145)
[2020-05-26 06:28] LABS: BUN 12 mg/dl (7-24); CREATININE 0.55 mg/dL (0.55-1.02); PREALBUMIN 9 mg/dl (20-40); TRIGLYCERIDES 289 mg/dl (<150)
[2020-05-26 06:34] LABS: BASO % 0.3 % (0.0-1.0); EOS # 0.4 10*3/uL (0.0-0.4); HEMATOCRIT 32.9 % (37.0-47.0); LYMPH # 0.7 10*3/uL (1.3-4.4); LYMPH % 5.5 % (27.0-41.0); MEAN CELL VOLUME 78.5 fl (81.0-99.0); MEAN CORPUSCULAR HGB CONC 26.7 g/dl (33.0-37.0); MEAN PLATELET VOLUME 10.5 fl (9.6-12.3); MONO # 0.7 10*3/uL (0.1-1.0); MONO % 5.6 % (3.0-9.0); NEUT # 10.1 10*3/uL (2.3-7.9); NEUT % 85.2 % (47.0-73.0); PLATELET COUNT AUTOMATED 281 10*3/uL (130-400); RED BLOOD COUNT 4.19 10*6/uL (4.10-5.10); RED CELL DISTRI WIDTH 20.6 % (0-14.5); WHITE BLOOD COUNT 11.8 10*3/uL (4.8-10.8)
[2020-05-26 08:21] LABS: ABG BASE EXCESS 10.2 mmol/L (-2.0-2.0); ARTERIAL BLOOD GAS PH 7.404 (7.35-7.45)
[2020-05-26 13:56] LABS: ABG BASE EXCESS 12.3 mmol/L (-2.0-2.0); ARTERIAL BLOOD GAS PH 7.42 (7.35-7.45)
[2020-05-26 17:26] LABS: ABG BASE EXCESS 10.3 mmol/L (-2.0-2.0); ARTERIAL BLOOD GAS PH 7.393 (7.35-7.45)
[2020-05-27] VITALS: BP 116/53
[2020-05-27 04:00] VITALS: BP 116/46
[2020-05-27 05:32] LABS: ALBUMIN 2.5 gm/dl (3.1-4.5); BUN 13 mg/dl (7-24); CHLORIDE 104 mmol/L (98-107); CREATININE 0.48 mg/dL (0.55-1.02); POTASSIUM 3.4 mmol/L (3.5-5.1); SGOT/AST 10 IU/L (3-35); SGPT/ALT 13 U/L (12-78); SODIUM 147 mmol/L (136-145); TOTAL PROTEIN 6.4 gm/dL (6.4-8.2)
[2020-05-27 05:33] LABS: ALKALINE PHOSPHATASE 89 U/L (45-117)
[2020-05-27 06:01] LABS: BASO % 0.3 % (0.0-1.0); EOS # 0.5 10*3/uL (0.0-0.4); EOS % 4.6 % (1.0-4.0); HEMATOCRIT 30.6 % (37.0-47.0); LYMPH # 0.7 10*3/uL (1.3-4.4); LYMPH % 6.7 % (27.0-41.0); MEAN CELL VOLUME 79.5 fl (81.0-99.0); MEAN CORPUSCULAR HGB 21.3 pg (27.0-31.0); MEAN CORPUSCULAR HGB CONC 26.8 g/dl (33.0-37.0); MEAN PLATELET VOLUME 10.7 fl (9.6-12.3); MONO # 0.6 10*3/uL (0.1-1.0); MONO % 5.2 % (3.0-9.0); NEUT # 8.6 10*3/uL (2.3-7.9); NEUT % 81.7 % (47.0-73.0); PLATELET COUNT AUTOMATED 290 10*3/uL (130-400); RED BLOOD COUNT 3.85 10*6/uL (4.10-5.10); RED CELL DISTRI WIDTH 20.4 % (0-14.5); WHITE BLOOD COUNT 10.5 10*3/uL (4.8-10.8)
[2020-05-27 07:42] LABS: ABG BASE EXCESS 10.2 mmol/L (-2.0-2.0); ARTERIAL BLOOD GAS PH 7.343 (7.35-7.45)
[2020-05-27 08:00] VITALS: BP 130/60
[2020-05-27 12:00] VITALS: BP 124/56
[2020-05-27 16:00] VITALS: BP 101/40
[2020-05-27 20:00] VITALS: BP 126/79
[2020-05-28] VITALS (7 sets, daily range): BP systolic 96–143; BP diastolic 43–80
[2020-05-28 05:29] LABS: ALBUMIN 2.9 gm/dl (3.1-4.5); ALKALINE PHOSPHATASE 88 U/L (45-117); BUN 19 mg/dl (7-24); CHLORIDE 108 mmol/L (98-107); POTASSIUM 3.8 mmol/L (3.5-5.1); SGOT/AST 9 IU/L (3-35); SGPT/ALT 14 U/L (12-78); SODIUM 149 mmol/L (136-145); TOTAL PROTEIN 6.8 gm/dL (6.4-8.2)
[2020-05-28 06:07] LABS: BASO % 0.5 % (0.0-1.0); EOS # 0.4 10*3/uL (0.0-0.4); HEMATOCRIT 30.9 % (37.0-47.0); LYMPH # 0.7 10*3/uL (1.3-4.4); LYMPH % 8.6 % (27.0-41.0); MEAN CELL VOLUME 81.3 fl (81.0-99.0); MEAN CORPUSCULAR HGB 20.8 pg (27.0-31.0); MEAN CORPUSCULAR HGB CONC 25.6 g/dl (33.0-37.0); MONO # 0.5 10*3/uL (0.1-1.0); MONO % 6.8 % (3.0-9.0); NEUT # 6.2 10*3/uL (2.3-7.9); NEUT % 78.7 % (47.0-73.0); PLATELET COUNT AUTOMATED 283 10*3/uL (130-400); RED CELL DISTRI WIDTH 20.6 % (0-14.5); WHITE BLOOD COUNT 7.8 10*3/uL (4.8-10.8)
[2020-05-29] VITALS (8 sets, daily range): BP systolic 110–142; BP diastolic 57–76
[2020-05-29 06:22] LABS: CHLORIDE 105 mmol/L (98-107); POTASSIUM 3.7 mmol/L (3.5-5.1); SODIUM 146 mmol/L (136-145)
[2020-05-29 06:26] LABS: BASO # 0.1 10*3/uL (0.0-0.1); BASO % 0.7 % (0.0-1.0); EOS # 0.4 10*3/uL (0.0-0.4); HEMATOCRIT 30.9 % (37.0-47.0); LYMPH # 0.8 10*3/uL (1.3-4.4); MEAN CELL VOLUME 80.3 fl (81.0-99.0); MEAN CORPUSCULAR HGB CONC 26.2 g/dl (33.0-37.0); MEAN PLATELET VOLUME 10.3 fl (9.6-12.3); MONO # 0.5 10*3/uL (0.1-1.0); MONO % 6.2 % (3.0-9.0); NEUT # 5.9 10*3/uL (2.3-7.9); NEUT % 77.6 % (47.0-73.0); NUCLEATED RED BLOOD CELL 0.3 % (0.0-0.0); PLATELET COUNT AUTOMATED 274 10*3/uL (130-400); RED BLOOD COUNT 3.85 10*6/uL (4.10-5.10); RED CELL DISTRI WIDTH 20.4 % (0-14.5); WHITE BLOOD COUNT 7.6 10*3/uL (4.8-10.8)
[2020-05-29 06:34] LABS: ALBUMIN 2.7 gm/dl (3.1-4.5); ALKALINE PHOSPHATASE 81 U/L (45-117); BUN 21 mg/dl (7-24); CREATININE 0.43 mg/dL (0.55-1.02); SGOT/AST 12 IU/L (3-35); SGPT/ALT 14 U/L (12-78); TOTAL PROTEIN 6.1 gm/dL (6.4-8.2)
[2020-05-30 16:00] VITALS: BP 109/49
[2020-05-30 20:00] VITALS: BP 132/54
[2020-05-31] VITALS: BP 113/60
[2020-05-31 06:43] LABS: BASO # 0.1 10*3/uL (0.0-0.1); BASO % 0.8 % (0.0-1.0); EOS # 0.4 10*3/uL (0.0-0.4); EOS % 4.9 % (1.0-4.0); HEMATOCRIT 31.8 % (37.0-47.0); LYMPH # 0.8 10*3/uL (1.3-4.4); LYMPH % 11.3 % (27.0-41.0); MEAN CELL VOLUME 79.3 fl (81.0-99.0); MEAN CORPUSCULAR HGB 20.9 pg (27.0-31.0); MEAN CORPUSCULAR HGB CONC 26.4 g/dl (33.0-37.0); MEAN PLATELET VOLUME 10.2 fl (9.6-12.3); MONO # 0.5 10*3/uL (0.1-1.0); MONO % 6.8 % (3.0-9.0); NEUT # 5.4 10*3/uL (2.3-7.9); NEUT % 75.4 % (47.0-73.0); NUCLEATED RED BLOOD CELL 0.3 % (0.0-0.0); PLATELET COUNT AUTOMATED 331 10*3/uL (130-400); RED BLOOD COUNT 4.01 10*6/uL (4.10-5.10); RED CELL DISTRI WIDTH 20.9 % (0-14.5); WHITE BLOOD COUNT 7.1 10*3/uL (4.8-10.8)
[2020-05-31 07:00] LABS: BUN 14 mg/dl (7-24); CHLORIDE 106 mmol/L (98-107); CREATININE 0.57 mg/dL (0.55-1.02); POTASSIUM 3.7 mmol/L (3.5-5.1); SODIUM 144 mmol/L (136-145)
[2020-05-31 08:00] VITALS: BP 134/80
[2020-05-31 12:00] VITALS: BP 125/68
[2020-05-31 16:03] VITALS: BP 126/61
[2020-05-31] MEDS ORDERED: DOXYCYCLINE100 M3 PO (17:34)
[2020-05-31] MEDS ORDERED: HYDROCODONE-AC1 EAC1 PO (17:34)
[2020-05-31] MEDS ORDERED: LYRICA300 MG PO (17:34)
[2020-05-31] MEDS ORDERED: PREDNISONE10 MG PO (17:34)
[2020-05-31] MEDS ORDERED: METOPROLOL TART50 M1 PO (17:34)
[2020-05-31 20:03] VITALS: BP 104/49
[2020-06-01] VITALS: BP 108/54
[2020-06-01 08:00] VITALS: BP 115/72
== END 2020-06-01 08:48 | disposition other institution (70) | DRG 208 ==
LOC: ED 15:38 → EDHOLD 18:41 → ICCU 18:41 → 5E 05-29 13:35
PROVIDERS: Emergency Medicine; Internal Medicine; Internal Medicine Critical Care Medicine; Student in an Organized Health Care Education/Training Program; ADMIT Internal Medicine; ATTEND Internal Medicine
PROC: 5A1945Z Respiratory Ventilation, 24-96 Consecutive Hours (ICD-10-PCS; 2020-05-22)
PROC: 0BH17EZ Insertion of Endotracheal Airway into Trachea, Via Natural or Artificial Opening (ICD-10-PCS; 2020-05-22)
PROC: 02H633Z Insertion of Infusion Device into Right Atrium, Percutaneous Approach (ICD-10-PCS; principal; 2020-05-25)
PROC: B548ZZA Ultrasonography of Superior Vena Cava, Guidance (ICD-10-PCS; 2020-05-25)
PROC: 5A09357 Assistance with Respiratory Ventilation, Less than 24 Consecutive Hours, Continuous Positive Airway Pressure (ICD-10-PCS; 2020-05-26)
PROC: 5A09357 Assistance with Respiratory Ventilation, Less than 24 Consecutive Hours, Continuous Positive Airway Pressure (ICD-10-PCS; 2020-05-27)
PROC: 5A09357 Assistance with Respiratory Ventilation, Less than 24 Consecutive Hours, Continuous Positive Airway Pressure (ICD-10-PCS; 2020-05-28)
PROC: 5A09357 Assistance with Respiratory Ventilation, Less than 24 Consecutive Hours, Continuous Positive Airway Pressure (ICD-10-PCS; 2020-05-29)
PROC: 5A09457 Assistance with Respiratory Ventilation, 24-96 Consecutive Hours, Continuous Positive Airway Pressure (ICD-10-PCS; 2020-05-30)
DX: J96.21 Acute and chronic respiratory failure with hypoxia (principal); I50.33 Acute on chronic diastolic (congestive) heart failure; G93.41 Metabolic encephalopathy; E43 Unspecified severe protein-calorie malnutrition; L03.116 Cellulitis of left lower limb; E87.2 Acidosis; J81.1 Chronic pulmonary edema; L03.115 Cellulitis of right lower limb; J96.22 Acute and chronic respiratory failure with hypercapnia; I11.0 Hypertensive heart disease with heart failure; D72.829 Elevated white blood cell count, unspecified; R00.1 Bradycardia, unspecified; D50.9 Iron deficiency anemia, unspecified; E83.41 Hypermagnesemia; E66.01 Morbid (severe) obesity due to excess calories; I25.10 Atherosclerotic heart disease of native coronary artery without angina pectoris; K21.9 Gastro-esophageal reflux disease without esophagitis; J44.9 Chronic obstructive pulmonary disease, unspecified; E11.65 Type 2 diabetes mellitus with hyperglycemia; F41.9 Anxiety disorder, unspecified; F32.9 Major depressive disorder, single episode, unspecified; E03.9 Hypothyroidism, unspecified; G89.29 Other chronic pain; M54.9 Dorsalgia, unspecified; G47.33 Obstructive sleep apnea (adult) (pediatric); Z20.828 Contact with and (suspected) exposure to other viral communicable diseases; E78.00 Pure hypercholesterolemia, unspecified; J45.909 Unspecified asthma, uncomplicated; E11.40 Type 2 diabetes mellitus with diabetic neuropathy, unspecified; B95.62 Methicillin resistant Staphylococcus aureus infection as the cause of diseases classified elsewhere; Z91.041 Radiographic dye allergy status; Z90.49 Acquired absence of other specified parts of digestive tract; Z90.710 Acquired absence of both cervix and uterus; Z95.1 Presence of aortocoronary bypass graft; Z95.5 Presence of coronary angioplasty implant and graft; Z81.8 Family history of other mental and behavioral disorders

== ENCOUNTER 2020-06-19 15:13 | Inpatient (IN) | payer OTHER ==
[~2020-06-19] VITALS: Ht 175.2 cm; Wt 116.3 kg
[2020-06-19 15:13] VITALS: BP 106/44
[~2020-06-19 15:13] MED LIST changes: +METOPROLOL TART50 M1 PO
[2020-06-19 15:42] LABS: BASO # 0.1 10*3/uL (0.0-0.1); BASO % 0.5 % (0.0-1.0); EOS # 0.2 10*3/uL (0.0-0.4); EOS % 1.7 % (1.0-4.0); HEMATOCRIT 34.3 % (37.0-47.0); LYMPH # 1.3 10*3/uL (1.3-4.4); LYMPH % 10.9 % (27.0-41.0); MEAN CELL VOLUME 78.9 fl (81.0-99.0); MEAN CORPUSCULAR HGB 20.7 pg (27.0-31.0); MEAN CORPUSCULAR HGB CONC 26.2 g/dl (33.0-37.0); MEAN PLATELET VOLUME 10.3 fl (9.6-12.3); MONO # 0.6 10*3/uL (0.1-1.0); MONO % 5.3 % (3.0-9.0); NEUT # 9.7 10*3/uL (2.3-7.9); NEUT % 81.2 % (47.0-73.0); NUCLEATED RED BLOOD CELL 0.1 10*3/uL (0.0-0.0); NUCLEATED RED BLOOD CELL 0.6 % (0.0-0.0); PLATELET COUNT AUTOMATED 232 10*3/uL (130-400); RED BLOOD COUNT 4.35 10*6/uL (4.10-5.10); RED CELL DISTRI WIDTH 21.2 % (0-14.5); WHITE BLOOD COUNT 11.9 10*3/uL (4.8-10.8)
[2020-06-19 16:00] LABS: ALBUMIN 2.7 gm/dl (3.1-4.5); ALKALINE PHOSPHATASE 107 U/L (45-117); BUN 27 mg/dl (7-24); CHLORIDE 104 mmol/L (98-107); POTASSIUM 4.3 mmol/L (3.5-5.1); SGOT/AST 11 IU/L (3-35); SGPT/ALT 12 U/L (12-78); SODIUM 142 mmol/L (136-145); TOTAL PROTEIN 6.6 gm/dL (6.4-8.2)
[2020-06-19 16:09] LABS: TROPONIN I < 0.015 ng/ml (<0.045)
[2020-06-19 16:15] VITALS: BP 90/46
[2020-06-19 16:18] LABS: ACT PARTIAL THROMBO TIME 23.8 SECONDS (20.0-32.1)
[2020-06-19 16:23] LABS: BILIRUBIN Negative (Negative); BLOOD Negative (Negative); CLARITY Clear (Clear); COLOR Yellow (Yellow); GLUCOSE Negative (Negative); KETONE Negative (Negative); LEUKO ESTERASE 1+ (Negative); NITRITE Positive (Negative)
[2020-06-19 16:32] LABS: BACTERIA 4+; WBC 16-20 wbc/hpf (0-5)
[2020-06-19 17:30] VITALS: BP 104/48
--- NOTE | 2020-06-19 17:30 | NUR ---
PERFORMED COMPLETE BED CHANGE. PT INCONTINENT OF URINE.
--- NOTE | 2020-06-19 17:38 | NUR ---
CODY MARELY PHONE NUMBER IS [phone].
[2020-06-19 18:40] VITALS: BP 99/40
--- NOTE | 2020-06-19 19:00 | NUR ---
RESPIRATORY NOTIFIED THAT PATIENT IS PRESCRIBED A BREATHING TREATMENT.
--- NOTE | 2020-06-19 19:02 | NUR ---
PT RESTING IN BED WITH EYES CLOSED. RESPIRATIONS EASY AND REGULAR. [address] IV FLUIDS INFUSING. CALL LIGHT IN REACH.
--- NOTE | 2020-06-19 19:08 | NUR ---
SERIAL ECG DISCONTINUED PER DR. CHANEL ORDER.
[2020-06-19 22:01] VITALS: BP 128/56
[2020-06-19 22:30] VITALS: BP 137/63
--- NOTE | 2020-06-19 22:30 | NUR ---
A 59, admitted to 5E, under the services of CHELSEA Pineda DO with a diagnosis of UTI,ALTERED MENTAL STATUS,COPD EXACERBATION. Chief complaint is SOB, CHANGE OF MENTAL STATUS. Patient arrived via stretcher from ER. Monitor applied. Initial assessment completed. Vital signs taken and recorded. CHELSEA PINEDA DO notified of admission to the unit. Orders received. See assessment for past medical history, medications and allergies. Patient and/or family oriented to unit. [facility] 5TH FLOOR visitation policy reviewed. Clothing/patient valuable form completed. NOVA SANTANA
--- NOTE | 2020-06-19 23:00 | NUR ---
PATIENT REFUSING PHOTOS OF BILATERAL HEELS, BUTTOCKS, AND UNDERNEATH BREASTS.
--- NOTE | 2020-06-20 05:00 | NUR ---
PATIENT RIPPED IV OUT. NEW 24G IV STARTED IN LEFT HAND.
--- NOTE | 2020-06-20 06:22 | NUR ---
ATTEMPTED TO CALL DR. VELASQUEZ WITH NEW CONSULT. NO ANSWER WILL RETRY.
--- NOTE | 2020-06-20 06:26 | NUR ---
DR. VELASQUEZ CALLED BACK. STATED TO ORDER STAT ABG'S AND PLACE PATIENT ON BIPAP. ORDERS PLACED.
[2020-06-20 06:39] LABS: HEMATOCRIT 34.9 % (37.0-47.0); MEAN CELL VOLUME 78.3 fl (81.0-99.0); MEAN CORPUSCULAR HGB 20.9 pg (27.0-31.0); MEAN CORPUSCULAR HGB CONC 26.6 g/dl (33.0-37.0); MEAN PLATELET VOLUME 10.9 fl (9.6-12.3); NUCLEATED RED BLOOD CELL 0.3 % (0.0-0.0); PLATELET COUNT AUTOMATED 207 10*3/uL (130-400); RED BLOOD COUNT 4.46 10*6/uL (4.10-5.10); RED CELL DISTRI WIDTH 21.2 % (0-14.5); WHITE BLOOD COUNT 10.6 10*3/uL (4.8-10.8)
[2020-06-20 06:52] LABS: BUN 31 mg/dl (7-24); CHLORIDE 103 mmol/L (98-107); CHOLESTEROL 136 mg/dL (<200); CREATININE 0.78 mg/dL (0.55-1.02); HDL CHOLESTEROL 32 mg/dl (40-60); LDL CHOLESTEROL 77 mg/dL (9-159); SODIUM 142 mmol/L (136-145); TRIGLYCERIDES 136 mg/dl (<150); VLDL CHOLESTEROL 27 mg/dL (6-40)
[2020-06-20 06:59] LABS: ABG BASE EXCESS 3.6 mmol/L (-2.0-2.0); ARTERIAL BLOOD GAS PH 7.26 (7.35-7.45)
--- NOTE | 2020-06-20 07:09 | NUR ---
NOTIFIED DR. VELASQUEZ OF BLOOD GAS RESULTS. STATED TO GET STAT ABG'S IN [address] BIPAP ON PATIENT 04/05.
[2020-06-20 07:35] LABS: TOTAL CELLS COUNTED 100 #CELLS
[2020-06-20 07:36] LABS: MICROCYTOSIS SLIGHT; OVALOCYTES FEW; PLATELET SUFFICIENCY NORMAL (NORMAL); POLYCHROMASIA SLIGHT
[2020-06-20 08:00] VITALS: BP 123/60
--- NOTE | 2020-06-20 08:30 | NUR ---
Discharge Plannerin to talk to patient in her Room. Patient states lives at with Home but is a Current Short Term Resident at [facility] receiving Therapy. There are No steps in the home. Physician: Dr. Mayer Pharmacy: Pt. 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 will receive her care at [facility] and the Manager Background at the Facility will arrange her appointments Does patient want to access PORTAL?: declined Discharge plan Pt. to return to [facility] to Complete her Therapy Short Term. BHUPINDER PICKETT LPN
--- NOTE | 2020-06-20 08:36 | NUR ---
PT RESTING IN BED/ EYES CLOSED. WILL MONITOR
[2020-06-20 09:38] LABS: ARTERIAL BLOOD GAS PH 7.318 (7.35-7.45)
--- NOTE | 2020-06-20 09:46 | NUR ---
ABG RESULTS CALLED TO DR. VELASQUEZ. INSTRUCTED TO CONTINUE CURRENT BIPAP SETTINGS, INCREASE O2 TO 6L, AND REPEAT ABG IN AM ON 06/21/20.
--- NOTE | 2020-06-20 09:56 | NUR ---
O2 INCREASED TO 6L
--- NOTE | 2020-06-20 10:24 | NUR ---
PT REQUESTED AND GIVEN TYLENOL FOR HEADACHE AND ZOFRAN FOR NAUSEA. WILL MONITOR
--- NOTE | 2020-06-20 11:00 | NUR ---
PT RESTING IN BED. EYES CLOSED. TYLENOL AND ZOFRAN APPEAR EFFECTIVE. WILL MONITOR
--- NOTE | 2020-06-20 11:15 | NUR ---
PHYSICAL THERAPY Physical Therapy evaluation completed on 5E with full evaluation to follow. Low complexity PT evaluation per chart review and evaluation, [id number]. Recommend physical therapy per plan of care and SNF upon discharge. Thank you for this referral. Allison Bailey, PT, DPT
--- NOTE | 2020-06-20 11:25 | NUR ---
Occupational Therapy evaluation completed on five with full evaluation to follow. Recommend occupational therapy per plan of care and SNF upon discharge. Thank you for this referral. Jennyfer Colon OTR/L
[2020-06-20 12:00] VITALS: BP 130/55
--- NOTE | 2020-06-20 12:12 | NUR ---
PODIATRY RESIDENT CALLED AND NOTIFIED OF CONSULT
--- NOTE | 2020-06-20 12:41 | NUR ---
SPOKE WITH PODIATRY RESIDENT , SHE STATES NO DRESSSING ON LEGS , ONLY BETADINE
[2020-06-20 16:00] VITALS: BP 138/64
--- NOTE | 2020-06-20 16:26 | NUR ---
Clinical Updates faxed to [facility] Attn: Shirley [phone].
--- NOTE | 2020-06-20 19:30 | NUR ---
PATIENT CONFUSED, AGIGATED. YELLING NON STOP. AGGRESIVE WITH STAFF. NOTIFIFED DR. CARDONA. SEE NEW ORDERS.
[2020-06-20 20:00] VITALS: BP 121/79
--- NOTE | 2020-06-20 20:28 | NUR ---
PATIENT MEDICATED WITH IV ATIVAN AT THIS TIME. WILL CHECK EFFECTIVENESS.
--- NOTE | 2020-06-20 21:59 | NUR ---
PATIENT SLEEPING. ATIVAN EFFECTIVE. NO SIGNS OF DISTRESS. BIPAP ON. WILL CONTINUE TO MONITOR.
[2020-06-21] VITALS: BP 126/64
--- NOTE | 2020-06-21 01:00 | NUR ---
PATIENT RIPPED IV OUT. NEW 22G IV STARTED IN LAC. PATIENT TOELRATED WELL. WILL CONTINUE TO MONITOR.
[2020-06-21 06:34] LABS: BASO % 0.2 % (0.0-1.0); EOS # 0.1 10*3/uL (0.0-0.4); EOS % 1.1 % (1.0-4.0); HEMATOCRIT 32.3 % (37.0-47.0); LYMPH # 1.2 10*3/uL (1.3-4.4); LYMPH % 10.1 % (27.0-41.0); MEAN CELL VOLUME 77.5 fl (81.0-99.0); MEAN CORPUSCULAR HGB 20.9 pg (27.0-31.0); MEAN CORPUSCULAR HGB CONC 26.9 g/dl (33.0-37.0); MEAN PLATELET VOLUME 10.9 fl (9.6-12.3); MONO # 0.6 10*3/uL (0.1-1.0); MONO % 4.9 % (3.0-9.0); NEUT # 10.2 10*3/uL (2.3-7.9); NEUT % 83.2 % (47.0-73.0); PLATELET COUNT AUTOMATED 234 10*3/uL (130-400); RED BLOOD COUNT 4.17 10*6/uL (4.10-5.10); RED CELL DISTRI WIDTH 21.9 % (0-14.5); WHITE BLOOD COUNT 12.2 10*3/uL (4.8-10.8)
[2020-06-21 06:45] LABS: BUN 30 mg/dl (7-24); CHLORIDE 105 mmol/L (98-107); CREATININE 0.72 mg/dL (0.55-1.02); POTASSIUM 3.9 mmol/L (3.5-5.1); SODIUM 142 mmol/L (136-145)
[2020-06-21 08:00] VITALS: BP 112/59
[2020-06-21 08:23] LABS: ABG BASE EXCESS 6.7 mmol/L (-2.0-2.0); ARTERIAL BLOOD GAS PH 7.27 (7.35-7.45)
--- NOTE | 2020-06-21 09:40 | NUR ---
PATIENT PLACED ON BI-PAP 04/05 WITH A 6 L/M BLEED IN. PULSE OX 94%.
--- NOTE | 2020-06-21 09:52 | NUR ---
OT NOTE Attempted to see pt this A.M. for OT session and upon arrival pt was supine in bed asleep with BIPAP in place. Will check back at a later time and continue with POC as able. COLLIN Walsh/Gustavo
--- NOTE | 2020-06-21 09:53 | NUR ---
PHYSICAL THERAPY Patient is on BI- PAP at 09:52 AM. Will check back later. OSCAR IRVERA INTERNET SALES MANAGER
[2020-06-21 11:57] LABS: ABG BASE EXCESS 8.2 mmol/L (-2.0-2.0); ARTERIAL BLOOD GAS PH 7.348 (7.35-7.45)
[2020-06-21 12:00] VITALS: BP 106/84
--- NOTE | 2020-06-21 12:45 | NUR ---
PATIENT TAKEN OFF OF BI-PAP, PLACED ON CANNULA AT 6 L/M.
--- NOTE | 2020-06-21 13:42 | NUR ---
OT NOTE Pt was seen this P.M. 1:1 for 15 minute OT session. Upon arrival pt was sitting upright on the EOB. Pt identified by name and and had complaints of increased fatigue. Pt presented to therapy with continuous 6L-O2 high flow which remained in place throughout the entire session. While sitting EOB pt completed AROM to B shoulder, elbow, wrist, and digit joints over all planes for 1 X 10 to increase and restore maximum functional use. Pt then completed two sit to stand transfers from bed level with CGA and use of w/w for UE support. Challenged pt's static standing tolerance needed for increased I in self care tasks and functional transfers. Pt was able to tolerate aprox 20 seconds at a time before sitting due to fatigue. Pt was left sitting upright on the EOB with call light in hand, tray table in place, and bed alarm activated for safety. Continue with rec D/C plan to SNF. PEARL Walsh
--- NOTE | 2020-06-21 15:52 | NUR ---
PHYSICAL THERAPY PATIENT WAS APPROACHED FOR THERAPY SESSION THIS AM AT 09:52 AND SHE WAS ON THE BI-PAP. WILL CHECK BACK AT LATER TIME/DATE. OSCAR RIVERA FUSE CUTTER
[2020-06-21 16:00] VITALS: BP 125/53
[2020-06-21 20:00] VITALS: BP 102/48
--- NOTE | 2020-06-21 20:18 | NUR ---
24 HR chart check completed.
--- NOTE | 2020-06-21 22:51 | NUR ---
PATIENT MEDICATED WITH NORCO FOR COMPLAINTS OF BACK PAIN. RATES 04/22. WILL CHECK EFFECTIVENESS.
--- NOTE | 2020-06-21 23:51 | NUR ---
PATIENT SLEEPING. NO SIGNS OF DISTRESS. NORCO EFFECTIVE. BED IN LOWEST POSITION,CALL LIGHT WITHIN REACH. BED ALARM ON. WILL CONTINUE TO MONITOR.
[2020-06-22] VITALS: BP 120/58
--- NOTE | 2020-06-22 04:00 | NUR ---
PATIENT SLEEPING. NO SIGNS OF DISTRESS. BIPAP ON. WILL CONTINUE TO MONITOR.
[2020-06-22 07:22] LABS: BASO % 0.2 % (0.0-1.0); EOS # 0.1 10*3/uL (0.0-0.4); EOS % 0.8 % (1.0-4.0); HEMATOCRIT 31.9 % (37.0-47.0); LYMPH # 1.3 10*3/uL (1.3-4.4); LYMPH % 12.4 % (27.0-41.0); MEAN CORPUSCULAR HGB CONC 27.6 g/dl (33.0-37.0); MEAN PLATELET VOLUME 10.6 fl (9.6-12.3); MONO # 0.5 10*3/uL (0.1-1.0); NEUT # 8.3 10*3/uL (2.3-7.9); NEUT % 80.5 % (47.0-73.0); PLATELET COUNT AUTOMATED 189 10*3/uL (130-400); RED CELL DISTRI WIDTH 21.8 % (0-14.5); WHITE BLOOD COUNT 10.3 10*3/uL (4.8-10.8)
[2020-06-22 07:30] LABS: BUN 28 mg/dl (7-24); CHLORIDE 106 mmol/L (98-107); CREATININE 0.66 mg/dL (0.55-1.02); SODIUM 144 mmol/L (136-145)
--- NOTE | 2020-06-22 07:30 | NUR ---
TOOK OVER CARE OF PT AT THIS TIME. PT RESTING IN BED. RESPIRATIONS UNLABORED ON BIPAP. HOB ELEVATED. SAFETY MEASURES IN PLACE. CALL LIGHT IN REACH.
[2020-06-22 07:33] LABS: POTASSIUM 5.1 mmol/L (3.5-5.1)
[2020-06-22 08:00] VITALS: BP 98/59
[2020-06-22 08:07] LABS: ABG BASE EXCESS 9.5 mmol/L (-2.0-2.0); ARTERIAL BLOOD GAS PH 7.356 (7.35-7.45)
[2020-06-22 09:26] VITALS: BP 112/62
--- NOTE | 2020-06-22 09:54 | NUR ---
OT NOTE Pt was seen this A.M. 1:1 for 20 minute OT session. Upon arrival pt was supine in bed. Pt identified by name and and had complaints of 7/10 low back pain. Pt prenseted to therapy with continuous 6L-O2 high flow. Pt transferred supine to sit EOB with Marly for assist with upper body. Pt completed sit to stand from bed level with Marly and use of w/w for UE support. While standing pt's depends were changed due to being soiled with maxA. Throughout pt presented with F- standing balance requiring UE support. Pt was able to tolerate aprox 2 minutes while changing depends. After a seated rest break pt completed second sit to stand from bed level with CGA and use of w/w for UE support. Pt was able to tolerate aprox 35 seconds this attempt before sitting due to fatigue. While sitting EOB pt completed BUE AROM over all planes for 1 X 10 to increase and restore maximum functional use. Pt was left sitting upright in the recliner with call light in hand, tray table in place, and phone in reach. Continue with rec D/C plan to SNF. COLLIN Walsh/Gustavo
--- NOTE | 2020-06-22 10:03 | NUR ---
PHYSICAL THERAPY Patient presented to therapy in supine in bed with head of bed elevated and bed alarm on. Patient is on 6 liters of hi-flow spO2 VIA NASAL CANULA. Patient gives informed consent for treatment. Patient was identified by name and on wristband. Patient completed supine > sitting on EOB with DOV A X 2. Patient sat on EOB with SBA. Patient performed STS x 2 < > EOB to Wh Walker with MIN A X 1 - CGA WITH VERBAL CUES for pushing off the bedrail with R hand. Patient stood for 1 minute the 1 st attempt and 35 sec the 2nd attempt. Patient performed sititng bilateral LE ther ex 2 x 10 reps each in all planes of moveemnt including LAqs, marches, hip abduction, hip adduction, and heel/toe raises for strengthening the LEs. Patient was left sitting on EOB with tray table in front of patient waiting for breakfast with call light within reach. Patient was 1:[address] COMMISSIONER for 20 minutes total[address] OSCAR RIVERA HIGHWAY COMMISSIONER
--- NOTE | 2020-06-22 10:40 | NUR ---
PT GIVEN NORCO FOR C/O PAIN TO BACK AND HIPS. WILL MONITOR FOR EFFECTIVENESS. CALL LIGHT IN REACH.
--- NOTE | 2020-06-22 11:38 | NUR ---
Precert is waived for Pt. to return to [facility]. Covid Swab Negative. Pt. can return to facility when Medically Stable.
--- NOTE | 2020-06-22 11:40 | NUR ---
PT STATES THAT NORCO IS EFFECTIVE.
[2020-06-22 12:00] VITALS: BP 116/58
--- NOTE | 2020-06-22 14:06 | NUR ---
PT RESTING IN BED. RESPIRATIONS EASY AND UNLABORED ON BIPAP. NO S/S OF DISTRESS. WILL MONITOR. CALL LIGHT IN REACH.
--- NOTE | 2020-06-22 15:53 | NUR ---
Nutritional Support Services Note: Pt is eating 100% of meals. Ht.5'9 Wt.256#. Wounds noted to bilateral legs, buttocks and breast. She receives an 1800cal diabetic diet as ordered. She doesn't want a supplement at this time. Will provide pt with a night snack. Encourage fluids secondary to UTI. Will follow as needed. Jennifer Hernandez Rdn Ld
[2020-06-22 16:00] VITALS: BP 102/60
--- NOTE | 2020-06-22 16:21 | NUR ---
PT GIVEN NORCO AT THIS TIME FOR C/O HIP/BACK PAIN. WILL MONITOR FOR EFFECTIVENESS. CALL LIGHT IN REACH.
--- NOTE | 2020-06-22 17:21 | NUR ---
SHYAM EFFECTIVE PER PT.
[2020-06-22 20:00] VITALS: BP 106/68
[2020-06-23] VITALS: BP 90/50
[2020-06-23 06:18] LABS: BASO % 0.1 % (0.0-1.0); EOS # 0.1 10*3/uL (0.0-0.4); EOS % 0.7 % (1.0-4.0); HEMATOCRIT 34.7 % (37.0-47.0); LYMPH # 1.2 10*3/uL (1.3-4.4); LYMPH % 10.5 % (27.0-41.0); MEAN CELL VOLUME 78.2 fl (81.0-99.0); MEAN CORPUSCULAR HGB 20.5 pg (27.0-31.0); MEAN CORPUSCULAR HGB CONC 26.2 g/dl (33.0-37.0); MONO # 0.5 10*3/uL (0.1-1.0); MONO % 4.5 % (3.0-9.0); NEUT # 9.4 10*3/uL (2.3-7.9); NEUT % 83.8 % (47.0-73.0); PLATELET COUNT AUTOMATED 182 10*3/uL (130-400); RED BLOOD COUNT 4.44 10*6/uL (4.10-5.10); RED CELL DISTRI WIDTH 21.3 % (0-14.5); WHITE BLOOD COUNT 11.2 10*3/uL (4.8-10.8)
[2020-06-23 06:39] LABS: BUN 24 mg/dl (7-24); CHLORIDE 102 mmol/L (98-107); CREATININE 0.57 mg/dL (0.55-1.02); SODIUM 139 mmol/L (136-145)
--- NOTE | 2020-06-23 07:00 | NUR ---
TOOK OVER CARE OF PT AT THIS TIME. PT REQUESTS TO SIT UP IN BED AND STATES THAT SHE WOULD LIKE BIPAP OFF. PT SWITCHED TO HFNC AT 6L. RESPIRATIONS UNLABORED.WILL CONTINUE MONITOR. BED ALARM IN PLACE. CALL LIGHT IN REACH.
[2020-06-23 08:00] VITALS: BP 117/54
--- NOTE | 2020-06-23 10:49 | NUR ---
OT NOTE Pt was seen this A.M. 1:1 for 18 minute OT session. Upon arrival pt was sitting upright on the EOB. Pt identified by name and . Pt presented to therapy with continuous 5L-O2 high flow which she remained on throughout the entire session. Pt's SpO2 reading 98%. Sit to stand completed from bed level with CGA and use of w/w for UE support. Standing pivot completed from the EOB to the bedside commode with CGA and use of w/w. Clothing management completed with maxA and toilet hygiene completed with maxA. Pt transferred on/off bedside commode with CGA and use of w/w. While sitting EOB pt completed BUE AROM over all planes of motion for 1 X 10 to increase and restore maximum functional use. Pt was left sitting upright on the EOB with call light in hand, tray table in place, and phone in reach. Continue with rec D/C plan to SNF. PEARL Walsh
--- NOTE | 2020-06-23 11:02 | NUR ---
PHYSICAL THERAPY Patient presented to therapy in sitting on EOB with 5 LITERS of spO2 VIA NASAL CANULA. Patient appears much more alert and energetic today. Patient gives informed consent for treatment. Patient was identified by name and on WRISTBAND. Patient sat on EOB with SBA. Patient completed STS x 3 seperate STSs with CGA. Patient stood the 1st attempt at Wh Walker for 1 minute 15 sec, 2 nd attempt) 1 minute 17 sec 3rd attempt) 1 min 20 sec. Patient performed sitting EOB ther ex 2 x 10 reps each for strengthening the LEs in all planes of movement including LAQs ,Marches and heel/toe raises 2 x 10 reps for strengthening the LEs. Patient was left in sitting on EOB with tray table in front of patient and call light within reach. Patient was 1:1 with this MOLASSES FEED MIXER for 22 minutes total. OSCAR RIVERA MOLASSES FEED MIXER
--- NOTE | 2020-06-23 11:33 | NUR ---
SPOKE WITH PT DAUGHTER TONEY ON PHONE AND UPDATED DAUGHTER ON PT STATUS. PT DAUGHTER REQUESTS THAT A DR EVALUATE PT FOR DEMENTIA. DR PENNINGTON NOTIFIED OF THIS.
[2020-06-23 12:00] VITALS: BP 110/61
--- NOTE | 2020-06-23 15:50 | NUR ---
PHYSICAL THERAPY CO-SIGN I approve of the Physical Therapy notes written above. Emma Tobias PT
--- NOTE | 2020-06-23 15:54 | NUR ---
OCCUPATIONAL THERAPY CO-SIGN I approve of the Occupational Therapy notes written above. MADISON SMITH, OTR/L
[2020-06-23 16:00] VITALS: BP 127/55
[2020-06-23 20:00] VITALS: BP 140/68
[2020-06-24] VITALS: BP 105/55
--- NOTE | 2020-06-24 05:36 | NUR ---
PATIENT MEDICATED WITH DULCOLAX FOR COMPLAINTS OF CONSTIPATION.
[2020-06-24 06:29] LABS: BASO % 0.1 % (0.0-1.0); EOS # 0.1 10*3/uL (0.0-0.4); EOS % 0.5 % (1.0-4.0); HEMATOCRIT 35.2 % (37.0-47.0); LYMPH # 1.1 10*3/uL (1.3-4.4); LYMPH % 8.3 % (27.0-41.0); MEAN CELL VOLUME 75.5 fl (81.0-99.0); MEAN CORPUSCULAR HGB 20.4 pg (27.0-31.0); MEAN PLATELET VOLUME 10.9 fl (9.6-12.3); MONO # 0.5 10*3/uL (0.1-1.0); MONO % 3.7 % (3.0-9.0); NEUT # 11.1 10*3/uL (2.3-7.9); NEUT % 87.1 % (47.0-73.0); PLATELET COUNT AUTOMATED 204 10*3/uL (130-400); RED BLOOD COUNT 4.66 10*6/uL (4.10-5.10); RED CELL DISTRI WIDTH 21.4 % (0-14.5); WHITE BLOOD COUNT 12.7 10*3/uL (4.8-10.8)
[2020-06-24 06:39] LABS: BUN 27 mg/dl (7-24); CHLORIDE 100 mmol/L (98-107); CREATININE 0.67 mg/dL (0.55-1.02); POTASSIUM 3.8 mmol/L (3.5-5.1); SODIUM 140 mmol/L (136-145)
[2020-06-24 08:00] VITALS: BP 118/63
--- NOTE | 2020-06-24 09:37 | NUR ---
PT MEDICATED WITH PRN NORCO FOR C/O PAIN TO BACK AND FEET 11/20. SEE EMAR FOR ADMINISTRATION.
--- NOTE | 2020-06-24 10:23 | NUR ---
PT REPORTS NORCO EFFECTIVE.
--- NOTE | 2020-06-24 11:19 | NUR ---
ATTEMPTED TO CALL CONSULT TO DR. CINTRON, NO ANSWER. MESSAGE LEFT.
[2020-06-24 12:00] VITALS: BP 120/60
[2020-06-24] MEDS ORDERED: PREDNISONE10 MG PO (12:40)
[2020-06-24] MEDS ORDERED: ACETAZOLAMIDE250 MG PO (12:40)
--- NOTE | 2020-06-24 13:21 | NUR ---
PT REFUSING DISCHARGE PICTURES OF WOUNDS AT THIS TIME.
--- NOTE | 2020-06-24 13:37 | NUR ---
DR HALL CALLED AND NOTIFIED OF DR CINTRON CONSULT FROM PODITARY AND ORDER TO DISCHARGE. SHE STATES SHE WILL TALK WITH DR LARA AND LET ME KNOW. DR HALL CALLED AND STATES OK TO DISCHARGE AND FOLLOW UP OUTPATIENT.
--- NOTE | 2020-06-24 13:39 | NUR ---
NOTIFIED DR. CINTRON OF PT DISCHARGING BACK TO [facility] AND OF CONSULT. REQUESTING FACE SHEET TO BE FAXED, , .
--- NOTE | 2020-06-24 14:01 | NUR ---
PT REQUESTING PRN NORCO FOR LEG AND BACK PAIN, ADMINISTERED PER ORDER, SEE EMAR. CALL LIGHT WITHIN REACH.
--- NOTE | 2020-06-24 14:35 | NUR ---
CALLED IN REPORT TO JOE AT [facility], SHE IS AWARE OF [facility] CONSULT AND THAT CONSULT HAS ALREADY BEEN CALLED IN.
--- NOTE | 2020-06-24 14:50 | NUR ---
Discharge instructions reviewed with patient/family. Patient receptive and verbalizes understanding. Follow-up care arranged. Written instructions given to patient/family. AGGIE DE LA ROSA IV REMOVED. CATHETER INTACT, DRESSING APPLIED. MARBIN LUND
== END 2020-06-24 14:50 | disposition other institution (70) | DRG 189 ==
LOC: ED 15:13 → 5E 19:01 → EDHOLD 19:01 → 5E 20:46
PROVIDERS: Emergency Medicine; Hospitalist; Internal Medicine; Internal Medicine Critical Care Medicine; Student in an Organized Health Care Education/Training Program; ADMIT Internal Medicine; ATTEND Internal Medicine
PROC: 5A09357 Assistance with Respiratory Ventilation, Less than 24 Consecutive Hours, Continuous Positive Airway Pressure (ICD-10-PCS; principal; 2020-06-20)
PROC: 5A0935A Assistance with Respiratory Ventilation, Less than 24 Consecutive Hours, High Flow/Velocity Cannula (ICD-10-PCS; 2020-06-20)
PROC: 5A09357 Assistance with Respiratory Ventilation, Less than 24 Consecutive Hours, Continuous Positive Airway Pressure (ICD-10-PCS; 2020-06-21)
PROC: 5A09357 Assistance with Respiratory Ventilation, Less than 24 Consecutive Hours, Continuous Positive Airway Pressure (ICD-10-PCS; 2020-06-22)
PROC: 5A09357 Assistance with Respiratory Ventilation, Less than 24 Consecutive Hours, Continuous Positive Airway Pressure (ICD-10-PCS; 2020-06-23)
PROC: 5A0935A Assistance with Respiratory Ventilation, Less than 24 Consecutive Hours, High Flow/Velocity Cannula (ICD-10-PCS; 2020-06-23)
PROC: 5A09357 Assistance with Respiratory Ventilation, Less than 24 Consecutive Hours, Continuous Positive Airway Pressure (ICD-10-PCS; 2020-06-24)
PROC: 5A0935A Assistance with Respiratory Ventilation, Less than 24 Consecutive Hours, High Flow/Velocity Cannula (ICD-10-PCS; 2020-06-24)
DX: J96.21 Acute and chronic respiratory failure with hypoxia (principal); G93.41 Metabolic encephalopathy; E43 Unspecified severe protein-calorie malnutrition; J44.1 Chronic obstructive pulmonary disease with (acute) exacerbation; N30.00 Acute cystitis without hematuria; L03.115 Cellulitis of right lower limb; L03.116 Cellulitis of left lower limb; I25.810 Atherosclerosis of coronary artery bypass graft(s) without angina pectoris; J45.901 Unspecified asthma with (acute) exacerbation; I50.32 Chronic diastolic (congestive) heart failure; E87.3 Alkalosis; J96.22 Acute and chronic respiratory failure with hypercapnia; E11.65 Type 2 diabetes mellitus with hyperglycemia; D50.9 Iron deficiency anemia, unspecified; F41.9 Anxiety disorder, unspecified; I11.0 Hypertensive heart disease with heart failure; G89.29 Other chronic pain; M54.9 Dorsalgia, unspecified; K21.9 Gastro-esophageal reflux disease without esophagitis; F32.9 Major depressive disorder, single episode, unspecified; E03.9 Hypothyroidism, unspecified; E66.9 Obesity, unspecified; E11.42 Type 2 diabetes mellitus with diabetic polyneuropathy; R00.1 Bradycardia, unspecified; Z90.49 Acquired absence of other specified parts of digestive tract; Z90.710 Acquired absence of both cervix and uterus; Z95.5 Presence of coronary angioplasty implant and graft; Z79.899 Other long term (current) drug therapy; Z79.4 Long term (current) use of insulin; Z79.82 Long term (current) use of aspirin; Z68.37 Body mass index [BMI] 37.0-37.9, adult; Z91.041 Radiographic dye allergy status; Z82.0 Family history of epilepsy and other diseases of the nervous system; Z20.828 Contact with and (suspected) exposure to other viral communicable diseases

== ENCOUNTER 2020-06-26 04:20 | Emergency (ER) | payer OTHER ==
[~2020-06-26] VITALS: Ht 152.4 cm; Wt 108.0 kg
[2020-06-26 04:20] VITALS: BP 152/64
[~2020-06-26 04:20] MED LIST changes: +ACETAZOLAMIDE250 MG PO
== END 2020-06-26 07:51 | disposition home or self-care (01) ==
LOC: ED 04:20
DX: S50.11XA Contusion of right forearm, initial encounter (principal); I25.10 Atherosclerotic heart disease of native coronary artery without angina pectoris; J44.9 Chronic obstructive pulmonary disease, unspecified; K21.9 Gastro-esophageal reflux disease without esophagitis; I11.0 Hypertensive heart disease with heart failure; I50.9 Heart failure, unspecified; E66.01 Morbid (severe) obesity due to excess calories; E11.65 Type 2 diabetes mellitus with hyperglycemia; Z87.891 Personal history of nicotine dependence; Z79.4 Long term (current) use of insulin; Z79.899 Other long term (current) drug therapy; Z79.82 Long term (current) use of aspirin; Z91.041 Radiographic dye allergy status; W18.39XA Other fall on same level, initial encounter; Y93.89 Activity, other specified; Y92.89 Other specified places as the place of occurrence of the external cause; Y99.8 Other external cause status

== ENCOUNTER 2020-06-28 06:45 | Inpatient (IN) | payer OTHER ==
[~2020-06-28] VITALS: Ht 167.6 cm; Wt 125.2 kg
[2020-06-28 07:05] VITALS: BP 131/57
--- NOTE | 2020-06-28 07:08 | NUR ---
PT 18/10, 100% ON BIPAP. PULSE OX 93%. RESPIRATORY WILL TITRATE BIPAP.
[2020-06-28 07:11] LABS: ABG BASE EXCESS 8.6 mmol/L (-2.0-2.0); ARTERIAL BLOOD GAS PH 7.377 (7.35-7.45)
[2020-06-28 07:15] LABS: HEMATOCRIT 38.1 % (37.0-47.0); MEAN CELL VOLUME 77.3 fl (81.0-99.0); MEAN CORPUSCULAR HGB 20.5 pg (27.0-31.0); MEAN CORPUSCULAR HGB CONC 26.5 g/dl (33.0-37.0); MEAN PLATELET VOLUME 11.2 fl (9.6-12.3); NUCLEATED RED BLOOD CELL 0.1 % (0.0-0.0); PLATELET COUNT AUTOMATED 374 10*3/uL (130-400); RED BLOOD COUNT 4.93 10*6/uL (4.10-5.10); RED CELL DISTRI WIDTH 21.5 % (0-14.5); WHITE BLOOD COUNT 22.1 10*3/uL (4.8-10.8)
[2020-06-28 07:31] LABS: ALBUMIN 3.1 gm/dl (3.1-4.5); ALKALINE PHOSPHATASE 113 U/L (45-117); BUN 23 mg/dl (7-24); CHLORIDE 101 mmol/L (98-107); CREATININE 0.77 mg/dL (0.55-1.02); POTASSIUM 3.3 mmol/L (3.5-5.1); SGOT/AST 11 IU/L (3-35); SGPT/ALT 21 U/L (12-78); SODIUM 140 mmol/L (136-145); TOTAL PROTEIN 6.8 gm/dL (6.4-8.2)
[2020-06-28 07:33] LABS: INTERNATIONAL NORM RATIO 1.1 (2.0-3.5); TOTAL CELLS COUNTED 100 #CELLS
[2020-06-28 07:34] LABS: MICROCYTOSIS SLIGHT; OVALOCYTES FEW; PLATELET SUFFICIENCY NORMAL (NORMAL); POLYCHROMASIA SLIGHT; TARGET CELLS FEW
[2020-06-28 07:37] LABS: ABG BASE EXCESS 8.1 mmol/L (-2.0-2.0); ARTERIAL BLOOD GAS PH 7.338 (7.35-7.45)
[2020-06-28 07:40] LABS: TROPONIN I < 0.015 ng/ml (<0.045)
--- NOTE | 2020-06-28 08:42 | NUR ---
PATIENT PRESENTS FROM [facility]. MACHINIST/MACHINE BUILDER FAXED PALLIATIVE ORDER TO [facility]. WHEN MEDICALLY STABLE PATIENT CAN RETURN TO [facility].
--- NOTE | 2020-06-28 08:57 | NUR ---
Received call from Dr. Kenyon regarding daughter and patient requesting [facility] for GIP. housekeeping worker/airport planner following.
--- NOTE | 2020-06-28 09:10 | NUR ---
Received order for [facility] hospice in patient admission. Contacted and spoke with Tani; faxed referral. He stated he will be contacting patients daughter to discuss hospice services. Will follow
--- NOTE | 2020-06-28 09:41 | NUR ---
Tani from [facility] stating their nurse Bird will be here meeting with the daughter before 12:00 noon. ER section forest fire warden Stacy notified.
--- NOTE | 2020-06-28 09:45 | NUR ---
PATIENTS O2 STAT DECREASED TO 79% AT THIS TIME. DR BAINS NOTIFIED AND IS IN ROOM WITH PATIENT AT THIS TIME. [facility]P HAS BEEN CALLED. THEY ARE CHANGING THE BIPAP SETTINGS TO 18/12 FROM 30/04. PATIENT IS TO BE PLACED ONTO HOSPICE.
--- NOTE | 2020-06-28 10:02 | NUR ---
EPAP INCREASED TO 12. IPAP REMAINS AT 18 FIO2 100%. SPO2 76%.
--- NOTE | 2020-06-28 10:46 | NUR ---
PATIENT IS ENROLLED IN [facility]. THIS NURSE SPOKE TO "AJ" THERE. [facility] PHONE NUMBER IS [phone]. STATES THAT PATIENTS CODE STATUS NEEDS TO BE CHANGED BEFORE HOSPICE CAN COME.
[2020-06-28 11:00] VITALS: BP 121/55
--- NOTE | 2020-06-28 11:47 | NUR ---
FAMILY STATES THAT THEY WANT TO SPEAK TO DR BAINS AT THIS TIME. STATES THAT THEY "DONT LIKE WHATS GOING ON RIGHT NOW" AND HOW SHE "APPEARS TO THEM". PATIENT IS ON HOSPICE AND [facility] IS HERE AT THIS TIME BUT WITH ANOTHER PATIENT WHICH IS WHY DR BAINS WAS CONTACTED.
--- NOTE | 2020-06-28 11:48 | NUR ---
According to [facility], patient does qualify for GIP services, however patient's family is not agreeing. Daughter agrees to hospice but patients son is not. Tea Washington RN is awaiting a final answer.
--- NOTE | 2020-06-28 11:55 | NUR ---
DR BAINS IN ROOM WITH PATIENT AND PATIENTS FAMILY AT THIS TIME. [facility] HERE WELL AND STATES THAT PATIENTS FAMILY HAS DECIDED ON GOING WITH HOSPICE FULLY FOR PATIENT.
[2020-06-28 12:00] VITALS: BP 93/47
[2020-06-28 13:00] VITALS: BP 82/41
[2020-06-28 14:00] VITALS: BP 76/37
--- NOTE | 2020-06-28 14:43 | NUR ---
BEDSIDE GIVEN TO MONA GOODSON AT THIS TIME. PATIENT TAKEN TO 5TH FLOOR. PATIENT HAS AGONAL RESPIRATIONS AND IS NOT RESPONSIVE AT THIS TIME. FAMILY THAT WAS IN ROOM HAS BEEN NOTIFIED OF PATIENT GOING TO THE FLOOR AND ARE WAITING IN THE WAITING AREA AT THIS TIME. FLOOR STATES IS OK FOR THEM TO GO UPSTAIRS.
== END 2020-06-28 12:35 | disposition hospice, home (50) | DRG 871 ==
LOC: ED 06:45 → EDHOLD 07:59
PROVIDERS: Emergency Medicine; ADMIT Family Medicine; ATTEND Family Medicine
PROC: 5A09357 Assistance with Respiratory Ventilation, Less than 24 Consecutive Hours, Continuous Positive Airway Pressure (ICD-10-PCS; principal; 2020-06-28)
DX: A41.9 Sepsis, unspecified organism (principal); J96.01 Acute respiratory failure with hypoxia; J96.02 Acute respiratory failure with hypercapnia; J12.89 Other viral pneumonia; E87.2 Acidosis; J44.1 Chronic obstructive pulmonary disease with (acute) exacerbation; J91.8 Pleural effusion in other conditions classified elsewhere; L03.116 Cellulitis of left lower limb; L03.115 Cellulitis of right lower limb; I50.9 Heart failure, unspecified; R65.20 Severe sepsis without septic shock; I48.91 Unspecified atrial fibrillation; F41.9 Anxiety disorder, unspecified; I25.10 Atherosclerotic heart disease of native coronary artery without angina pectoris; G89.29 Other chronic pain; M54.9 Dorsalgia, unspecified; F32.9 Major depressive disorder, single episode, unspecified; K21.9 Gastro-esophageal reflux disease without esophagitis; E03.9 Hypothyroidism, unspecified; E11.40 Type 2 diabetes mellitus with diabetic neuropathy, unspecified; E66.9 Obesity, unspecified; F17.210 Nicotine dependence, cigarettes, uncomplicated; E87.6 Hypokalemia; E11.65 Type 2 diabetes mellitus with hyperglycemia; E55.9 Vitamin D deficiency, unspecified; D75.1 Secondary polycythemia; D50.9 Iron deficiency anemia, unspecified; I11.0 Hypertensive heart disease with heart failure; Z66 Do not resuscitate; Z51.5 Encounter for palliative care; Z91.041 Radiographic dye allergy status; Z90.49 Acquired absence of other specified parts of digestive tract; Z95.1 Presence of aortocoronary bypass graft; Z95.5 Presence of coronary angioplasty implant and graft; Z90.710 Acquired absence of both cervix and uterus; Z81.8 Family history of other mental and behavioral disorders; Z68.37 Body mass index [BMI] 37.0-37.9, adult

== ENCOUNTER 2020-06-28 12:40 | Inpatient (IN) | payer OTHER ==
--- NOTE | 2020-06-28 14:40 | NUR ---
Time: 1440 A 59 year old FEMALE admitted to under services of [facility]. MONA JASSO
--- NOTE | 2020-06-28 14:45 | NUR ---
PATIENT FOUND WITHOUT PULSE, RESPIRATIONS AND BLOOD PRESSURE. ABSENCE OF VITALS WAS CONFIRMED BY 2 RN'S. PATIENT DNR-CC. PAPER SIGNED ON CHART. , ENVELOPE STAMPING MACHINE OPERATOR AND [facility] NOTIFIED.
--- NOTE | 2020-06-28 15:18 | NUR ---
FAMILY MEMBER HERE AND UPDATED ON PATIENT'S CONDITION. FAMILY MEMBER IN TO SEE PATIENT.
--- NOTE | 2020-06-28 15:30 | NUR ---
NO IV FLUIDS HAVE BEEN GIVEN WITHIN THE PAST HOUR.
--- NOTE | 2020-06-28 15:40 | NUR ---
ONE CALL NOTIFIED. OKAY TO RELEASE BODY. REFERENCE NUMBER [id number].
--- NOTE | 2020-06-28 15:40 | NUR ---
ONE CALL NOTIFIED AT THIS TIME. REFERENCE NUMBER [id number].
--- NOTE | 2020-06-28 18:41 | NUR ---
PATIENT'S NEXT OF KIN CALLED REGARDING CHOICE OF HOME. DAUGHTER (JOSE) UNDECIDED AT THIS TIME AND WILL LET US KNOW TOMORROW. REPAIRER FINISHED METAL MADE AWARE. BODY TAKEN TO [place] PER POLICY.
== END 2020-06-28 18:58 | disposition expired | DRG 871 ==
LOC: EDHOLD 12:40 → 5E 13:53
PROVIDERS: ADMIT Family Medicine; ATTEND Family Medicine
PROC: 5A09357 Assistance with Respiratory Ventilation, Less than 24 Consecutive Hours, Continuous Positive Airway Pressure (ICD-10-PCS; principal; 2020-06-28)
DX: A41.9 Sepsis, unspecified organism (principal); J96.01 Acute respiratory failure with hypoxia; J96.02 Acute respiratory failure with hypercapnia; J18.9 Pneumonia, unspecified organism; J44.1 Chronic obstructive pulmonary disease with (acute) exacerbation; L03.115 Cellulitis of right lower limb; J44.0 Chronic obstructive pulmonary disease with (acute) lower respiratory infection; Z51.5 Encounter for palliative care; R65.20 Severe sepsis without septic shock; Z20.828 Contact with and (suspected) exposure to other viral communicable diseases; Z66 Do not resuscitate; I48.91 Unspecified atrial fibrillation; F41.9 Anxiety disorder, unspecified; I25.10 Atherosclerotic heart disease of native coronary artery without angina pectoris; I50.9 Heart failure, unspecified; E87.6 Hypokalemia; E11.65 Type 2 diabetes mellitus with hyperglycemia; F32.9 Major depressive disorder, single episode, unspecified; E03.9 Hypothyroidism, unspecified; E55.9 Vitamin D deficiency, unspecified; M54.5 Low back pain; G89.29 Other chronic pain; D50.9 Iron deficiency anemia, unspecified; K21.9 Gastro-esophageal reflux disease without esophagitis; I11.0 Hypertensive heart disease with heart failure; E11.40 Type 2 diabetes mellitus with diabetic neuropathy, unspecified; E66.9 Obesity, unspecified; Z95.5 Presence of coronary angioplasty implant and graft; Z79.4 Long term (current) use of insulin; Z91.041 Radiographic dye allergy status; Z81.8 Family history of other mental and behavioral disorders; Z90.49 Acquired absence of other specified parts of digestive tract; Z90.710 Acquired absence of both cervix and uterus; Z95.1 Presence of aortocoronary bypass graft; Z68.37 Body mass index [BMI] 37.0-37.9, adult; Z79.899 Other long term (current) drug therapy